=== PATIENT | male | born 1950 | race Caucasian/White ===

== ENCOUNTER → 2018-06-14 09:58 | Outpatient (CLI) | payer MEDICARE, SELFPAY ==
--- NOTE | 2018-06-14 12:24 | NEURO ---
NCS and/or EMG Patient Report Ordering Doctor: Devorah Terry DATE OF SERVICE: 06/14/18 Naren Baker is a 68-year-old male presents for electrodiagnostic testing of the right upper limb. He has chief complaint of numbness pain and weakness in the right hand. Electrodiagnostic findings: The right median motor nerve demonstrates prolonged distal latency with reduced amplitude and reduced conduction velocity. Right ulnar motor response is within normal limits. Prolonged right median sensory distal latency. Prolonged right median F wave. Needle EMG testing reveals no evidence of denervation with normal motor unit action potentials. Electrodiagnostic impression: This is an abnormal study in the right upper limb. 1. Electrodiagnostic findings demonstrate right-sided median mononeuropathy. This is consistent with an advanced right carpal tunnel syndrome.
== END ==
PROVIDERS: Family Provider Family Medicine; PCP Family Medicine; Referring Provider Internal Medicine Rheumatology; Visit Provider Internal Medicine Rheumatology
DX: R20.2 Paresthesia of skin (principal); R20.0 Anesthesia of skin; M06.09 Rheumatoid arthritis without rheumatoid factor, multiple sites; G56.01 Carpal tunnel syndrome, right upper limb; M17.0 Bilateral primary osteoarthritis of knee; I26.99 Other pulmonary embolism without acute cor pulmonale; G40.909 Epilepsy, unspecified, not intractable, without status epilepticus; I10 Essential (primary) hypertension; G47.33 Obstructive sleep apnea (adult) (pediatric); F32.89 Other specified depressive episodes; I87.2 Venous insufficiency (chronic) (peripheral); Z79.899 Other long term (current) drug therapy
CPT/HCPCS: 95886; 95909

== ENCOUNTER → 2022-08-17 | Outpatient (CLI) | payer MEDICARE, SELFPAY | END | disposition home or self-care (01) | PROVIDERS: PCP Family Medicine; Visit Provider Internal Medicine Critical Care Medicine | DX: G47.33 Obstructive sleep apnea (adult) (pediatric) (principal) | CPT/HCPCS: 95810 ==

== ENCOUNTER 2022-10-06 06:37 | Day surgery (SDC) | payer MEDICARE, SELFPAY ==
[2022-10-06] MEDS: Lactated Ringers 1,000 ML 15 ML IV (07:22)
[2022-10-06 07:29] VITALS: BP 140/80; PULSE 62; RESP 18; TEMP 37.4; O2SAT 96; BMI 33.8
--- NOTE | 2022-10-06 08:50 | FOR_PTH ---
PATIENT: STEF MOSES LOC: [facility] [place][id number] AGE/SX: 72/M ROOM: RE10/06/[address]: Dr. Rober Samuels MD : 1950 BED: DIS: 10/06/2022 SPEC #: [id number] RECD: 10/06/22 11:19 STATUS: JOS GRANGER #: [id number] ANGELINA: 10/06/22 08:[address]: Rober Samuels DEPT: SURGICAL PATHOLOGY RECD BY: Saira Santamaria ENTERED: 10/06/22 12:26 SP TYPE: FORESKIN OTHR DR: Dr. Lakhwinder Zafar MD Tissues: Skin of foreskin, NOS Procedures: Surgery Specimen Level III HEADER OPERATION: Circumcision PRE-OP DIAGNOSIS: Phimosis TISSUE SUBMITTED: Foreskin MICROSCOPIC DIAGNOSIS Foreskin, circumcision: Focal mild chronic inflammation. DANYA:kavin 10/07/2022 MICROSCOPIC DESCRIPTION Slides are reviewed. GROSS DESCRIPTION Received in fixative is one container labeled with the patient's name and designated foreskin. The specimen consists of three irregular fragments of glistening guzman mucosa with hemorrhagic reddish-guzman submucosa that in aggregate measure 4.5 x 4.0 x 2.0 cm. Serial sections do not reveal mass lesions. Parking Line Painter sections are submitted in one cassette. / AM:kavin 10/06/2022 TC:3 CPT: 58418
[2022-10-06] MEDS: Cefazolin 2 GM in 0.9% Normal Saline 100 ML IV (09:04)
[2022-10-06] MEDS: Bupivacaine Mpf 0.5% 30 ML VIAL (10:01)
--- NOTE | 2022-10-06 10:09 | DCINST_ITS ---
Discharge Instructions Diet Discharge Diet: No restrictions, Light diet - advance as tolerated and Soft diet Activity Discharge Activity: Return to Normal Activity Dressing / Incision Call your doctor if your incision/area has: Continuous Slow Oozing, Increased Pain/ Swelling, Increased Redness and Foul Smelling Discharge Call your doctor if you observe: Fever of 101 or Higher, Numbness or Tingling, S hortness of breath, Dizziness, Calf discomfort and Uncontrolled pain Follow Up Care Please Follow Up With: Rober Samuels MD When: 2 weeks Test Results: Test results from this visit will be discussed in further detail at your follow- up appointment, if applicable. Discharge Plan Admission Primary Reason for Your Visit: Circumcision Attending Provider: Rober Samuels Primary Care Provider: Lakhwinder Zafar Discharge Orders/Prescriptions Prescriptions: New Neosporin ([id number]) 3.5mg-400 unit- 5,000 unit/gram ointment 1 applic topical TID Qty: 28.3 0RF Rx Instructions: apply to penis three times per day Continued lisinopril 20 mg tablet 20 mg PO DAILY amlodipine 10 mg tablet 10 mg PO DAILY warfarin 1 mg tablet 7 mg PO DAILY ferrous sulfate 325 mg (65 mg iron) tablet 325 mg PO DAILY sertraline [Zoloft] 100 mg tablet 100 mg PO DAILY lamotrigine 150 mg tablet 150 mg PO BID oxcarbazepine 150 mg tablet 150 mg PO DAILY pregabalin [Lyrica] 75 mg capsule 75 mg PO TID furosemide [Lasix] 20 mg tablet 40 mg PO BID tamsulosin 0.4 mg capsule 0.4 mg PO QHS prednisone 10 mg tablet 10 mg PO DAILY PRN (Reason: RA FLARE) hydrocodone-acetaminophen 5-300 mg tablet 1 tab PO PRN PRN (Reason: Pain) vitamin B complex [B Complex-Vitamin B12] Tablet 1 tab PO DAILY Tart Willis Extract 1,000 mg capsule 1,000 mg PO DAILY finasteride 5 mg tablet 5 mg PO DAILY metoprolol tartrate 50 mg tablet 50 mg PO BID oxcarbazepine 150 mg Tablet 300 mg PO QHS enoxaparin [Lovenox] 100 mg/mL Syringe 100 mg SUBCUT DAILY Referrals / Follow Up: Lakhwinder Zafar MD [Primary Care Provider] - Disposition Disposition (needs filled in before D/C Order can be placed): Home, Self Care
--- NOTE | 2022-10-06 10:09 | HP.PCM_ITS ---
HPI - General General Date of Service: 10/06/22 Chief Complaint: Phimosis and meatal stenosis [facility] Narrative STEF MOSES, is a 72 M who presents to do a circumcision and also a meatotomy [facility] Medical History (Updated 09/29/22 @ 11:42 by Magi Garcia) Ambulates with cane Anxiety BPH (benign prostatic hyperplasia) Cardiology follow-up encounter CHF (congestive heart failure) Depression Dietary restriction Diverticulosis Factor V Leiden mutation History of echocardiogram History of edema History of GI bleed History of stress test Hypertension Low iron Non-smoker Paroxysmal A-fib Prostate disease Pulmonary embolism Rash Rheumatoid arthritis Seizure disorder Shortness of breath on exertion Walker as ambulation aid Wears glasses Home Medications amlodipine 10 mg tablet 10 mg PO DAILY 07/19/22 [History Last Taken 10/06/22] ferrous sulfate 325 mg (65 mg iron) tablet 325 mg PO DAILY 07/19/22 [History Last Taken Unknown] finasteride 5 mg tablet 5 mg PO DAILY 07/19/22 [History Last Taken Unknown] furosemide 20 mg tablet (Lasix) 40 mg PO BID 07/19/22 [History Last Taken Unknown] hydrocodone 5 mg-acetaminophen 300 mg tablet 1 tab PO PRN PRN Pain 07/19/22 [History Last Taken Unknown] lamotrigine 150 mg tablet 150 mg PO BID 07/19/22 [History Last Taken 10/06/22] lisinopril 20 mg tablet 20 mg PO DAILY 07/19/22 [History Last Taken 10/06/22] metoprolol tartrate 50 mg tablet 50 mg PO BID 07/19/22 [History Last Taken 10/06/22] oxcarbazepine 150 mg tablet 150 mg PO DAILY 07/19/22 [History Last Taken 10/06/22] prednisone 10 mg tablet 10 mg PO DAILY PRN RA FLARE 07/19/22 [History Last Taken Unknown] pregabalin 75 mg capsule (Lyrica) 75 mg PO TID 07/19/22 [History Last Taken 10/06/22] sertraline 100 mg tablet (Zoloft) 100 mg PO DAILY 07/19/22 [History Last Taken Unknown] sour willis extract 1,000 mg capsule (Tart Willis Extract) 1,000 mg PO DAILY 07/19/22 [History Last Taken Unknown] tamsulosin 0.4 mg capsule 0.4 mg PO QHS 07/19/22 [History Last Taken Unknown] vitamin B complex (B Complex-Vitamin B12 tablet) 1 tab PO DAILY 07/19/22 [History Last Taken Unknown] warfarin 1 mg tablet 7 mg PO DAILY 07/19/22 [History Last Taken 10/01/22] enoxaparin 100 mg/mL subcutaneous syringe (Lovenox) 100 mg subcut DAILY BRIDGING 09/29/22 [History Last Taken 10/05/22] oxcarbazepine 150 mg tablet 300 mg PO QHS 09/29/22 [History Last Taken Unknown] neomycin-bacitracn Zn-polymyx 3.5 mg-400 unit-5,000 unit/gram top oint (Neosporin ([id number])) 1 applic topical TID #28.3 grams 10/06/22 [Rx Last Taken Unknown] Allergy/AdvReac Type Severity Reaction Status Date / Time No Known Allergies Allergy Unverified 09/29/22 11:14 Surgical History (Updated 09/29/22 @ 11:42 by Magi Garcia) History of carpal tunnel surgery of left wrist History of carpal tunnel surgery of right wrist History of esophagogastroduodenoscopy (EGD) Hx of oral surgery Hx of total knee arthroplasty Social History (Updated 07/20/22 @ 05:[address] Matthew Bellamy MD) household members: spouse housing: house current occupational status: retired history of recent travel: No Smoking Status: Never smoker alcohol intake: never substance use type: does not use Vital Signs Vital Signs Vital Signs: 10/06/22 07:29 10/06/22 07:29 Temperature 99.4 F H Temperature Source Temporal Pulse Rate 62 Respiratory Rate 18 Respiratory Pattern Normal Blood Pressure 140/80 H Blood Pressure Mean 100 Blood Pressure Source Monitor Blood Pressure Position Semi-Fowlers Blood Pressure Location Left Arm Pulse Ox 96 Oxygen Delivery Method Room Air Weight Weight: 101 kg Body Mass Index (BMI) 33.8
--- NOTE | 2022-10-06 10:11 | PCM.OPRPT ---
Report of Operation Date of Procedure: 10/06/22 Pre-Operative Diagnosis: Phimosis and stricture at the meatus Post-Operative Diagnosis: The same Surgery/Procedure Performed:: Circumcision and meatotomy Description of Surgical Findings:: Patient was taken back to the operating room after smooth induction of general anesthesia the penis was shaved prepped and draped in usual sterile fashion on examination he had a very tight scar down foreskin that was basically adherent to the glans of the penis with a pinpoint opening I made a circumcision ventral incision at the edge of the glans all the way around dissected down to I got the edge of the glans and then bivalve the foreskin off the glans I did essentially dissect the foreskin that was adhered to the glans all the way around freeing it up so it is a lot of inflammation between the glans and the foreskin at the dissect between the glans and the foreskin to get the foreskin off the glans was all scarred down once I removed all the foreskin that was stuck to the glans then the meatus was also scarred down I cut this open and then I placed several stitches in the meatus to do a meatotomy and open up the meatus to keep from scarring down we then reapproximated the shaft skin to the subcoronal skin all the way around to complete the circumcision bandages dressings and Coban was placed on the penis patient will be given instruction to remove the Coban to tomorrow and he will place neuro Neosporin cream on the tip of the penis to allow to heal 3 times a day follow-up in 2 weeks for checkup Surgeon: Rober Samuels Type of Anesthesia: General Admit VTE Documentation VTE Present on Admission: No VTE Mechan Device Prophylaxis: SCD's VTE Pharm Prophylaxis ordered?: No
[2022-10-06 10:19] VITALS: BP 120/68; BP 140/80; PULSE 71; RESP 18; TEMP 36.2; O2SAT 93
[2022-10-06 10:30] VITALS: BP 115/67; BP 140/80; PULSE 68; RESP 18; O2SAT 95
[2022-10-06 10:43] VITALS: BP 119/72; BP 140/80; PULSE 67; RESP 18; TEMP 36.2; O2SAT 93
[2022-10-06 10:47] VITALS: BP 122/70; BP 140/80; PULSE 72; RESP 18; TEMP 36.2; O2SAT 94
[2022-10-06 11:42] VITALS: BP 109/61; BP 140/80; PULSE 71; RESP 16; TEMP 37.1; O2SAT 92
== END 2022-10-06 12:01 | disposition home or self-care (01) ==
LOC: SDC 06:42 → AC 06:44
PROVIDERS: PCP Family Medicine; Referring Provider Urology; Visit Provider Urology
PROC: (CPT 54161; principal; 2022-10-06 08:40)
DX: N47.1 Phimosis (principal); I50.9 Heart failure, unspecified; I11.0 Hypertensive heart disease with heart failure; N35.811 Other urethral stricture, male, meatal; F41.9 Anxiety disorder, unspecified; F32.A Depression, unspecified; G47.33 Obstructive sleep apnea (adult) (pediatric); E61.1 Iron deficiency; N40.0 Benign prostatic hyperplasia without lower urinary tract symptoms; Z79.899 Other long term (current) drug therapy; Z79.01 Long term (current) use of anticoagulants
CPT/HCPCS: 54161; 53020; 88304; J7120; J2405

== ENCOUNTER → 2022-10-11 | Outpatient (CLI) | payer MEDICARE, SELFPAY ==
--- NOTE | 2022-10-12 10:19 | PFT ---
INTRODUCTION: The patient is a 72-year-old male that presents for pulmonary function studies secondary to a diagnosis of pulmonary embolism. Respiratory therapy reported good patient effort. Bronchodilators were used during testing. INTERPRETATION: Forced expiration spirometry demonstrates no evidence of a large airways obstructive ventilatory defect. There was no significant response to aerosolized bronchodilators. Spirograms are of good quality and plateau normally. Body plethysmography was performed and revealed a decreased TLC to 4.1 L, 68% of predicted, indicative of a moderate restrictive ventilatory impairment. Diffusing capacity by single breath CO was within normal limits. IMPRESSION: Moderate restrictive ventilatory impairment with preserved diffusing capacity.
== END | disposition home or self-care (01) ==
LOC: PSN 10:25
PROVIDERS: PCP Family Medicine; Referring Provider Internal Medicine Critical Care Medicine; Visit Provider Internal Medicine Critical Care Medicine
DX: J90 Pleural effusion, not elsewhere classified (principal)
CPT/HCPCS: 94060; 94726; 94729

== ENCOUNTER → 2022-10-15 | Outpatient (CLI) | payer MEDICARE, SELFPAY ==
[2022-10-15 12:30] VITALS: PULSE 64; PULSE 70; PULSE 74; PULSE 80; PULSE 81; PULSE 84; PULSE 87; PULSE 88; O2SAT 89; O2SAT 90; O2SAT 91; O2SAT 92; O2SAT 93
--- NOTE | 2022-10-15 12:49 | CT_ITS ---
INDICATION Right lower lobe infiltrate and left pleural effusion: Concern for ILD. EXAMINATION: CT CHEST WITHOUT CONTRAST - CT Chest W/O Contrast Injection TECHNIQUE: Helically acquired images were obtained of the chest. A radiation dose optimization technique was used for this scan. IV Contrast dosage and agent: None. COMPARISON: None. FINDINGS: LUNGS, PLEURA AND LARGE AIRWAYS: Small bilateral pleural effusions, right greater than left. Minimal patchy density containing a calcified granuloma at the left lung base thought to be dependent change. Since segmental atelectasis is also noted in the right lung base. No pneumothorax. THYROID: No thyroid lesions. HEART AND PERICARDIUM: Heart size is normal. No pericardial effusion. CORONARY ARTERIES: Minimal coronary artery calcifications are noted. VESSELS: Thoracic aorta is not dilated. Normal pulmonary arteries. MEDIASTINUM AND JELLY: No mediastinal or hilar adenopathy. Esophagus is unremarkable. No hiatal hernia. UPPER ABDOMEN: There is a gallstone without acute cholecystitis. The upper abdomen is otherwise grossly normal. BONES: Degenerative changes of the thoracic spine. CT/Chest without Contrast IMPRESSION: 1. Small bilateral pleural effusions with subsegmental atelectasis. 2. Calcified granulomata at the left lung base. 3. Degenerative changes of the thoracic spine. Electronically Signed: Paulino Biggs DO at 20:15 EDT Reading Location ID and State: [address] [place] [address] Tel [phone], Service support ,
--- NOTE | 2022-10-17 06:42 | PCM.PSN.6M ---
PSN 6 Minute Walk Test 6 Minute Walk Test 6 Minute Walk Test: 6 Minute Walk Test PSN:6-Minute Walk Test Start: 10/15/22 12:50 Freq: Status: Active Protocol: [id number] Document 10/15/22 12:30 [facility] (Rec: 10/15/22 12:53 [facility] [id number]) 6 Minute Walk Test Date Performed 10/15/22 Time Performed 12:30 Height 5 ft 8 in Weight: 221 lb Weight in Pounds 221.[address]: Dr Bellamy Assistive device used: Cane Pre-test Oxygen Delivery Method Room Air Pulse Ox (%) 93 Pulse Rate (60-100 beats/min) 64 Dyspnea Hermes Scale (0-10) 0 Exertion Hermes Scale (6-20) 6 1st minute Oxygen Delivery Method Room Air Pulse Ox (%) 92 Pulse Rate (60-100 beats/min) 74 2nd minute Oxygen Delivery Method Room Air Pulse Ox (%) 91 Pulse Rate (60-100 beats/min) 80 3rd minute Oxygen Delivery Method Room Air Pulse Ox (%) 90 Pulse Rate (60-100 beats/min) 81 4th minute Oxygen Delivery Method Room Air Pulse Ox (%) 89 Pulse Rate (60-100 beats/min) 84 5th minute Oxygen Delivery Method Room Air Pulse Ox (%) 89 Pulse Rate (60-100 beats/min) 87 6th minute Oxygen Delivery Method Room Air Pulse Ox (%) 90 Pulse Rate (60-100 beats/min) 88 Dyspnea Hermes Scale (0-10) 0.5 Exertion Hermes Scale (6-20) 13 Post-test Oxygen Delivery Method Room Air Pulse Ox (%) 92 Pulse Rate (60-100 beats/min) 70 Full Laps Walked 12 Partial Lap, Number of Tiles Walked 30 Total Distance Walked (ft) 738 Interpretation Interpretation: The patient ambulated 738 feet over the course of 6 minutes beginning on room air with the use of a cane. Pretesting oxygen saturation was noted to be 93% on room air. With ambulation, the ilda oxygen saturation was 89%. This represents a significant exertional oxygen desaturation, consistent with a pulmonary limitation to exercise tolerance. Recommendations Recommendations: There is no indication for the use of supplemental oxygen at this time. However, close interval follow-up was recommended, given the degree of oxygen desaturation noted during this study.
== END | disposition home or self-care (01) ==
LOC: CT 12:27
PROVIDERS: PCP Family Medicine; Referring Provider Internal Medicine Critical Care Medicine; Visit Provider Internal Medicine Critical Care Medicine
DX: J90 Pleural effusion, not elsewhere classified (principal); M06.9 Rheumatoid arthritis, unspecified
CPT/HCPCS: 71250; 94618

== ENCOUNTER 2023-02-09 08:09 | Observation (INO) | payer MEDICARE, SELFPAY ==
[2023-01-28 15:01] LABS: Absolute Lymphocyte Count 1.44 X10^3/uL (0.83-4.51); Absolute Neutrophil Count 3.6 X10^3/uL (2.0-7.7); Basophil# 0.02 X10^3/uL; Basophil% 0.3 % (0-1); Eosinophil# 0.16 X10^3/uL; Eosinophils% 2.8 % (0-5); Hematocrit 42.4 % (40-54); Hemoglobin 13.4 g/dL (13.0-16.5); Lymphocyte # 1.44 X10^3/ul (0.83-4.51); Mean Corp Hgb Conc 31.6 g/dL (32-36); Mean Corpuscular Hgb 28.6 pg (27.0-32.0); Mean Corpuscular Volume 90.6 fL (80-94); Monocyte# 0.51 X10^3/uL; Monocyte% 8.9 % (0-10); NRBC Flagged by Analyzer 0 % (0-5); Neutrophil % 62.7 % (47-70); Platelet Count 188 K/mm3 (150-450); RBC Distribution Width CV 15.8 % (11.6-14.6); RBC Distribution Width SD 52.5 fl (35.1-43.9); Red Blood Count 4.68 M/mm3 (4.6-6.2); White Blood Count 5.8 K/mm3 (4.4-11.0)
[2023-01-28 15:07] LABS: Partial Thromboplast Time 45.1 Seconds (24.1-36.2)
[2023-01-28 15:18] LABS: Anion Gap 3 (5-15); BUN 30 mg/dL (7-18); BUN/Creat Ratio 19.1 RATIO (10-20); Calcium,Total 8.5 mg/dL (8.5-10.1); Chloride 108 mmol/L (98-107); Creatinine, Serum 1.57 mg/dL (0.70-1.30); EST Glomerular Filtration Rate 46 mL/min (>60); Est Glom Filt Rate - Afr Amer 56 mL/min (>60); Glucose 121 mg/dL (74-106); Potassium 4.3 mmol/L (3.5-5.1); Sodium Level 141 mmol/L (136-145)
[2023-02-01 15:08] LABS: Lamotrigine (Lamictal) Level 3.5 ug/mL (2.0-20.0)
[2023-02-09] VITALS (11 sets, daily range): BP systolic 114–144; BP diastolic 65–86; PULSE 52–63; RESP 16–18; TEMP 36.1–36.9; O2SAT 93–97; BMI 35.4
[2023-02-09 06:47] LABS: INR Fingerstick 1.3
[2023-02-09] MEDS: Lactated Ringers 1,000 ML 15 ML IV ×2 (07:19→09:31)
--- NOTE | 2023-02-09 08:10 | HP.PCM_ITS ---
[facility] - General General Date of Service: 02/09/23 Chief Complaint: BPH with obstruction [facility] Narrative STEF MOSES, is a 72 M who presents for transurethral resection of the prostate he has obstruction of the prostate with hypertrophy of the prostate and outlet symptoms. We Viv resected prostate and also has some urge and urge symptoms possible that this may not get better with surgery this was explained to the patient. [facility], [facility] Medical History (Updated 01/26/23 @ 14:25 by Kirill Peoples) Ambulates with cane Anxiety BPH (benign prostatic hyperplasia) Cardiology follow-up encounter CHF (congestive heart failure) Depression Dietary restriction Diverticulosis Factor V Leiden mutation History of echocardiogram History of edema History of GI bleed History of stress test Hypertension Low iron Non-smoker Paroxysmal A-fib Prostate disease Pulmonary embolism Rash Rheumatoid arthritis Seizure disorder Shortness of breath on exertion Walker as ambulation aid Wears glasses Home Medications amlodipine 10 mg tablet 10 mg PO DAILY 07/19/22 [History Last Taken 02/09/23] ferrous sulfate 325 mg (65 mg iron) tablet 325 mg PO DAILY 07/19/22 [History Last Taken 02/08/23] furosemide 20 mg tablet (Lasix) 40 mg PO BID 07/19/22 [History Last Taken Unknown] hydrocodone 5 mg-acetaminophen 300 mg tablet 1 tab PO PRN PRN Pain 07/19/22 [History Last Taken 02/08/23] lamotrigine 150 mg tablet 150 mg PO BID 07/19/22 [History Last Taken 02/09/23] lisinopril 20 mg tablet 20 mg PO DAILY 07/19/22 [History Last Taken 10/06/22] metoprolol tartrate 50 mg tablet 50 mg PO BID 07/19/22 [History Last Taken 02/09/23] oxcarbazepine 150 mg tablet 150 mg PO DAILY 07/19/22 [History Last Taken 10/06/22] prednisone 10 mg tablet 10 mg PO DAILY PRN RA FLARE 07/19/22 [History Last Taken 02/09/23] pregabalin 75 mg capsule (Lyrica) 75 mg PO TID 07/19/22 [History Last Taken 02/09/23] sertraline 100 mg tablet (Zoloft) 100 mg PO DAILY 07/19/22 [History Last Taken Unknown] sour willis extract 1,000 mg capsule (Tart Willis Extract) 1,000 mg PO DAILY 07/19/22 [History Last Taken 02/09/23] vitamin B complex (B Complex-Vitamin B12 tablet) 1 tab PO DAILY 07/19/22 [History Last Taken 02/08/23] warfarin 1 mg tablet 7 mg PO DAILY 07/19/22 [History Last Taken 02/03/23] oxcarbazepine 150 mg tablet 300 mg PO QHS 09/29/22 [History Last Taken Unknown] ciprofloxacin HCl 500 mg tablet (Cipro) 500 mg PO BID #10 tabs 02/09/23 [Rx Last Taken Unknown] Allergy/AdvReac Type Severity Reaction Status Date / Time No Known Allergies Allergy Verified 02/09/23 07:07 Surgical History (Updated 09/29/22 @ 11:42 by Magi Garcia) History of carpal tunnel surgery of left wrist History of carpal tunnel surgery of right wrist History of esophagogastroduodenoscopy (EGD) Hx of oral surgery Hx of total knee arthroplasty Social History (Updated 07/20/22 @ 05:[address] Matthew Bellamy MD) household members: spouse housing: house current occupational status: retired history of recent travel: No Smoking Status: Never smoker alcohol intake: never substance use type: does not use Vital Signs Vital Signs Vital Signs: 02/09/23 07:10 02/09/23 07:10 Temperature 97.2 F L Temperature Source Temporal Pulse Rate 52 L Respiratory Rate 18 Respiratory Pattern Normal Blood Pressure 116/70 Blood Pressure Mean 85 Blood Pressure Source Monitor Blood Pressure Position Semi-Fowlers Blood Pressure Location Left Arm Pulse Ox 95 Oxygen Delivery Method Room Air Weight Weight: 105.6 kg Body Mass Index (BMI) 35.4 Results Lab / Micro Data 01/28/23 13:42 01/28/23 13:42 Labs: Laboratory Results - last 24 hr 02/09/23 06:46: POC PT 15.0 H, INR 1.3
--- NOTE | 2023-02-09 08:11 | DCINST_ITS ---
Discharge Instructions Diet Discharge Diet: No restrictions Activity Discharge Activity: Return to Normal Activity and May Not Drive (while taking narcotic pain medications.) Follow Up Care Please Follow Up With: Rober Samuels MD When: Call [phone] for an appointment Test Results: Test results from this visit will be discussed in further detail at your follow- up appointment, if applicable. Discharge Plan Admission Primary Reason for Your Visit: turp Attending Provider: Rober Samuels Primary Care Provider: Lakhwinder Zafar Consulting Providers: Cezar Thakkar Discharge Orders/Prescriptions Prescriptions: New ciprofloxacin HCl [Cipro] 500 mg tablet 500 mg PO BID Qty: 10 0RF Continued lisinopril 20 mg tablet 20 mg PO DAILY amlodipine 10 mg tablet 10 mg PO DAILY ferrous sulfate 325 mg (65 mg iron) tablet 325 mg PO DAILY sertraline [Zoloft] 100 mg tablet 100 mg PO DAILY lamotrigine 150 mg tablet 150 mg PO BID oxcarbazepine 150 mg tablet 150 mg PO DAILY pregabalin [Lyrica] 75 mg capsule 75 mg PO TID furosemide [Lasix] 20 mg tablet 40 mg PO BID prednisone 10 mg tablet 10 mg PO DAILY PRN (Reason: RA FLARE) hydrocodone-acetaminophen 5-300 mg tablet 1 tab PO PRN PRN (Reason: Pain) vitamin B complex [B Complex-Vitamin B12] Tablet 1 tab PO DAILY Tart Willis Extract 1,000 mg capsule 1,000 mg PO DAILY metoprolol tartrate 50 mg tablet 50 mg PO BID oxcarbazepine 150 mg Tablet 300 mg PO QHS Held warfarin 1 mg tablet 7 mg PO DAILY Hold Instructions: Resume on 02/23/23. Discontinued tamsulosin 0.4 mg capsule 0.4 mg PO QHS finasteride 5 mg tablet 5 mg PO DAILY Referrals / Follow Up: Rober Samuels MD [Med Staff - Active Staff] - Lakhwinder Zafar MD [Primary Care Provider] - Disposition Disposition (needs filled in before D/C Order can be placed): Home, Self Care
--- NOTE | 2023-02-09 08:25 | PROS_PTH ---
PATIENT: STEF MOSES LOC: [facility] U#:[id number] AGE/SX: 72/M [place] [facility] [place]: Dr. Rober Samuels MD : 1950 BED: 1 DIS: 02/10/2023 SPEC #: [id number] RECD: 02/09/23 11:45 STATUS: JOS GRANGER #: [id number] ANGELINA: 02/09/23 08:[address]: Rober Samuels DEPT: SURGICAL PATHOLOGY RECD BY: Saira Santamaria ENTERED: 02/09/23 12:55 SP TYPE: TURP OTHR DR: MD Dr. Lakhwinder Barnett MD Tissues: Prostate, NOS Procedures: Surgery Specimen Level IV HEADER OPERATION: Cysto, TUR prostate, Olympus PRE-OP DIAGNOSIS: Obstruction of prostate with hypertrophy of prostate and outlet symptoms TISSUE SUBMITTED: Prostate tissue MICROSCOPIC DIAGNOSIS Prostate tissue, transurethral resection: Benign prostatic hyperplasia, glandular and stromal type. Chronic inflammation. DANYA:kavin 02/10/2023 MICROSCOPIC DESCRIPTION Slides are reviewed. GROSS DESCRIPTION Received is one container labeled with the patient's name and designated prostate tissue. The specimen consists of multiple irregular fragments of pink-guzman, rubbery, soft tissue that in aggregate weigh 20.6 gm and measure in aggregate 6.5 x 6.0 x 2.5 cm. The entire specimen is submitted in ten cassettes. / DANYA:kavin 02/09/2023 TC:5 CPT: 13070
[2023-02-09] MEDS: Cefazolin 2 GM in 0.9% Normal Saline 100 ML IV (08:37)
--- NOTE | 2023-02-09 10:18 | OP.PCM_ITS ---
Report of Operation Date of Procedure: 02/09/23 Pre-Operative Diagnosis: BPH with obstruction Post-Operative Diagnosis: The same Surgery/Procedure Performed:: Transurethral section of prostate Description of Surgical Findings:: Patient was taken back to the operating room at the smooth induction of general anesthesia he was placed in dorsolithotomy position. The penis and testicles were prepped and draped in usual sterile fashion. Went into the bladder with a 21 Bangl[place]hi rigid cystourethroscope identified the verumontanum had a like a long verumontanum and he had significant bilateral hypertrophy and then inside the bladder he had a stretched out bladder with heavy trabeculations and saccules and diverticuli throughout the bladder from chronic obstruction. I then switched over to the [employer] bipolar resectoscope and resected started resecting prostate efforts to resected the floor the prostate all the way back to what appeared to be the verumontanum and then I resected the right lobe of the prostate all the way to the apex and anterior tissue then to resect the left lobe the prostate I then switched over the button to come to smooth out the resection but then there was still a lot of tissue switch to switch back over to the resection and Resecting We Eventually Identified the Root and Resected Right Back to the Verumontanum the Sphincter Appeared to Be Intact at the End Did Have a Nice Open Channel All the Way from the Bladder Neck into the Verumontanum I Did a Flow Test He Had Adequate Flow Not a Huge Flow but I Do Want to Resect More since It Was Very Close to the Sphincter so I Just Use the Button to Try to Very Carefully Smooth out the Apical Tissue to the Because Avoid Any Flapping Tissue and Have a Nice Open Channel. He Had an Adequate Flow after This and Then We Ellik out All the Chips Out Of the Bladder Cauterized the Bladder and Prostate Extensively to Obtain Hemostasis and Then Placed a 22 Bangladeshi Catheter in the Bladder for Continuous Irrigation. Patient Anesthetic Was Reversed Taken Back to the PACU in Good Condition We Will Keep Overnight for Irrigation and Then Tomorrow Morning We Will Take out the Catheter for Voiding Trial. Surgeon: Rober Samuels Type of Anesthesia: General Drains: 22fr 3way Estimated Blood Loss (mL): 0 Admit VTE Documentation VTE Present on Admission: No VTE Mechan Device Prophylaxis: SCD's VTE Pharm Prophylaxis ordered?: No
[2023-02-09] MEDS: 0.9% Normal Saline 1,000 ML 75 ML IV (12:36)
[2023-02-09] MEDS: Pregabalin 75 MG Capsule PO ×2 (14:32→21:48)
[2023-02-09] MEDS: Ciprofloxacin 400 MG/200 ML BAG 200 MG IV (15:42)
[2023-02-09] MEDS: Furosemide 40 MG Tablet PO (18:35)
[2023-02-09] MEDS: Metoprolol Tartrate 50 MG Tablet PO (21:47)
[2023-02-09] MEDS: OXcarbazepine 150 MG Tablet 300 MG PO (21:47)
[2023-02-09] MEDS: lamoTRIgine 150 MG Tablet PO (21:48)
[2023-02-09] MEDS: Docusate Sodium 100 MG Capsule 200 MG PO (21:48)
[2023-02-10 00:58] VITALS: BP 135/67; PULSE 74; RESP 16; TEMP 36.8; O2SAT 93
[2023-02-10] MEDS: 0.9% Normal Saline 1,000 ML 75 ML IV (01:15)
[2023-02-10 04:29] VITALS: BP 106/58; PULSE 67; RESP 18; TEMP 36.6; O2SAT 93
[2023-02-10] MEDS: Ciprofloxacin 400 MG/200 ML BAG 200 MG IV (04:51)
[2023-02-10] MEDS: Pregabalin 75 MG Capsule PO (04:56)
--- NOTE | 2023-02-10 07:22 | PCM.PN.GU ---
Subjective Subjective 72-year-old male status post TURP very large prostate very difficult anatomy due to very large resection but hopefully he will have good control of his bladder still we will remove his catheter this morning for voiding trial we discussed what to expect afterwards I did tell the patient has possibly Some bladder control problems initially but this should cure with time since I thought the sphincter was intact at the end of surgery but it was a very large prostate can have a difficult resection. I did see him in the office in 2 weeks for follow-up we will remove the catheter this morning and he can go home after urinate Objective Data Objective Data Vital Signs: Vital Signs Temp Pulse Resp BP Pulse Ox O2 Del Method O2 Flow Rate 97.8 F 67 18 106/58 L 93 Room Air 1 02/10/23 04:02/10/23 04:02/10/23 04:29 02/10/23 04:29 02/10/23 04:29 02/10/23 04:29 02/09/23 14:20 Oxygen Flow Rate (L/min) 1 Oxygen Delivery Method Room Air Weight: 105.6 kg Body Mass Index (BMI) 35.4 Intake & Output: Intake and Output for Last 24 Hours 02/08/23 02/09/23 02/10/23 23:59 23:59 23:59 Intake Total 1310 / 1310 1370.75 / 1370.75 Output Total 4050 / 4050 Balance -2740 / -2740 1370.75 / 1370.75 Lab / Micro Data 01/28/23 13:42 01/28/23 13:42
[2023-02-10 08:09] VITALS: BP 124/73; PULSE 64; RESP 17; TEMP 36.7; O2SAT 94
--- NOTE | 2023-02-10 10:02 | PHA.DC.MC.R ---
Pharmacy [facility] Pharm[facility] Service has performed discharge medication reconciliation and counseling for this patient. The patient was counseled on the following discharge medications and changes in medications for homegoing were reviewed. 1. Ciprofloxacin 2. Warfarin --> hold until 02/23/23 The Reason for Use, instructions for use, and potential side effects were reviewed for all new medications. The patient's questions regarding all of their medications were answered. The patient demonstrated some understanding but would benefit from further education and reinforcement. The patient's discharge medication list was reviewed for discrepancies and discrepancies were resolved. The patient was counselled by Elodia Johnson PharmD Candidate Medications at Discharge Home Medications amlodipine 10 mg tablet 10 mg PO DAILY 07/19/22 ferrous sulfate 325 mg (65 mg iron) tablet 325 mg PO DAILY 07/19/22 furosemide 20 mg tablet (Lasix) 40 mg PO BID 07/19/22 hydrocodone 5 mg-acetaminophen 300 mg tablet 1 tab PO PRN PRN Pain 07/19/22 lamotrigine 150 mg tablet 150 mg PO BID 07/19/22 lisinopril 20 mg tablet 20 mg PO DAILY 07/19/22 metoprolol tartrate 50 mg tablet 50 mg PO BID 07/19/22 oxcarbazepine 150 mg tablet 150 mg PO DAILY 07/19/22 prednisone 10 mg tablet 10 mg PO DAILY PRN RA FLARE 07/19/22 pregabalin 75 mg capsule (Lyrica) 75 mg PO TID 07/19/22 sertraline 100 mg tablet (Zoloft) 100 mg PO DAILY 07/19/22 sour willis extract 1,000 mg capsule (Tart Willis Extract) 1,000 mg PO DAILY 07/19/22 vitamin B complex (B Complex-Vitamin B12 tablet) 1 tab PO DAILY 07/19/22 warfarin 1 mg tablet 7 mg PO DAILY 07/19/22 oxcarbazepine 150 mg tablet 300 mg PO QHS 09/29/22 ciprofloxacin HCl 500 mg tablet (Cipro) 500 mg PO BID #10 tabs 02/09/23
[2023-02-10] MEDS: Docusate Sodium 100 MG Capsule 200 MG PO (10:06)
[2023-02-10] MEDS: lamoTRIgine 150 MG Tablet PO (10:15)
[2023-02-10] MEDS: Furosemide 40 MG Tablet PO (10:15)
[2023-02-10] MEDS: Lisinopril 20 MG Tablet PO (10:15)
[2023-02-10] MEDS: Sertraline 100 MG Tablet PO (10:15)
[2023-02-10 10:16] VITALS: PULSE 64
[2023-02-10] MEDS: Metoprolol Tartrate 50 MG Tablet PO (10:16)
[2023-02-10] MEDS: amLODIPine 10 MG Tablet PO (10:16)
[2023-02-10] MEDS: OXcarbazepine 150 MG Tablet PO (10:16)
--- NOTE | 2023-02-10 12:18 | NURSING ---
Pt voided twice since Denis taken out this morning. Pt voided 50cc of drk red urine, no clots. Pt voided again about an hour after the first void and voided 100cc total, still red but lightening up and no clots noted. Pt will be discharged. Has meds from Pharmacy, had them delivered from our [facility].
== END 2023-02-10 13:03 | disposition home or self-care (01) ==
LOC: ACINP 10:00 → SDC 10:01 → MS3 10:01
PROVIDERS: Anesthesiology; Admitting Provider Urology; PCP Family Medicine; Referring Provider Urology; Visit Provider Urology
PROC: (CPT 52601; principal; 2023-02-09 08:15)
DX: N40.1 Benign prostatic hyperplasia with lower urinary tract symptoms (principal); M06.9 Rheumatoid arthritis, unspecified; I11.0 Hypertensive heart disease with heart failure; I50.9 Heart failure, unspecified; I48.0 Paroxysmal atrial fibrillation; G40.909 Epilepsy, unspecified, not intractable, without status epilepticus; D68.51 Activated protein C resistance; N13.8 Other obstructive and reflux uropathy; Z86.711 Personal history of pulmonary embolism; G47.33 Obstructive sleep apnea (adult) (pediatric); Z79.899 Other long term (current) drug therapy; Z79.01 Long term (current) use of anticoagulants
CPT/HCPCS: 52601; 00914; 36415; 36416; 80048; 82542; 85025; 85610; 85730; 88305; 94668; 96361; 96365; 96366; 99221; J7030; J7120; G0378; J0744

== ENCOUNTER → 2023-08-24 | Outpatient (CLI) | payer MEDICARE, SELFPAY ==
[2023-08-24 16:41] LABS: Amphetamine Urine VISTA NEGATIVE (<1000 ng/mL); Barbiturate Urine VISTA NEGATIVE (< 200 ng/mL); Benzodiazepine Urine VISTA NEGATIVE (< 200 ng/mL); Cocaine Urine VISTA NEGATIVE (< 300 ng/mL); Ecstacy Urine VISTA NEGATIVE (< 500 ng/mL); Methadone Urine VISTA NEGATIVE (< 300 ng/mL); PCP Urine VISTA NEGATIVE (< 25 ng/mL); THC Urine VISTA NEGATIVE (< 50 ng/mL); Vista UDS pH Range 5
== END | disposition home or self-care (01) ==
PROVIDERS: PCP Family Medicine; Referring Provider Anesthesiology; Visit Provider Anesthesiology
DX: F11.20 Opioid dependence, uncomplicated (principal)
CPT/HCPCS: 80307

== ENCOUNTER 2024-01-11 08:43 | Outpatient (RCR) | payer MEDICARE, SELFPAY ==
[2024-01-11 09:04] VITALS: BP 135/72; PULSE 76; RESP 18; TEMP 36.6
--- NOTE | 2024-01-11 11:24 | HP.PCM_ITS ---
History of Present Illness Date of Service: 01/11/24 Chief Complaint: Follow-up on right buttocks abscess that opened and is now tunneling. 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 Eventually got worse and was sent to [facility] for surgical debridement and cultures was treated there with PICC line and a wound VAC. He is currently on a wound VAC draining a lot of fluid slight odor but not anything real bad. Does have 2 tunneling areas. He does have history of A-fib and congestive heart failure and had a DVT in the past and is currently on Coumadin. [facility] Medical History Wears glasses Depression Anxiety Rash Walker as ambulation aid Ambulates with cane Prostate disease Low iron Pulmonary embolism Dietary restriction Diverticulosis History of GI bleed Non-smoker Shortness of breath on exertion History of edema History of echocardiogram History of stress test Cardiology follow-up encounter BPH (benign prostatic hyperplasia) CHF (congestive heart failure) Paroxysmal A-fib Hypertension Seizure disorder Factor V Leiden mutation Rheumatoid arthritis Home Medications ?Medication ?Instructions ?Recorded ?Last Taken ?Type amlodipine 10 mg tablet 10 mg PO DAILY 07/19/22 02/09/23 History ferrous sulfate 325 mg (65 mg 325 mg PO DAILY 07/19/22 02/08/23 History iron) tablet furosemide 20 mg tablet (Lasix) 40 mg PO BID 07/19/22 Unknown History hydrocodone 5 mg-acetaminophen 300 1 tab PO PRN PRN Pain 07/19/22 02/08/23 History mg tablet lamotrigine 150 mg tablet 150 mg PO BID 07/19/22 02/09/23 History lisinopril 20 mg tablet 20 mg PO DAILY 07/19/22 10/06/22 History metoprolol tartrate 50 mg tablet 50 mg PO BID 07/19/22 02/09/23 History oxcarbazepine 150 mg tablet 150 mg PO DAILY 07/19/22 10/06/22 History prednisone 10 mg tablet 10 mg PO DAILY PRN RA FLARE 07/19/22 02/09/23 History pregabalin 75 mg capsule (Lyrica) 75 mg PO TID 07/19/22 02/09/23 History sertraline 100 mg tablet (Zoloft) 100 mg PO DAILY 07/19/22 Unknown History sour willis extract 1,000 mg 1,000 mg PO DAILY 07/19/22 02/09/23 History capsule (Tart Willis Extract) vitamin B complex (B 1 tab PO DAILY 07/19/22 02/08/23 History Complex-Vitamin B12 tablet) warfarin 1 mg tablet 7 mg PO DAILY 07/19/22 02/03/23 History oxcarbazepine 150 mg tablet 300 mg PO QHS 09/29/22 Unknown History oxybutynin chloride 10 mg mg PO 04/27/23 Unknown History tablet,extended release 24 hr potassium chloride 10 mEq meq PO 04/27/23 Unknown History tablet,extended release amoxicillin 875 mg-potassium 1 tab PO BID 01/11/24 Unknown History clavulanate 125 mg tablet amoxicillin 875 mg-potassium 1 tab PO BID 01/11/24 Unknown History clavulanate 125 mg tablet Allergy/AdvReac Type Severity Reaction Status Date / Time No Known Allergies Allergy Verified 04/27/23 08:44 Surgical History S/P TURP (~01/2023) History of esophagogastroduodenoscopy (EGD) Hx of oral surgery Hx of total knee arthroplasty History of carpal tunnel surgery of right wrist History of carpal tunnel surgery of left wrist Social History household members: spouse housing: house current occupational status: retired history of recent travel: No Smoking Status: Never smoker alcohol intake: never substance use type: does not use ROS Constitutional Constitutional: Reports systems reviewed and no addt'l complaints, except as documented Eyes Eyes: Reports systems reviewed and no addt'l complaints, except as documented ENT HEENT: Reports systems reviewed and no addt'l complaints, except as documented Cardiovascular Cardiovascular: Reports systems reviewed and no addt'l complaints, except as documented Respiratory/Chest Respiratory/Chest: Reports systems reviewed and no addt'l complaints, except as documented Gastrointestinal Gastrointestinal: Reports systems reviewed and no addt'l complaints, except as documented Genitourinary Genitourinary: Reports systems reviewed and no addt'l complaints, except as do cumented Musculoskeletal Musculoskeletal: Reports systems reviewed and no addt'l complaints, except as documented Integumentary Integumentary: Reports wounds and other Details: Rather large encompassing his right gluteal tyrell wound with positive depth and tunneling. Does have some odor Neurologic Neurologic: Reports systems reviewed and no addt'l complaints, except as documented Psychiatric Psychiatric: Reports systems reviewed and no addt'l complaints, except as documented Endocrine Endocrinology: Reports systems reviewed and no addt'l complaints, except as documented Hematologic/Lymphatic Hematologic/Lymphatic: Reports systems reviewed and no addt'l complaints, except as documented Allergic/Immunologic Allergic/Immunologic: Reports systems reviewed and no addt'l complaints, except as documented Vital Signs Vital Signs Vital Signs: 01/11/24 09:04 Temperature 98 F Temperature Source Temporal Pulse Rate 76 Respiratory Rate 18 Blood Pressure 135/72 H Blood Pressure Mean 93 Blood Pressure Source Monitor Blood Pressure Position Sitting Blood Pressure Location Right Arm Oxygen Delivery Method Room Air Physical Exam Const oriented x3 General Appearance: cooperative Exam Limitations: no limitations HEENT normocephalic Eyes General Eye: normal appearance of both eyes Neck General: normal visual inspection Resp normal respiratory effort Effort and Inspection: able to speak in complete sentences Cardio regular rate and regular rhythm GI Palpation: soft and no hepatosplenomegaly external exam normal Extremity normal to inspection Skin Wounds: wounds noted Wound Narrative: Open wound right buttocks with tunneling x 2 and undermining some odor cultures were obtained Neuro oriented x3 Psych Appearance: grossly normal Speech: normal speech Thought Content: normal thought content Judgement: judgement good Debridement Note Debridement Note Wound debrided: Right buttocks abscess wound Laterality: Right Type of Debridement: Excisional debridement Anesthesia Used: 5% Lidocaine Gel Depth: to muscle Percentage of wound debrided: 100 Instrument Used: 7mm curette Tissue Removed: Fibrin Severity: Fat Layer Exposed Amount of bleeding with debridement: Mild Bleeding Controlled with: Compression and gauze Patient tolerated procedure: Patient tolerated procedure well Post-Debridement Measurements and Additional Note: Post-Debridement Measurements/Treatment WC - Nurse 1 - General Ulcer Assessment Start: 01/11/24 08:55 Freq: Status: Active Protocol: BRIELLE Activity Type Activity Date Activity User E-sign Co-sign Detail Recorded Client Recorded Date Recorded By Document 01/11/24 09[facility]04 [id number] 01/11/24 09:33 [place] 01/11/24 09:04 - Today's Visit Information Type of service Initial Visit Arrival Mode Ambulatory Accompanied by and daughter Patient Identification Verified (Name & Yes ) Safety Precautions Fall Prevention Vital Signs Temperature (97.8 F-99.1 F) 98 F Temperature Source Temporal Pulse Rate (60-100) 76 Pulse Location Monitor Respiratory Rate (12-18) 18 Respiratory rate source Observation Oxygen Delivery Method Room Air Blood Pressure (90/60-120/80) 135/72 H Blood Pressure Mean 93 Source Monitor Position Sitting Blood Pressure Location Right Arm History Since Last Visit- (Skip if this is Patient's initial visit) Has dressing in place as prescribed Yes Has compression in place as prescribed Yes Has offloadiing in place as prescribed Yes Experienced any changes in pain level or Yes management Left Footwear Regular Shoe Right Footwear Regular Shoe Pain Scale: 0-10 Numeric Is Patient Pain Free? Yes - Nurse 1 - General Ulcer Measurement Start: 01/11/24 08:55 Freq: Status: Active Protocol: Activity Type Activity Date Activity User E-sign Co-sign Detail Recorded Client Recorded Date Recorded By Document 01/11/24 09:04 [id number] 01/11/24 09:33 [place] 01/11/24 09:04 Wound Center Nurse 1 #1 R BUTTOCK -Current Size (cm) - Length 7.3 -Current Size (cm) - Width 3.3 -Current Size (cm) - Depth 5.0 -Total Square Cm 24.09 -Date of Last Picture (Recall this 01/11/24 field) -Photo Taken Yes -Tunneling Yes -Tunneling Position (O'clock) 12 -Tunneling Distance (cm) 8 -Tunneling Position #2 (O'clock) 2 -Tunneling Distance #2 (cm) 7.7 -Undermining/Tunneling Yes -Undermining/Tunneling Starts (O'clock 12 ) -Undermining/Tunneling Ends (O'clock) 12 -Circular Undermining Yes -Exudate Amt Medium -Exudate Type Serosanguineous -Wound Margin Thickened & Rolled Under -Granulation Amt Large (67-100%) -Granulation Quality Pale,Beatty -Necrosis Amt Medium (34-66%) -Necrotic Tissue Type Adherent Slough -Texture (Anne-wound Skin Appearance) Assessed -Moisture (Anne-wound Skin Appearance) Assessed -Color (Anne-wound Skin Appearance) Assessed -Temperature (Anne-wound Skin No Abnormality Appearance) (Pt Warm) -Tenderness on Palpation (Anne-wound No Skin Appearance) -Ulcer Cleansing Soap and Water -Foul Odor after Cleansing No -Anesthetic Used 4% Lidocaine Solution Lower Limb Edema Present NA WC - Nurse 2 - General Ulcer CM Notes Start: 01/11/24 08:55 Freq: Status: Active Protocol: Activity Type Activity Date Activity User E-sign Co-sign Detail Recorded Client Recorded Date Recorded By Document 01/11/24 09:43 [facility] [id number] 01/11/24 09:55 [facility] 01/11/24 09:43 Wound Center Nurse 2 #1 R BUTTOCK -Time 09:44 -Correct Patient Yes -Correct Side, Site, Position Yes -Correct Procedure Yes -Procedure Performed Yes -Type of Procedure Debridement -Clinical Debridement Muscle / Fascia -Tissue Removed Muscle -Post Debridement (cm) - Length 7.5 -Post Debridement (cm) - Width 2.7 -Post Debridement (cm) - Depth 3.8 -Total Square (Post) (cm) 20.25 -Area of Debridement (cm) - Length 7.5 -Area of Debridement (cm) - Width 2.7 -Total Square (Area) (cm) 20.25 -Tunneling Yes -Tunneling Position (O'clock) 2 -Tunneling Distance (cm) 7.5 -Tunneling Position #2 (O'clock) 1 -Tunneling Distance #2 (cm) 8.2 -Undermining/Tunneling No -Circular Undermining No -Wound/Ulcer Outcome Not Healed -Ulcer Cleansing Rinsed/ Irrigated with Saline -Foul Odor after Cleansing No -Bioengineered Tissue No -Bleeding Controlled with Pressure -Treatment Response Procedure Tolerated Well -Offloading Yes -Type of Offloading Other -Other Type of Offloading AIR MATTRESS, WHEELCHAIR CUSHION -Pressure Reduction Wheelchair cushion, Specialty bed -Debridement - Muscle / Fascia, 1st Yes 20sq cm -Debridement, Muscle/Fascia, ea addt'l 1 20sq cm or part thereof Pain Scale: 0-10 Numeric Is Patient Pain Free? Yes FILIBERTO - Nurse 3 - General Ulcer D/C NN Start: 01/11/24 08:55 Freq: Status: Active Protocol: Activity Type Activity Date Activity User E-sign Co-sign Detail Recorded Client Recorded Date Recorded By Document 01/11/24 10:16 [id number] 01/11/24 10:17 [place] 01/11/24 10:16 Wound Care Center Nurse 3 #1 R BUTTOCK -Other Dressing wet to dry with ABD -Primary Dressing Covered/Secured with Dry Gauze, Secured with Tape Pain Scale: 0-10 Numeric Is Patient Pain Free? Yes Assessment/Plan Assessment/Plan (1) Surgical wound, non healing: CODE(S): T81.89XA - Other complications of procedures, not elsewhere classified, initial encounter QUALIFIERS: Encounter type: initial encounter Qualified Code(s): T81.89XA - Other complications of procedures, not elsewhere classified, initial encounter PLAN: Wound VAC to right buttocks increase pressure to 150 mmHg Apply white foam to the tunneling areas q. weekly changes Cultures were obtained will call with results Follow-up in 1 week Patient is to continue eating well high-protein diet and Giuliano drinks. 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
--- NOTE | 2024-01-11 12:04 | WC ---
PHOTO 01/11/24
== END 2024-01-11 23:59 | disposition home or self-care (01) ==
LOC: WC 08:43
PROVIDERS: PCP Family Medicine; Referring Provider Family Medicine; Visit Provider Nurse Practitioner
DX: L02.31 Cutaneous abscess of buttock (principal); M06.9 Rheumatoid arthritis, unspecified; I50.9 Heart failure, unspecified; I11.0 Hypertensive heart disease with heart failure; I48.0 Paroxysmal atrial fibrillation; Z86.718 Personal history of other venous thrombosis and embolism; Z79.01 Long term (current) use of anticoagulants; Z79.899 Other long term (current) drug therapy; D68.51 Activated protein C resistance; N40.0 Benign prostatic hyperplasia without lower urinary tract symptoms
CPT/HCPCS: 11043; 11046; 87070; 87075; 87077; 87186; 87205; 99204; G0463

== ENCOUNTER 2024-02-08 10:30 | Outpatient (RCR) | payer MEDICARE, SELFPAY ==
[2024-01-12 00:28] VITALS: BP 135/72; PULSE 76; RESP 18; TEMP 36.6
[2024-01-18 10:28] VITALS: BP 149/79; PULSE 82; RESP 18; TEMP 36.4
--- NOTE | 2024-01-18 12:27 | PCM.WC.PN ---
History of Present Illness Date of Service: 01/18/24 Chief Complaint: Follow-up on right buttocks abscess that opened and is now tunneling. 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 Eventually got worse and was sent to [facility] for surgical debridement and cultures was treated there with PICC line and a wound VAC. He is currently on a wound VAC draining a lot of fluid slight odor but not anything real bad. Does have 2 tunneling areas. He does have history of A-fib and congestive heart failure and had a DVT in the past and is currently on Coumadin. Progress of Wound: Patient is on a wound VAC for his sacral wound which started as an abscess and had surgery and its positive deep with tunneling at 03-23. He is developing skin but in the base has been taking the wound VAC very well we applied for epi fix this and they have been approved but since with infection this week we will hold off for 1 more week. 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 states he will be discharged from the skilled nursing this Tuesday and we will reorder a wound VAC for him and hopefully they can leave him on the wound VAC till Tuesday and then we can change off and they can send it back to the skilled nursing. Otherwise we have set up packing to be done with [employer] wet to dry. Subjective Subjective They are pleased with the antibiotic therapy they are not pleased that he cannot start the EpiFix this week. And they are excited that he is going to be coming home on Tuesday. Objective Data Objective Data Measurements of the wound are slightly smaller than he is doing well you can see skin buds being developed in the base. Bleeds easily with debridement no odor noted positive cultures though so started him on doxycycline and metronidazole. Will start EpiFix next week. Vital Signs: Vital Signs Temp Pulse Resp BP 97.5 F L 82 18 149/79 H 01/18/24 10:28 01/18/24 10:28 01/18/24 10:28 01/18/24 10:28 Lab / Micro Data Attestation: I reviewed the patient's lab results. Physical Exam Const oriented x3 General Appearance: cooperative Exam Limitations: no limitations HEENT normocephalic Eyes General Eye: normal appearance of both eyes Neck General: normal visual inspection Resp normal respiratory effort Effort and Inspection: able to speak in complete sentences Cardio regular rate and regular rhythm GI Palpation: soft and no hepatosplenomegaly external exam normal Extremity normal to inspection Skin Wounds: wounds noted Wound Narrative: Open wound right buttocks with tunneling x 2 and undermining some odor cultures were obtained Neuro oriented x3 Psych Appearance: grossly normal Speech: normal speech Thought Content: normal thought content Judgement: judgement good Debridement Note Debridement Note Wound debrided: Right buttocks abscess wound Laterality: Right Type of Debridement: Excisional debridement Anesthesia Used: 5% Lidocaine Gel Depth: to muscle Percentage of wound debrided: 100 Instrument Used: 7mm curette Tissue Removed: Fibrin Severity: Fat Layer Exposed Amount of bleeding with debridement: Mild Bleeding Controlled with: Compression and gauze Patient tolerated procedure: Patient tolerated procedure well Post-Debridement Measurements and Additional Note: Post-Debridement Measurements/Treatment FILIBERTO - Nurse 1 - General Ulcer Assessment Start: 01/18/24 10:28 Freq: Status: Active Protocol: BRIELLE Activity Type Activity Date Activity User E-sign Co-sign Detail Recorded Client Recorded Date Recorded By Document 01/18/24 10:28 SYED woun 01/18/24 10:31 RB 01/18/24 10:28 - Today's Visit Information Type of service 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 ) Arrival Mode Ambulatory, Walker Transfer Assistance None Patient Identification Verified (Name & Yes ) Patient Requires Transmission-Based No Precautions Vital Signs Temperature (97.8 F-99.1 F) 97.5 F L Temperature Source Temporal Pulse Rate (60-100) 82 Pulse Location Monitor Respiratory Rate (12-18) 18 Respiratory rate source Observation Blood Pressure (90/60-120/80) 149/79 H Blood Pressure Mean (mm Hg) 102 Source Monitor Position Sitting Blood Pressure Location Left Arm History Since Last Visit- (Skip if this is Patient's initial visit) Have you changed medications since your No last visit? Any new allergies or adverse reactions No Had a fall/change in ADL's that may No increase risk of falls Signs or symptoms of abuse and/or No neglect since last visit Have you been in the hospital since your No last visit? Has dressing in place as prescribed Yes Has compression in place as prescribed No Has offloadiing in place as prescribed No Experienced any changes in pain level or No management Pain Scale: 0-10 Numeric Is Patient Pain Free? Yes WC - Nurse 1 - General Ulcer Measurement Start: 01/18/24 10:28 Freq: Status: Active Protocol: Activity Type Activity Date Activity User E-sign Co-sign Detail Recorded Client Recorded Date Recorded By Document 01/18/24 10:28 RB woun 01/18/24 10:31 RB 01/18/24 10:28 Wound Center Nurse 1 #1 R BUTTOCK -Combined with other wound No -Current Size (cm) - Length 6 -Current Size (cm) - Width 3.5 -Current Size (cm) - Depth 5.2 -Total Square Cm 21.0 -Tunneling No -Undermining/Tunneling Yes -Undermining/Tunneling Starts (O'clock 11 ) -Undermining/Tunneling Ends (O'clock) 2 -Maximum Distance (cm) 5.5 -Circular Undermining No -Exudate Amt Large -Exudate Type Serosanguineous -Wound Margin Thickened & Rolled Under -Granulation Amt Large (67-100%) -Granulation Quality [place] -Slough/Fibrin Yes -Necrosis Amt Medium (34-66%) -Necrotic Tissue Type Adherent Slough -Structure Exposed N/A -Texture (Anne-wound Skin Appearance) Assessed, Scarring -Moisture (Anne-wound Skin Appearance) Assessed -Color (Anne-wound Skin Appearance) Assessed -Temperature (Anne-wound Skin No Abnormality Appearance) (Pt Warm) -Tenderness on Palpation (Anne-wound No Skin Appearance) -Ulcer Cleansing Wound Cleanser -Foul Odor after Cleansing No -Anesthetic Used 4% Lidocaine Solution,5% Lidocaine Gel WC - Nurse 2 - General Ulcer CM Notes Start: 01/18/24 10:28 Freq: Status: Active Protocol: Activity Type Activity Date Activity User E-sign Co-sign Detail Recorded Client Recorded Date Recorded By Document 01/18/24 10:48 DS 1 01/18/24 10:50 DS 01/18/24 10:48 Wound Center Nurse 2 -Time 10:48 -Correct Patient Yes -Correct Side, Site, Position Yes -Correct Procedure Yes -Procedure Performed Yes -Type of Procedure Debridement -Clinical Debridement Muscle / Fascia -Tissue Removed Muscle,Fascia -Post Debridement (cm) - Length 6.3 -Post Debridement (cm) - Width 3.5 -Post Debridement (cm) - Depth 3.7 -Total Square (Post) (cm) 22.05 -Area of Debridement (cm) - Length 6.3 -Area of Debridement (cm) - Width 3.5 -Total Square (Area) (cm) 22.05 -Tunneling Yes -Tunneling Position (O'clock) 9 -Tunneling Distance (cm) 3.3 -Tunneling Position #2 (O'clock) 12 -Tunneling Distance #2 (cm) 6.0 -Circular Undermining No -Wound/Ulcer Outcome Not Healed -Ulcer Cleansing Rinsed/ Irrigated with Saline -Bleeding Controlled with Pressure -Treatment Response Procedure Tolerated Well -Debridement - Muscle / Fascia, 1st Yes 20sq cm -Debridement, Muscle/Fascia, ea addt'l 1 20sq cm or part thereof Pain Scale: 0-10 Numeric Is Patient Pain Free? Yes - Nurse 3 - General Ulcer D/C NN Start: 01/18/24 10:28 Freq: Status: Active Protocol: Activity Type Activity Date Activity User E-sign Co-sign Detail Recorded Client Recorded Date Recorded By Document 01/18/24 11:39 DL [id number] 01/18/24 11:39 DL 01/18/24 11:39 Wound Care Center Nurse 3 #1 R BUTTOCK -Ulcer Cleansing Soap and Water -Foul Odor after Cleansing No -Negative Pressure Wound Therapy Continue -Setting (mmHg) 150 -Negative Pressure is Continuous -NPWT Application Charge NPWT & Debridement (nc ) Treatment Response Procedure Tolerated Well Pain Scale: 0-10 Numeric Is Patient Pain Free? Yes - Visit Discharge Discharge Condition Stable Ambulatory Status Ambulatory, Walker Transportation Private Auto Facility Type [facility] Orders Sent Yes Assessment/Plan Assessment/Plan (1) Infected wound: CODE(S): T14.8XXA - Other injury of unspecified body region, initial encounter; L08.9 - Local infection of the skin and subcutaneous tissue, unspecified PLAN: Continue doxycycline and metronidazole (2) Surgical wound, non healing: CODE(S): T81.89XA - Other complications of procedures, not elsewhere classified, initial encounter QUALIFIERS: Encounter type: initial encounter Qualified Code(s): T81.89XA - Other complications of procedures, not elsewhere classified, initial encounter PLAN: Wound VAC to right buttocks increase pressure to 150 mmHg Apply white foam to the tunneling areas q. weekly changes Follow-up in 1 week Patient is to continue eating well high-protein diet and Giuliano drinks. 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
[2024-01-25 10:22] VITALS: BP 101/47; PULSE 63; RESP 16; TEMP 36.3
[2024-01-30 11:06] VITALS: BP 119/65; PULSE 67; RESP 18; TEMP 36.2
[2024-02-01 10:49] VITALS: BP 116/71; PULSE 63; RESP 18; TEMP 36.4
--- NOTE | 2024-02-01 13:02 | PCM.WC.PN ---
History of Present Illness Date of Service: 02/01/24 Chief Complaint: Follow-up on right buttocks abscess that opened and is now tunneling. 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 Eventually got worse and was sent to [facility] for surgical debridement and cultures was treated there with PICC line and a wound VAC. He is currently on a wound VAC draining a lot of fluid slight odor but not anything real bad. Does have 2 tunneling areas. He does have history of A-fib and congestive heart failure and had a DVT in the past and is currently on Coumadin. Progress of Wound: Patient is on a wound VAC for his sacral wound which started as an abscess and had surgery and its positive deep with tunneling at 03-23. He is developing skin but in the base has been taking the wound VAC very well we applied for epi fix this has been approved now that he is on antibiotics he can start the EpiFix so the infection is under control. Patient is tolerating his antibiotic therapy he has been discharged from the assisted and we will take over the wound VAC. Today we applied EpiFix #1 up towards the tunneling area. Subjective Subjective Family is very pleased with the outcomes so far and the measurements are smaller Objective Data Objective Data As stated above the measurements are shallower and smaller EpiFix #1 is applied to the wound base with the wound VAC on top we will follow-up in 1 week Vital Signs: Vital Signs Temp Pulse Resp BP O2 Del Method 97.6 F L 63 18 116/71 Room Air 02/01/24 10:49 02/01/24 10:49 02/01/24 10:49 02/01/24 10:49 01/30/24 11:06 Oxygen Delivery Method Room Air Lab / Micro Data Attestation: I reviewed the patient's lab results. Physical Exam Const oriented x3 General Appearance: cooperative Exam Limitations: no limitations HEENT normocephalic Eyes General Eye: normal appearance of both eyes Neck General: normal visual inspection Resp normal respiratory effort Effort and Inspection: able to speak in complete sentences Cardio regular rate and regular rhythm GI Palpation: soft and no hepatosplenomegaly external exam normal Extremity normal to inspection Skin Wounds: wounds noted Wound Narrative: Open wound right buttocks with tunneling x 2 and undermining some odor cultures were obtained Neuro oriented x3 Psych Appearance: grossly normal Speech: normal speech Thought Content: normal thought content Judgement: judgement good Debridement Note Debridement Note Wound debrided: Right buttocks abscess wound Laterality: Right Type of Debridement: Excisional debridement Anesthesia Used: 5% Lidocaine Gel Depth: to muscle Percentage of wound debrided: 100 Instrument Used: 7mm curette Tissue Removed: Fibrin Severity: Fat Layer Exposed Amount of bleeding with debridement: Mild Bleeding Controlled with: Compression and gauze Patient tolerated procedure: Patient tolerated procedure well Post-Debridement Measurements and Additional Note: Post-Debridement Measurements/Treatment - Nurse 1 - General Ulcer Assessment Start: 01/18/24 10:28 Freq: Status: Active Protocol: BRIELLE Activity Type Activity Date Activity User E-sign Co-sign Detail Recorded Client Recorded Date Recorded By Document 01/18/24 10:28 RB woun 01/18/24 10:31 RB Document 01/25/24 10:22 CP 01/25/24 10:31 CP Document 01/30/24 11:06 KW [id number] 01/30/24 11:49 KW Document 02/01/24 10:49 DL [id number] 02/01/24 10:57 DL 01/18/24 01/25/24 01/30/24 10:28 10:22 11:06 - Today's Visit Information Type of service Follow-up Visit Nurse-only Nurse-only (Physician/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 HELPER Visit Visit ) Arrival Mode Ambulatory, Ambulatory Ambulatory, Walker Walker Transfer Assistance None Accompanied by Patient Identification Verified (Name & Yes Yes Yes ) Patient Requires Transmission-Based No Precautions Vital Signs Temperature (97.8 F-99.1 F) 97.5 F L 97.4 F L 97.1 F L Temperature Source Temporal Temporal Temporal Pulse Rate (60-100) 82 63 67 Pulse Location Monitor Monitor Monitor Respiratory Rate (12-18) 18 16 18 Respiratory rate source Observation Observation Monitor Oxygen Delivery Method Room Air Blood Pressure (90/60-120/80) 149/79 H 101/47 L 119/65 Blood Pressure Mean (mm Hg) 102 65 83 Source Monitor Monitor Monitor Position Sitting Left Lateral Sitting Blood Pressure Location Left Arm Right Arm Left Arm History Since Last Visit- (Skip if this is Patient's initial visit) Have you changed medications since your No No No last visit? Any new allergies or adverse reactions No No No Had a fall/change in ADL's that may No No No increase risk of falls Signs or symptoms of abuse and/or No No No neglect since last visit Have you been in the hospital since your No No No last visit? Has dressing in place as prescribed Yes Yes Yes Has compression in place as prescribed No N/A N/A Has offloadiing in place as prescribed No N/A N/A Experienced any changes in pain level or No No No management Left Footwear Regular Shoe Right Footwear Regular Shoe Pain Scale: 0-10 Numeric Is Patient Pain Free? 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 ) Arrival Mode Ambulatory, Walker Transfer Assistance None Accompanied by Patient Identification Verified (Name & Yes ) Patient Requires Transmission-Based No Precautions Vital Signs Temperature (97.8 F-99.1 F) 97.6 F L Temperature Source Temporal Pulse Rate (60-100) 63 Pulse Location Monitor Respiratory Rate (12-18) 18 Respiratory rate source Observation Oxygen Delivery Method Blood Pressure (90/60-120/80) 116/71 Blood Pressure Mean (mm Hg) 86 Source Monitor Position Blood Pressure Location History Since Last Visit- (Skip if this is Patient's initial visit) Have you changed medications since your No last visit? Any new allergies or adverse reactions No Had a fall/change in ADL's that may No increase risk of falls Signs or symptoms of abuse and/or No neglect since last visit Have you been in the hospital since your No last visit? Has dressing in place as prescribed Yes Has compression in place as prescribed N/A Has offloadiing in place as prescribed Yes Experienced any changes in pain level or No management Left Footwear Right Footwear Pain Scale: 0-10 Numeric Is Patient Pain Free? Yes - Nurse 1 - General Ulcer Measurement Start: 01/18/24 10:28 Freq: Status: Active Protocol: Activity Type Activity Date Activity User E-sign Co-sign Detail Recorded Client Recorded Date Recorded By Document 01/18/24 10:28 RB woun 01/18/24 10:31 RB Document 01/25/24 10:22 CP 01/25/24 10:31 CP Document 02/01/24 10:49 DL [id number] 02/01/24 10:57 DL 01/18/24 01/25/24 02/01/24 10:28 10:22 10:49 Wound Center Nurse 1 #1 R BUTTOCK -Combined with other wound No -Current Size (cm) - Length 6 5 -Current Size (cm) - Width 3.5 2.8 -Current Size (cm) - Depth 5.2 3.8 -Total Square Cm 21.0 14.0 -Photo Taken Yes -Tunneling No -Undermining/Tunneling Yes -Undermining/Tunneling Starts (O'clock 11 10 ) -Undermining/Tunneling Ends (O'clock) 2 2 -Maximum Distance (cm) 5.5 5.5 -Circular Undermining No -Exudate Amt Large Medium Medium -Exudate Type Serosanguineous Serosanguineous Serosanguineous -Wound Margin Thickened & Flat & Intact Distinct, Rolled Under Outline Attached -Granulation Amt Large (67-100%) Large (67-100%) Medium (34-66%) -Granulation Quality [place] -Slough/Fibrin Yes Yes -Necrosis Amt Medium (34-66%) Small (1-33%) Medium (34-66%) -Necrotic Tissue Type Adherent Slough Adherent Slough Adherent Slough -Structure Exposed N/A N/A -Texture (Anne-wound Skin Appearance) Assessed, No Abnormality Scarring Scarring -Moisture (Anne-wound Skin Appearance) Assessed No Abnormality No Abnormality -Color (Anne-wound Skin Appearance) Assessed No Abnormality No Abnormality -Temperature (Anne-wound Skin No Abnormality No Abnormality No Abnormality Appearance) (Pt Warm) (Pt Warm) (Pt Warm) -Tenderness on Palpation (Anne-wound No No Skin Appearance) -Ulcer Cleansing Wound Cleanser Soap and Water Soap and Water -Foul Odor after Cleansing No No No -Anesthetic Used 4% Lidocaine 4% Lidocaine Solution,5% Solution Lidocaine Gel WC - Nurse 2 - General Ulcer CM Notes Start: 01/18/24 10:28 Freq: Status: Active Protocol: Activity Type Activity Date Activity User E-sign Co-sign Detail Recorded Client Recorded Date Recorded By Document 01/18/24 10:48 DS 1 01/18/24 10:50 DS Document 02/01/24 11:12 [facility] [id number] 02/01/24 11:24 [facility] 01/18/24 02/01/24 10:48 11:12 Wound Center Nurse 2 #1 R BUTTOCK -Time 10:48 11:12 -Correct Patient Yes Yes -Correct Side, Site, Position Yes Yes -Correct Procedure Yes Yes -Procedure Performed Yes Yes -Type of Procedure Debridement Debridement -Clinical Debridement Muscle / Fascia Muscle / Fascia -Tissue Removed Muscle,Fascia Muscle -Post Debridement (cm) - Length 6.3 5 -Post Debridement (cm) - Width 3.5 3 -Post Debridement (cm) - Depth 3.7 3 -Total Square (Post) (cm) 22.05 15 -Area of Debridement (cm) - Length 6.3 5 -Area of Debridement (cm) - Width 3.5 3 -Total Square (Area) (cm) 22.05 15 -Tunneling Yes Yes -Tunneling Position (O'clock) 9 11 -Tunneling Distance (cm) 3.3 5.1 -Tunneling Position #2 (O'clock) 12 -Tunneling Distance #2 (cm) 6.0 -Undermining/Tunneling Yes -Undermining/Tunneling Starts (O'clock 9 ) -Undermining/Tunneling Ends (O'clock) 10 -Maximum Distance (cm) 3.2 -Circular Undermining No No -Wound/Ulcer Outcome Not Healed Not Healed -Ulcer Cleansing Rinsed/ Rinsed/ Irrigated with Irrigated with Saline Saline -Foul Odor after Cleansing No -Bioengineered Tissue No -Type of Bioengineered Tissue Epifix Mesh -Expiration Date 07/14/28 -Product Lot Number [id number] -Percent Used 100 -Lot number of Saline Used [id number] -Bleeding Controlled with Pressure Pressure -Treatment Response Procedure Procedure Tolerated Well Tolerated Well -Debridement - Muscle / Fascia, 1st Yes No 20sq cm -Debridement, Muscle/Fascia, ea addt'l 1 20sq cm or part thereof -Epifix Mesh (per sq cm) 11 Pain Scale: 0-10 Numeric Is Patient Pain Free? Yes Yes WC - Nurse 3 - General Ulcer D/C NN Start: 01/18/24 10:28 Freq: Status: Active Protocol: Activity Type Activity Date Activity User E-sign Co-sign Detail Recorded Client Recorded Date Recorded By Document 01/18/24 11:39 DL 10..25.7 01/18/24 11:39 DL Document 01/25/24 10:22 CP 01/25/24 10:31 CP Document 01/30/24 11:06 KW [id number] 01/30/24 11:49 KW Document 02/01/24 11:41 DL [id number] 02/01/24 11:43 DL 01/18/24 01/25/24 01/30/24 11:39 10:22 11:06 Wound Care Center Nurse 3 #1 R BUTTOCK -Ulcer Cleansing Soap and Water Soap and Water -Foul Odor after Cleansing No -Negative Pressure Wound Therapy Continue Continue Continue -Setting (mmHg) 150 150 150 -Negative Pressure is Continuous Continuous Continuous -NPWT Application Charge NPWT & NPWT </= 50 sq NPWT > 50 sq cm Debridement (nc cm ($) ($) ) -Wound Comment(s) Treatment Response Procedure Procedure Tolerated Well Tolerated Well Vital Signs Temperature (97.8 F-99.1 F) 97.4 F L 97.1 F L Temperature Source Temporal Temporal Pulse Rate (60-100) 63 67 Pulse Location Monitor Monitor Respiratory Rate (12-18) 16 18 Respiratory rate source Observation Monitor Oxygen Delivery Method Room Air Blood Pressure (90/60-120/80) 101/47 L 119/65 Blood Pressure Mean (mm Hg) 65 83 Source Monitor Monitor Position Left Lateral Sitting Blood Pressure Location Right Arm Left Arm Pain Scale: 0-10 Numeric Is Patient Pain Free? Yes Yes Yes WC - Visit Discharge Discharge Condition Stable Stable Stable Ambulatory Status Ambulatory, Ambulatory, Ambulatory, Walker Walker Walker Transportation Private Auto Private Auto Private Auto Medication Reconcilliation completed & No provided to patient/care provider Clinical Summary of Care Provided Yes Facility Type Longterm Care Facility Orders Sent Yes 02/01/24 11:41 Wound Care Center Nurse 3 #1 R BUTTOCK -Ulcer Cleansing Rinsed/ Irrigated with Saline -Foul Odor after Cleansing No -Negative Pressure Wound Therapy Continue -Setting (mmHg) 125 -Negative Pressure is Continuous -NPWT Application Charge NPWT & Debridement (nc ) -Wound Comment(s) Dressing appiled per Minh Gimenez RN today. Treatment Response Procedure Tolerated Well Vital Signs Temperature (97.8 F-99.1 F) Temperature Source Pulse Rate (60-100) Pulse Location Respiratory Rate (12-18) Respiratory rate source Oxygen Delivery Method Blood Pressure (90/60-120/80) Blood Pressure Mean (mm Hg) Source Position Blood Pressure Location Pain Scale: 0-10 Numeric Is Patient Pain Free? Yes WC - Visit Discharge Discharge Condition Stable Ambulatory Status Ambulatory, Walker Transportation Private Auto Medication Reconcilliation completed & provided to patient/care provider Clinical Summary of Care Provided Facility Type Home Health Orders Sent Yes Assessment/Plan Assessment/Plan (1) Infected wound: CODE(S): T14.8XXA - Other injury of unspecified body region, initial encounter; L08.9 - Local infection of the skin and subcutaneous tissue, unspecified PLAN: Continue doxycycline and metronidazole (2) Surgical wound, non healing: CODE(S): T81.89XA - Other complications of procedures, not elsewhere classified, initial encounter QUALIFIERS: Encounter type: initial encounter Qualified Code(s): T81.89XA - Other complications of procedures, not elsewhere classified, initial encounter PLAN: EpiFix #1 applied to wound base and covered with a veil Wound VAC to right buttocks decrease pressure to 125 mmHg Use only the black foam Follow-up in 1 week Patient is to continue eating well high-protein diet and Giuliano drinks. 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
--- NOTE | 2024-02-02 13:44 | WC ---
PHOTO 02/01/24 DEMETRIUS
[2024-02-08 10:40] VITALS: BP 112/65; PULSE 63; RESP 20; TEMP 36.1
--- NOTE | 2024-02-08 12:36 | PN.PCM_ITS ---
History of Present Illness Date of Service: 02/08/24 Chief Complaint: Follow-up on right buttocks abscess that opened and is now tunneling. 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 Eventually got worse and was sent to [facility] for surgical debridement and cultures was treated there with PICC line and a wound VAC. He is currently on a wound VAC draining a lot of fluid slight odor but not anything real bad. Does have 2 tunneling areas. He does have history of A-fib and congestive heart failure and had a DVT in the past and is currently on Coumadin. Progress of Wound: Patient is on a wound VAC for his sacral wound which started as an abscess and had surgery and its positive deep with tunneling at -11. He is developing skin but in the base and just had epi #1 last week and we will apply epi #2 this week. Patient is done with his antibiotic therapy and is doing well with food intake and nutritional intake. Measurements are smaller still has a tunneling going on we will try to get more white foam up in that area with black foam and the rest Subjective Subjective Family is very pleased with the outcome so far and the wound VAC Objective Data Objective Data As stated above measurements are better no sign of infection he is done with his antibiotic therapy at this time wound VAC is at 125 mmHg and we are using epi fi x in the base to promote healing Vital Signs: Vital Signs Temp Pulse Resp BP O2 Del Method 97 F L 63 20 H 112/65 Room Air 02/08/24 10:40 02/08/24 10:40 02/08/24 10:40 02/08/24 10:40 01/30/24 11:06 Oxygen Delivery Method Room Air Physical Exam Const oriented x3 General Appearance: cooperative Exam Limitations: no limitations HEENT normocephalic Eyes General Eye: normal appearance of both eyes Neck General: normal visual inspection Resp normal respiratory effort Effort and Inspection: able to speak in complete sentences Cardio regular rate and regular rhythm GI Palpation: soft and no hepatosplenomegaly external exam normal Extremity normal to inspection Skin Wounds: wounds noted Wound Narrative: Open wound right buttocks with tunneling x 2 and undermining some odor cultures were obtained Neuro oriented x3 Psych Appearance: grossly normal Speech: normal speech Thought Content: normal thought content Judgement: judgement good Debridement Note Debridement Note Wound debrided: Right buttocks abscess wound Laterality: Right Type of Debridement: Excisional debridement Anesthesia Used: 5% Lidocaine Gel Depth: to muscle Percentage of wound debrided: 100 Instrument Used: 7mm curette Tissue Removed: Fibrin Severity: Fat Layer Exposed Amount of bleeding with debridement: Mild Bleeding Controlled with: Compression and gauze Patient tolerated procedure: Patient tolerated procedure well Post-Debridement Measurements and Additional Note: Post-Debridement Measurements/Treatment - Nurse 1 - General Ulcer Assessment Start: 01/18/24 10:28 Freq: Status: Active Protocol: Click SecuritySHARON Activity Type Activity Date Activity User E-sign Co-sign Detail Recorded Client Recorded Date Recorded By Document 01/18/24 10:28 RB woun 01/18/24 10:31 RB Document 01/25/24 10:22 CP 01/25/24 10:31 CP Document 01/30/24 11:06 KW [id number] 01/30/24 11:49 KW Document 02/01/24 10:49 DL [id number] 02/01/24 10:57 DL Document 02/08/24 10:40 DL [id number] 02/08/24 10:47 DL 01/18/24 01/25/24 01/30/24 10:28 10:22 11:06 [facility] Today's Visit Information Type of service Follow-up Visit Nurse-only Nurse-only (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 Visit Visit ) Arrival Mode Ambulatory, Ambulatory Ambulatory, Walker Walker Transfer Assistance None Accompanied by Patient Identification Verified (Name & Yes Yes Yes ) Patient Requires Transmission-Based No Precautions Vital Signs Temperature (97.8 F-99.1 F) 97.5 F L 97.4 F L 97.1 F L Temperature Source Temporal Temporal Temporal Pulse Rate (60-100) 82 63 67 Pulse Location Monitor Monitor Monitor Respiratory Rate (12-18) 18 16 18 Respiratory rate source Observation Observation Monitor Oxygen Delivery Method Room Air Blood Pressure (90/60-120/80) 149/79 H 101/47 L 119/65 Blood Pressure Mean (mm Hg) 102 65 83 Source Monitor Monitor Monitor Position Sitting Left Lateral Sitting Blood Pressure Location Left Arm Right Arm Left Arm History Since Last Visit- (Skip if this is Patient's initial visit) Have you changed medications since your No No No last visit? Any new allergies or adverse reactions No No No Had a fall/change in ADL's that may No No No increase risk of falls Signs or symptoms of abuse and/or No No No neglect since last visit Have you been in the hospital since your No No No last visit? Has dressing in place as prescribed Yes Yes Yes Has compression in place as prescribed No N/A N/A Has offloadiing in place as prescribed No N/A N/A Experienced any changes in pain level or No No No management Left Footwear Regular Shoe Right Footwear Regular Shoe Pain Scale: 0-10 Numeric Is Patient Pain Free? Yes Yes Yes 02/01/24 02/08/24 10:49 10:40 WC - Today's Visit Information Type of service Follow-up Visit Follow-up Visit (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 (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 ) ) Arrival Mode Ambulatory, Ambulatory Walker Transfer Assistance None None Accompanied by Patient Identification Verified (Name & Yes Yes ) Patient Requires Transmission-Based No No Precautions Vital Signs Temperature (97.8 F-99.1 F) 97.6 F L 97 F L Temperature Source Temporal Temporal Pulse Rate (60-100) 63 63 Pulse Location Monitor Monitor Respiratory Rate (12-18) 18 20 H Respiratory rate source Observation Observation Oxygen Delivery Method Blood Pressure (90/60-120/80) 116/71 112/65 Blood Pressure Mean (mm Hg) 86 80 Source Monitor Monitor Position Blood Pressure Location History Since Last Visit- (Skip if this is Patient's initial visit) Have you changed medications since your No No last visit? Any new allergies or adverse reactions No No Had a fall/change in ADL's that may No No increase risk of falls Signs or symptoms of abuse and/or No No neglect since last visit Have you been in the hospital since your No No last visit? Has dressing in place as prescribed Yes Yes Has compression in place as prescribed N/A N/A Has offloadiing in place as prescribed Yes Yes Experienced any changes in pain level or No No management Left Footwear Right Footwear Pain Scale: 0-10 Numeric Is Patient Pain Free? Yes Yes FILIBERTO - Nurse 1 - General Ulcer Measurement Start: 01/18/24 10:28 Freq: Status: Active Protocol: Activity Type Activity Date Activity User E-sign Co-sign Detail Recorded Client Recorded Date Recorded By Document 01/18/24 10:28 RB woun 01/18/24 10:31 RB Document 01/25/24 10:22 CP 01/25/24 10:31 CP Document 02/01/24 10:49 DL [id number] 02/01/24 10:57 DL Document 02/08/24 10:40 DL [id number] 02/08/24 10:47 DL 01/18/24 01/25/24 02/01/24 10:28 10:22 10:49 Wound Center Nurse 1 #1 R BUTTOCK -Combined with other wound No -Current Size (cm) - Length 6 5 -Current Size (cm) - Width 3.5 2.8 -Current Size (cm) - Depth 5.2 3.8 -Total Square Cm 21.0 14.0 -Photo Taken Yes -Tunneling No -Undermining/Tunneling Yes -Undermining/Tunneling Starts (O'clock 11 10 ) -Undermining/Tunneling Ends (O'clock) 2 2 -Maximum Distance (cm) 5.5 5.5 -Circular Undermining No -Exudate Amt Large Medium Medium -Exudate Type Serosanguineous Serosanguineous Serosanguineous -Wound Margin Thickened & Flat & Intact Distinct, Rolled Under Outline Attached -Granulation Amt Large (67-100%) Large (67-100%) Medium (34-66%) -Granulation Quality [place] Red -Slough/Fibrin Yes Yes -Necrosis Amt Medium (34-66%) Small (1-33%) Medium (34-66%) -Necrotic Tissue Type Adherent Slough Adherent Slough Adherent Slough -Structure Exposed N/A N/A -Texture (Anne-wound Skin Appearance) Assessed, No Abnormality Scarring Scarring -Moisture (Anne-wound Skin Appearance) Assessed No Abnormality No Abnormality -Color (Anne-wound Skin Appearance) Assessed No Abnormality No Abnormality -Temperature (Anne-wound Skin No Abnormality No Abnormality No Abnormality Appearance) (Pt Warm) (Pt Warm) (Pt Warm) -Tenderness on Palpation (Anne-wound No No Skin Appearance) -Ulcer Cleansing Wound Cleanser Soap and Water Soap and Water -Foul Odor after Cleansing No No No -Anesthetic Used 4% Lidocaine 4% Lidocaine Solution,5% Solution Lidocaine Gel 02/08/24 10:40 Wound Center Nurse 1 #1 R BUTTOCK -Combined with other wound -Current Size (cm) - Length 4.2 -Current Size (cm) - Width 2 -Current Size (cm) - Depth 4 -Total Square Cm 8.4 -Photo Taken Yes -Tunneling -Undermining/Tunneling -Undermining/Tunneling Starts (O'clock ) -Undermining/Tunneling Ends (O'clock) -Maximum Distance (cm) -Circular Undermining -Exudate Amt Medium -Exudate Type Serosanguineous -Wound Margin Thickened & Rolled Under -Granulation Amt Large (67-100%) -Granulation Quality Red -Slough/Fibrin -Necrosis Amt Small (1-33%) -Necrotic Tissue Type Adherent Slough -Structure Exposed N/A -Texture (Anne-wound Skin Appearance) Scarring -Moisture (Anne-wound Skin Appearance) Maceration -Color (Anne-wound Skin Appearance) No Abnormality -Temperature (Anne-wound Skin No Abnormality Appearance) (Pt Warm) -Tenderness on Palpation (Anne-wound Skin Appearance) -Ulcer Cleansing Soap and Water -Foul Odor after Cleansing No -Anesthetic Used 4% Lidocaine Solution WC - Nurse 2 - General Ulcer CM Notes Start: 01/18/24 10:28 Freq: Status: Active Protocol: Activity Type Activity Date Activity User E-sign Co-sign Detail Recorded Client Recorded Date Recorded By Document 01/18/24 10:48 DS 1 01/18/24 10:50 DS Document 02/01/24 11:12 [facility] [id number] 02/01/24 11:24 [facility] Document 02/08/24 11:07 [facility] [id number] 02/08/24 11:15 [facility] 01/18/24 02/01/24 02/08/24 10:48 11:12 11:07 Wound Center Nurse 2 #1 R BUTTOCK -Time 10:48 11:12 11:08 -Correct Patient Yes Yes Yes -Correct Side, Site, Position Yes Yes Yes -Correct Procedure Yes Yes Yes -Procedure Performed Yes Yes Yes -Type of Procedure Debridement Debridement Debridement -Clinical Debridement Muscle / Fascia Muscle / Fascia Muscle / Fascia -Tissue Removed Muscle,Fascia Muscle Muscle -Post Debridement (cm) - Length 6.3 5 4.7 -Post Debridement (cm) - Width 3.5 3 2.5 -Post Debridement (cm) - Depth 3.7 3 2.7 -Total Square (Post) (cm) 22.05 15 11.75 -Area of Debridement (cm) - Length 6.3 5 -Area of Debridement (cm) - Width 3.5 3 -Total Square (Area) (cm) 22.05 15 -Tunneling Yes Yes Yes -Tunneling Position (O'clock) 9 11 1 -Tunneling Distance (cm) 3.3 5.1 6.0 -Tunneling Position #2 (O'clock) 12 -Tunneling Distance #2 (cm) 6.0 -Undermining/Tunneling Yes -Undermining/Tunneling Starts (O'clock 9 ) -Undermining/Tunneling Ends (O'clock) 10 -Maximum Distance (cm) 3.2 -Circular Undermining No No No -Wound/Ulcer Outcome Not Healed Not Healed Not Healed -Ulcer Cleansing Rinsed/ Rinsed/ Rinsed/ Irrigated with Irrigated with Irrigated with Saline Saline Saline -Foul Odor after Cleansing No No -Bioengineered Tissue No No -Type of Bioengineered Tissue Epifix Mesh Epifix Mesh -Expiration Date 07/14/28 07/14/28 -Product Lot Number [id number] -Percent Used 100 100 -Lot number of Saline Used [id number] -Bleeding Controlled with Pressure Pressure Pressure -Treatment Response Procedure Procedure Procedure Tolerated Well Tolerated Well Tolerated Well -Debridement - Muscle / Fascia, 1st Yes No No 20sq cm -Debridement, Muscle/Fascia, ea addt'l 1 20sq cm or part thereof -Apply Skin Sub - 1st 25 sq cm - Legs 1 -Epifix Mesh (per sq cm) 11 11 Pain Scale: 0-10 Numeric Is Patient Pain Free? Yes Yes Yes WC - Nurse 3 - General Ulcer D/C NN Start: 01/18/24 10:28 Freq: Status: Active Protocol: Activity Type Activity Date Activity User E-sign Co-sign Detail Recorded Client Recorded Date Recorded By Document 01/18/24 11:39 DL [id number] 01/18/24 11:39 DL Document 01/25/24 10:22 CP 01/25/24 10:31 CP Edit Result 01/25/24 10:22 CP (1) [id number] 02/01/24 15:43 CP Document 01/30/24 11:06 KW [id number] 01/30/24 11:49 KW Document 02/01/24 11:41 DL [id number] 02/01/24 11:43 DL (1) #1 R BUTTOCK - NPWT Application Charge NPWT </= 50 sq cm => NPWT > 50 sq cm ($ ($) => ) 01/18/24 01/25/24 01/30/24 11:39 10:22 11:06 Wound Care Center Nurse 3 #1 R BUTTOCK -Ulcer Cleansing Soap and Water Soap and Water -Foul Odor after Cleansing No -Negative Pressure Wound Therapy Continue Continue Continue -Setting (mmHg) 150 150 150 -Negative Pressure is Continuous Continuous Continuous -NPWT Application Charge NPWT & NPWT > 50 sq cm NPWT > 50 sq cm Debridement (nc ($) ($) ) -Wound Comment(s) Treatment Response Procedure Procedure Tolerated Well Tolerated Well Vital Signs Temperature (97.8 F-99.1 F) 97.4 F L 97.1 F L Temperature Source Temporal Temporal Pulse Rate (60-100) 63 67 Pulse Location Monitor Monitor Respiratory Rate (12-18) 16 18 Respiratory rate source Observation Monitor Oxygen Delivery Method Room Air Blood Pressure (90/60-120/80) 101/47 L 119/65 Blood Pressure Mean (mm Hg) 65 83 Source Monitor Monitor Position Left Lateral Sitting Blood Pressure Location Right Arm Left Arm Pain Scale: 0-10 Numeric Is Patient Pain Free? Yes Yes Yes WC - Visit Discharge Discharge Condition Stable Stable Stable Ambulatory Status Ambulatory, Ambulatory, Ambulatory, Walker Walker Walker Transportation Private Auto Private Auto Private Auto Medication Reconcilliation completed & No provided to patient/care provider Clinical Summary of Care Provided Yes Facility Type [facility] Orders Sent Yes 02/01/24 11:41 Wound Care Center Nurse 3 #1 R BUTTOCK -Ulcer Cleansing Rinsed/ Irrigated with Saline -Foul Odor after Cleansing No -Negative Pressure Wound Therapy Continue -Setting (mmHg) 125 -Negative Pressure is Continuous -NPWT Application Charge NPWT & Debridement (nc ) -Wound Comment(s) Dressing appiled per Minh Gimenez RN today. Treatment Response Procedure Tolerated Well Vital Signs Temperature (97.8 F-99.1 F) Temperature Source Pulse Rate (60-100) Pulse Location Respiratory Rate (12-18) Respiratory rate source Oxygen Delivery Method Blood Pressure (90/60-120/80) Blood Pressure Mean (mm Hg) Source Position Blood Pressure Location Pain Scale: 0-10 Numeric Is Patient Pain Free? Yes WC - Visit Discharge Discharge Condition Stable Ambulatory Status Ambulatory, Walker Transportation Private Auto Medication Reconcilliation completed & provided to patient/care provider Clinical Summary of Care Provided Facility Type Home Health Orders Sent Yes Assessment/Plan Assessment/Plan (1) Infected wound: CODE(S): T14.8XXA - Other injury of unspecified body region, initial encounter; L08.9 - Local infection of the skin and subcutaneous tissue, unspecified (2) Surgical wound, non healing: CODE(S): T81.89XA - Other complications of procedures, not elsewhere classified, initial encounter QUALIFIERS: Encounter type: initial encounter Qualified Code(s): T81.89XA - Other complications of procedures, not elsewhere classified, initial encounter PLAN: EpiFix #2 applied to wound base and covered with a veil Wound VAC to right buttocks decrease pressure to 125 mmHg Use only the black foam base and white foam in the tunneling Follow-up in 1 week Patient is to continue eating well high-protein diet and Giuliano drinks. 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
--- NOTE | 2024-02-09 09:13 | WC ---
PHOTO 02/08/24 DEMETRIUS
== END 2024-02-11 23:59 | disposition home or self-care (01) ==
LOC: WC 10:30
PROVIDERS: PCP Family Medicine; Referring Provider Family Medicine; Visit Provider Nurse Practitioner
DX: T81.89XA Other complications of procedures, not elsewhere classified, initial encounter (principal); I48.91 Unspecified atrial fibrillation; L02.31 Cutaneous abscess of buttock; B95.62 Methicillin resistant Staphylococcus aureus infection as the cause of diseases classified elsewhere; Z86.718 Personal history of other venous thrombosis and embolism; T14.8XXA Other injury of unspecified body region, initial encounter; Z79.01 Long term (current) use of anticoagulants
CPT/HCPCS: 11043; 11046; 15271; 97605; 97606; 99212; Q4186; G0463

== ENCOUNTER 2024-03-07 10:30 | Outpatient (RCR) | payer MEDICARE, SELFPAY ==
[2024-02-12 00:20] VITALS: BP 135/72; PULSE 76; RESP 18; TEMP 36.6
[2024-02-15 10:51] VITALS: BP 107/64; PULSE 71; RESP 18; TEMP 36.3
--- NOTE | 2024-02-15 12:50 | PN.PCM_ITS ---
History of Present Illness Date of Service: 02/15/24 Chief Complaint: Follow-up on right buttocks abscess that opened and is now tunneling. 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 Eventually got worse and was sent to [facility] for surgical debridement and cultures was treated there with PICC line and a wound VAC. He is currently on a wound VAC draining a lot of fluid slight odor but not anything real bad. Does have 2 tunneling areas. He does have history of A-fib and congestive heart failure and had a DVT in the past and is currently on Coumadin. Progress of Wound: The tunneling is improving by half a centimeter. Patient is tolerant to the wound VAC doing very well. We are getting the weight up into the tunneling and the black foam in the base cultures were obtained today just to make sure that everything is good we had applied for EpiFix and he was to receive another epi fix in the wound base which is helping produce more cells. All measurements are smaller. The base of the wound looks beefy and you can see new cells developing Subjective Subjective Family is very pleased with outcomes Objective Data Objective Data As stated above we will culture the wound just to keep up on it because it has been a while since his last culture. Patient is tolerating the wound VAC very well at 125 mmHg he has had no issues with it. We will continue using EpiFix in the wound base with the foam over top, Until healed. Vital Signs: Vital Signs Temp Pulse Resp BP 97.4 F L 71 18 107/64 02/15/24 10:51 02/15/24 10:51 02/15/24 10:51 02/15/24 10:51 Lab / Micro Data Attestation: I reviewed the patient's lab results. Physical Exam Const oriented x3 General Appearance: cooperative Exam Limitations: no limitations HEENT normocephalic Eyes General Eye: normal appearance of both eyes Neck General: normal visual inspection Resp normal respiratory effort Effort and Inspection: able to speak in complete sentences Cardio regular rate and regular rhythm GI Palpation: soft and no hepatosplenomegaly external exam normal Extremity normal to inspection Skin Wounds: wounds noted Wound Narrative: Open wound right buttocks with tunneling x 2 and undermining some odor cultures were obtained Neuro oriented x3 Psych Appearance: grossly normal Speech: normal speech Thought Content: normal thought content Judgement: judgement good Debridement Note Debridement Note Wound debrided: Right buttocks abscess wound Laterality: Right Type of Debridement: Excisional debridement Anesthesia Used: 5% Lidocaine Gel Depth: to muscle Percentage of wound debrided: 100 Instrument Used: 7mm curette Tissue Removed: Fibrin Severity: Fat Layer Exposed Amount of bleeding with debridement: Mild Bleeding Controlled with: Compression and gauze Patient tolerated procedure: Patient tolerated procedure well Post-Debridement Measurements and Additional Note: Post-Debridement Measurements/Treatment WC - Nurse 1 - General Ulcer Assessment Start: 02/15/24 10:51 Freq: Status: Active Protocol: BRIELLE Activity Type Activity Date Activity User E-sign Co-sign Detail Recorded Client Recorded Date Recorded By Document 02/15/24 10:51 SACHA [id number] 02/15/24 11:01 DL 02/15/24 10:51 WC - Today's Visit Information Type of service Follow-up Visit (Physician/CARD CUTTER ) Arrival Mode Ambulatory, Walker Transfer Assistance Stretcher Patient Identification Verified (Name & Yes ) Patient Requires Transmission-Based No Precautions Vital Signs Temperature (97.8 F-99.1 F) 97.4 F L Temperature Source Temporal Pulse Rate (60-100) 71 Pulse Location Monitor Respiratory Rate (12-18) 18 Respiratory rate source Observation Blood Pressure (90/60-120/80) 107/64 Blood Pressure Mean (mm Hg) 78 Source Monitor History Since Last Visit- (Skip if this is Patient's initial visit) Have you changed medications since your No last visit? Any new allergies or adverse reactions No Had a fall/change in ADL's that may No increase risk of falls Signs or symptoms of abuse and/or No neglect since last visit Have you been in the hospital since your No last visit? Has dressing in place as prescribed Yes Has compression in place as prescribed N/A Has offloadiing in place as prescribed Yes Experienced any changes in pain level or No management Pain Scale: 0-10 Numeric Is Patient Pain Free? Yes FILIBERTO Romero Nurse 1 - General Ulcer Measurement Start: 02/15/24 10:51 Freq: Status: Active Protocol: Activity Type Activity Date Activity User E-sign Co-sign Detail Recorded Client Recorded Date Recorded By Document 02/15/24 10:51 SACHA [id number] 02/15/24 11:01 DL 02/15/24 10:51 Wound Center Nurse 1 #1 R BUTTOCK -Current Size (cm) - Length 4.5 -Current Size (cm) - Width 1.6 -Current Size (cm) - Depth 3.4 -Total Square Cm 7.20 -Tunneling Position (O'clock) 13 -Tunneling Distance (cm) 5.6 -Exudate Amt Medium -Exudate Type Serosanguineous -Wound Margin Distinct, Outline Attached -Granulation Amt Medium (34-66%) -Granulation Quality Red -Necrosis Amt Medium (34-66%) -Necrotic Tissue Type Adherent Slough -Texture (Anne-wound Skin Appearance) Scarring -Moisture (Anne-wound Skin Appearance) Maceration -Color (Anne-wound Skin Appearance) No Abnormality -Temperature (Anne-wound Skin No Abnormality Appearance) (Pt Warm) -Ulcer Cleansing Not Cleansed -Foul Odor after Cleansing No -Anesthetic Used 5% Lidocaine Gel WC - Nurse 2 - General Ulcer CM Notes Start: 02/15/24 10:51 Freq: Status: Active Protocol: Activity Type Activity Date Activity User E-sign Co-sign Detail Recorded Client Recorded Date Recorded By Document 02/15/24 11:09 [facility] [id number] 02/15/24 11:16 [facility] 02/15/24 11:09 Wound Center Nurse 2 -Time 11:09 -Correct Patient Yes -Correct Side, Site, Position Yes -Correct Procedure Yes -Procedure Performed Yes -Type of Procedure Debridement -Clinical Debridement Muscle / Fascia -Tissue Removed Muscle,Fascia -Post Debridement (cm) - Length 4.5 -Post Debridement (cm) - Width 2 -Post Debridement (cm) - Depth 3 -Total Square (Post) (cm) 9.0 -Area of Debridement (cm) - Length 4.5 -Area of Debridement (cm) - Width 2 -Total Square (Area) (cm) 9.0 -Tunneling Yes -Tunneling Position (O'clock) 1 -Tunneling Distance (cm) 6 -Undermining/Tunneling No -Circular Undermining No -Wound/Ulcer Outcome Not Healed -Ulcer Cleansing Rinsed/ Irrigated with Saline -Foul Odor after Cleansing No -Bioengineered Tissue Yes -Type of Bioengineered Tissue Epifix Mesh -Expiration Date 07/14/28 -Product Lot Number [id number] -Percent Used 100 -Lot number of Saline Used [id number] -Bleeding Controlled with Pressure -Treatment Response Procedure Tolerated Well -Pressure Reduction Wheelchair cushion, Specialty bed -Debridement - Muscle / Fascia, 1st No 20sq cm -Apply Skin Sub - 1st 25 sq cm - Legs 1 -Epifix Mesh (per sq cm) 11 Pain Scale: 0-10 Numeric Is Patient Pain Free? Yes - Nurse 3 - General Ulcer D/C NN Start: 02/15/24 10:51 Freq: Status: Active Protocol: Activity Type Activity Date Activity User E-sign Co-sign Detail Recorded Client Recorded Date Recorded By Document 02/15/24 11:46 [id number] 02/15/24 11:47 02/15/24 11:46 Wound Care Center Nurse 3 #1 R BUTTOCK -Ulcer Cleansing Not Cleansed -Foul Odor after Cleansing Yes -Negative Pressure Wound Therapy Continue -Negative Pressure is Continuous -NPWT Application Charge NPWT </= 50 sq cm ($) Pain Scale: 0-10 Numeric Is Patient Pain Free? Yes - Visit Discharge Discharge Condition Stable Ambulatory Status Ambulatory, Walker Transportation Private Auto Clinical Summary of Care Provided Yes Assessment/Plan Assessment/Plan (1) Infected wound: CODE(S): T14.8XXA - Other injury of unspecified body region, initial encounter; L08.9 - Local infection of the skin and subcutaneous tissue, unspecified (2) Surgical wound, non healing: CODE(S): T81.89XA - Other complications of procedures, not elsewhere classified, initial encounter QUALIFIERS: Encounter type: initial encounter Qualified Code(s): T81.89XA - Other complications of procedures, not elsewhere classified, initial encounter PLAN: EpiFix #3 applied to wound base and covered with a veil Wound VAC to right buttocks decrease pressure to 125 mmHg Use only the black foam base and white foam in the tunneling Follow-up in 1 week Patient is to continue eating well high-protein diet and Giuliano drinks. 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
[2024-02-22 10:52] VITALS: BP 115/70; PULSE 73; RESP 14; TEMP 36.6
--- NOTE | 2024-02-22 11:23 | PCM.WC.PN ---
History of Present Illness Date of Service: 02/22/24 Chief Complaint: Follow-up on right buttocks abscess that opened and is now tunneling. 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 Eventually got worse and was sent to [facility] for surgical debridement and cultures was treated there with PICC line and a wound VAC. He is currently on a wound VAC draining a lot of fluid slight odor but not anything real bad. Does have 2 tunneling areas. He does have history of A-fib and congestive heart failure and had a DVT in the past and is currently on Coumadin. Progress of Wound: The tunneling is improving by half a centimeter. Patient is tolerant to the wound VAC doing very well. We are getting the white up into the tunneling and the black foam in the base cultures were obtained today just to make sure that were negative . All measurements are smaller. The base of the wound looks beefy and you can see new cells developing. Tolerating the EpiFix well and it is helping with healing. Subjective Subjective Patient's sister and they are questioning about going to [place] a 2-[address] and then to our and then a 2-hour drive back so we told him you can figure it out but he needs to lie down he can only be sitting up for 45 minutes at a time he has to be on a gel cushion. Otherwise they are pleased with the outcomes and that the cultures were negative Objective Data Objective Data Measurements are all smaller less depth less tunneling everything looks good he is tolerating the wound VAC at 150 mmHg. Will continue using the wound VAC and EpiFix up into the wound base Vital Signs: Vital Signs Temp Pulse Resp BP 97.8 F 73 14 115/70 02/22/24 10:52 02/22/24 10:52 02/22/24 10:52 02/22/24 10:52 Lab / Micro Data Attestation: I reviewed the patient's lab results. Micro: Microbiology 02/15/24 11:10 Wound - Buttock Gram Stain - Final 02/15/24 11:10 Wound - Buttock Wound Culture - Final Pseudomonas aeruginosa Corynebacterium striatum 02/15/24 11:10 Wound - Buttock Anaerobic Culture - Final Anaerobic cocci Physical Exam Const oriented x3 General Appearance: cooperative Exam Limitations: no limitations HEENT normocephalic Eyes General Eye: normal appearance of both eyes Neck General: normal visual inspection Resp normal respiratory effort Effort and Inspection: able to speak in complete sentences Cardio regular rate and regular rhythm GI Palpation: soft and no hepatosplenomegaly external exam normal Extremity normal to inspection Skin Wounds: wounds noted Wound Narrative: Open wound right buttocks with tunneling x 2 and undermining some odor cultures were obtained Neuro oriented x3 Psych Appearance: grossly normal Speech: normal speech Thought Content: normal thought content Judgement: judgement good Debridement Note Debridement Note Wound debrided: Right buttocks abscess wound Laterality: Right Type of Debridement: Excisional debridement Anesthesia Used: 5% Lidocaine Gel Depth: to muscle Percentage of wound debrided: 100 Instrument Used: 7mm curette Tissue Removed: Fibrin Severity: Fat Layer Exposed Amount of bleeding with debridement: Mild Bleeding Controlled with: Compression and gauze Patient tolerated procedure: Patient tolerated procedure well Post-Debridement Measurements and Additional Note: Post-Debridement Measurements/Treatment - Nurse 1 - General Ulcer Assessment Start: 02/15/24 10:51 Freq: Status: Active Protocol: FILIBERTO.ALICIA Activity Type Activity Date Activity User E-sign Co-sign Detail Recorded Client Recorded Date Recorded By Document 02/15/24 10:51 DL [id number] 02/15/24 11:01 DL Document 02/22/24 10:52 DL [id number] 02/22/24 10:59 DL 02/15/24 02/22/24 10:51 10:52 - Today's Visit Information Type of service Follow-up Visit Follow-up Visit (Physician/SCHOOL PHYSICAL THERAPIST (Physician/SCHOOL PHYSICAL THERAPIST ) ) Arrival Mode Ambulatory, Ambulatory, Walker Walker Transfer Assistance Stretcher Patient Identification Verified (Name & Yes ) Patient Requires Transmission-Based No Precautions Vital Signs Temperature (97.8 F-99.1 F) 97.4 F L 97.8 F Temperature Source Temporal Temporal Pulse Rate (60-100) 71 73 Pulse Location Monitor Monitor Respiratory Rate (12-18) 18 14 Respiratory rate source Observation Observation Blood Pressure (90/60-120/80) 107/64 115/70 Blood Pressure Mean (mm Hg) 78 85 Source Monitor Monitor History Since Last Visit- (Skip if this is Patient's initial visit) Have you changed medications since your No No last visit? Any new allergies or adverse reactions No No Had a fall/change in ADL's that may No No increase risk of falls Signs or symptoms of abuse and/or No No neglect since last visit Have you been in the hospital since your No No last visit? Has dressing in place as prescribed Yes Yes Has compression in place as prescribed N/A Yes Has offloadiing in place as prescribed Yes N/A Experienced any changes in pain level or No No management Left Footwear Regular Shoe Right Footwear Regular Shoe Pain Scale: 0-10 Numeric Is Patient Pain Free? Yes No WC - Nurse 1 - General Ulcer Measurement Start: 02/15/24 10:51 Freq: Status: Active Protocol: Activity Type Activity Date Activity User E-sign Co-sign Detail Recorded Client Recorded Date Recorded By Document 02/15/24 10:51 DL [id number] 02/15/24 11:01 DL Document 02/22/24 10:52 DL [id number] 02/22/24 10:59 DL 02/15/24 02/22/24 10:51 10:52 Wound Center Nurse 1 #1 R BUTTOCK -Current Size (cm) - Length 4.5 3.5 -Current Size (cm) - Width 1.6 1.5 -Current Size (cm) - Depth 3.4 2.7 -Total Square Cm 7.20 5.25 -Tunneling Yes -Tunneling Position (O'clock) 13 1 -Tunneling Distance (cm) 5.6 4.8 -Exudate Amt Medium Medium -Exudate Type Serosanguineous Serosanguineous -Wound Margin Distinct, Distinct, Outline Outline Attached Attached -Granulation Amt Medium (34-66%) Small (1-33%) -Granulation Quality Red Red -Necrosis Amt Medium (34-66%) Medium (34-66%) -Necrotic Tissue Type Adherent Slough -Texture (Anne-wound Skin Appearance) Scarring Assessed -Moisture (Anne-wound Skin Appearance) Maceration Assessed -Color (Anne-wound Skin Appearance) No Abnormality Assessed -Temperature (Anne-wound Skin No Abnormality No Abnormality Appearance) (Pt Warm) (Pt Warm) -Ulcer Cleansing Not Cleansed Soap and Water -Foul Odor after Cleansing No No -Anesthetic Used 5% Lidocaine 5% Lidocaine Gel Gel WC - Nurse 2 - General Ulcer CM Notes Start: 02/15/24 10:51 Freq: Status: Active Protocol: Activity Type Activity Date Activity User E-sign Co-sign Detail Recorded Client Recorded Date Recorded By Document 02/15/24 11:[address] [facility] [id number] 02/15/24 11:[address] [facility] Document 02/22/24 11:[address] [facility] [id number] 02/22/24 11:[address] [facility] 02/15/24 02/22/24 11:09 11:11 Wound Center Nurse 2 #1 R BUTTOCK -Time 11:09 11:11 -Correct Patient Yes Yes -Correct Side, Site, Position Yes Yes -Correct Procedure Yes Yes -Procedure Performed Yes Yes -Type of Procedure Debridement Debridement -Clinical Debridement Muscle / Fascia Muscle / Fascia -Tissue Removed Muscle,Fascia Muscle,Fascia -Post Debridement (cm) - Length 4.5 3.8 -Post Debridement (cm) - Width 2 1.5 -Post Debridement (cm) - Depth 3 1.0 -Total Square (Post) (cm) 9.0 5.70 -Area of Debridement (cm) - Length 4.5 3.8 -Area of Debridement (cm) - Width 2 1.5 -Total Square (Area) (cm) 9.0 5.70 -Tunneling Yes Yes -Tunneling Position (O'clock) 1 1 -Tunneling Distance (cm) 6 4.5 -Undermining/Tunneling No No -Circular Undermining No No -Wound/Ulcer Outcome Not Healed Not Healed -Ulcer Cleansing Rinsed/ Rinsed/ Irrigated with Irrigated with Saline Saline -Foul Odor after Cleansing No No -Bioengineered Tissue Yes Yes -Type of Bioengineered Tissue Epifix Mesh Epifix Mesh -Expiration Date 07/14/28 08/11/28 -Product Lot Number [id number] -Percent Used 100 100 -Lot number of Saline Used [id number] -Bleeding Controlled with Pressure Pressure -Treatment Response Procedure Procedure Tolerated Well Tolerated Well -Pressure Reduction Wheelchair cushion, Specialty bed -Debridement - Muscle / Fascia, 1st No No 20sq cm -Apply Skin Sub - 1st 25 sq cm - Legs 1 1 -Epifix Mesh (per sq cm) 11 11 Pain Scale: 0-10 Numeric Is Patient Pain Free? Yes Yes WC - Nurse 3 - General Ulcer D/C NN Start: 02/15/24 10:51 Freq: Status: Active Protocol: Activity Type Activity Date Activity User E-sign Co-sign Detail Recorded Client Recorded Date Recorded By Document 02/15/24 11:46 [id number] 02/15/24 11:47 02/15/24 11:46 Wound Care Center Nurse 3 #1 R BUTTOCK -Ulcer Cleansing Not Cleansed -Foul Odor after Cleansing Yes -Negative Pressure Wound Therapy Continue -Negative Pressure is Continuous -NPWT Application Charge NPWT </= 50 sq cm ($) Pain Scale: 0-10 Numeric Is Patient Pain Free? Yes WC - Visit Discharge Discharge Condition Stable Ambulatory Status Ambulatory, Walker Transportation Private Auto Clinical Summary of Care Provided Yes Assessment/Plan Assessment/Plan (1) Infected wound: CODE(S): T14.8XXA - Other injury of unspecified body region, initial encounter; L08.9 - Local infection of the skin and subcutaneous tissue, unspecified (2) Surgical wound, non healing: CODE(S): T81.89XA - Other complications of procedures, not elsewhere classified, initial encounter QUALIFIERS: Encounter type: initial encounter Qualified Code(s): T81.89XA - Other complications of procedures, not elsewhere classified, initial encounter PLAN: EpiFix #4 applied to wound base and covered with a veil Wound VAC to right buttocks decrease pressure to 125 mmHg Use only the black foam base and white foam in the tunneling Follow-up in 1 week Patient is to continue eating well high-protein diet and Giuliano drinks. Patient is to continue offloading of the right buttocks Is patient's decision about the but he has to be able to lay down and only can stand and sit for 45 minutes at a time. 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
--- NOTE | 2024-02-23 14:10 | WC ---
n.o.'s received per ha [place] r/t anaerobic final cx. start metronidazole. pt and updated. allergies verified and reviewed. called into [facility] per request.
[2024-02-29 10:43] VITALS: BP 103/64; PULSE 68; RESP 20; TEMP 36.2
--- NOTE | 2024-02-29 12:21 | PCM.WC.PN ---
History of Present Illness Date of Service: 02/29/24 Chief Complaint: Follow-up on right buttocks abscess that opened and is now tunneling. 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 Eventually got worse and was sent to [facility] for surgical debridement and cultures was treated there with PICC line and a wound VAC. He is currently on a wound VAC draining a lot of fluid slight odor but not anything real bad. Does have 2 tunneling areas. He does have history of A-fib and congestive heart failure and had a DVT in the past and is currently on Coumadin. Progress of Wound: The tunneling is improving by half a centimeter again. Patient is tolerant to the wound VAC doing very well. We are getting the white up into the tunneling and the black foam in the base cultures were obtained today just to make sure that were negative . All measurements are smaller. The base of the wound looks beefy and you can see new cells developing. Tolerating the EpiFix well and it is helping with healing. Subjective Subjective and patient are happy with outcomes Objective Data Objective Data Measurements are smaller less depth and tunneling we will continue to use the wound VAC and EpiFix in the wound to heal Positive culture we will start antibiotic therapy Vital Signs: Vital Signs Temp Pulse Resp BP 97.2 F L 68 20 H 103/64 02/29/24 10:43 02/29/24 10:43 02/29/24 10:43 02/29/24 10:43 Lab / Micro Data Attestation: I reviewed the patient's lab results. Micro: Microbiology 02/15/24 11:10 Wound - Buttock Gram Stain - Final 02/15/24 11:10 Wound - Buttock Wound Culture - Final Pseudomonas aeruginosa Corynebacterium striatum 02/15/24 11:10 Wound - Buttock Anaerobic Culture - Final Anaerobic cocci Physical Exam Const oriented x3 General Appearance: cooperative Exam Limitations: no limitations HEENT normocephalic Eyes General Eye: normal appearance of both eyes Neck General: normal visual inspection Resp normal respiratory effort Effort and Inspection: able to speak in complete sentences Cardio regular rate and regular rhythm GI Palpation: soft and no hepatosplenomegaly external exam normal Extremity normal to inspection Skin Wounds: wounds noted Wound Narrative: Open wound right buttocks with tunneling x 2 and undermining some odor cultures were obtained Neuro oriented x3 Psych Appearance: grossly normal Speech: normal speech Thought Content: normal thought content Judgement: judgement good Debridement Note Debridement Note Wound debrided: Right buttocks abscess wound Laterality: Right Type of Debridement: Excisional debridement Anesthesia Used: 5% Lidocaine Gel Depth: to muscle Percentage of wound debrided: 100 Instrument Used: 5mm curette Tissue Removed: Fibrin Severity: Fat Layer Exposed Amount of bleeding with debridement: Moderate Bleeding Controlled with: Compression and gauze Patient tolerated procedure: Patient tolerated procedure well Post-Debridement Measurements and Additional Note: Post-Debridement Measurements/Treatment - Nurse 1 - General Ulcer Assessment Start: 02/15/24 10:51 Freq: Status: Active Protocol: BRIELLE Activity Type Activity Date Activity User E-sign Co-sign Detail Recorded Client Recorded Date Recorded By Document 02/15/24 10:51 DL [id number] 02/15/24 11:01 DL Document 02/22/24 10:52 DL [id number] 02/22/24 10:59 DL Document 02/29/24 10:43 DL [id number] 02/29/24 10:54 DL 02/15/24 02/22/24 02/29/24 10:51 10:52 10:43 - Today's Visit Information Type of service Follow-up Visit Follow-up Visit Follow-up Visit (Physician/DUPLIGRAPH OPERATOR (Physician/DUPLIGRAPH OPERATOR (Physician/DUPLIGRAPH OPERATOR ) ) ) Arrival Mode Ambulatory, Ambulatory, Ambulatory, Walker Walker Walker Transfer Assistance Stretcher None Patient Identification Verified (Name & Yes Yes ) Patient Requires Transmission-Based No No Precautions Vital Signs Temperature (97.8 F-99.1 F) 97.4 F L 97.8 F 97.2 F L Temperature Source Temporal Temporal Temporal Pulse Rate (60-100) 71 73 68 Pulse Location Monitor Monitor Monitor Respiratory Rate (12-18) 18 14 20 H Respiratory rate source Observation Observation Observation Blood Pressure (90/60-120/80) 107/64 115/70 103/64 Blood Pressure Mean (mm Hg) 78 85 77 Source Monitor Monitor Monitor History Since Last Visit- (Skip if this is Patient's initial visit) Have you changed medications since your No No No last visit? Any new allergies or adverse reactions No No No Had a fall/change in ADL's that may No No No increase risk of falls Signs or symptoms of abuse and/or No No No neglect since last visit Have you been in the hospital since your No No No last visit? Has dressing in place as prescribed Yes Yes Yes Has compression in place as prescribed N/A Yes N/A Has offloadiing in place as prescribed Yes N/A Yes Experienced any changes in pain level or No No No management Left Footwear Regular Shoe Right Footwear Regular Shoe Pain Scale: 0-10 Numeric Is Patient Pain Free? Yes No Yes WC - Nurse 1 - General Ulcer Measurement Start: 02/15/24 10:51 Freq: Status: Active Protocol: Activity Type Activity Date Activity User E-sign Co-sign Detail Recorded Client Recorded Date Recorded By Document 02/15/24 10:51 DL [id number] 02/15/24 11:01 DL Document 02/22/24 10:52 DL [id number] 02/22/24 10:59 DL Document 02/29/24 10:43 DL [id number] 02/29/24 10:54 DL 02/15/24 02/22/24 02/29/24 10:51 10:52 10:43 Wound Center Nurse 1 #1 R BUTTOCK -Current Size (cm) - Length 4.5 3.5 3 -Current Size (cm) - Width 1.6 1.5 1.3 -Current Size (cm) - Depth 3.4 2.7 2.9 -Total Square Cm 7.20 5.25 3.9 -Tunneling Yes -Tunneling Position (O'clock) 13 1 1 -Tunneling Distance (cm) 5.6 4.8 5.3 -Exudate Amt Medium Medium Medium -Exudate Type Serosanguineous Serosanguineous Serosanguineous -Wound Margin Distinct, Distinct, Thickened & Outline Outline Rolled Under Attached Attached -Granulation Amt Medium (34-66%) Small (1-33%) Medium (34-66%) -Granulation Quality Red Red Red -Necrosis Amt Medium (34-66%) Medium (34-66%) Medium (34-66%) -Necrotic Tissue Type Adherent Slough Adherent Slough -Structure Exposed N/A -Texture (Anne-wound Skin Appearance) Scarring Assessed Scarring -Moisture (Anne-wound Skin Appearance) Maceration Assessed -Color (Anne-wound Skin Appearance) No Abnormality Assessed No Abnormality -Temperature (Anne-wound Skin No Abnormality No Abnormality No Abnormality Appearance) (Pt Warm) (Pt Warm) (Pt Warm) -Tenderness on Palpation (Anne-wound No Skin Appearance) -Ulcer Cleansing Not Cleansed Soap and Water Soap and Water -Foul Odor after Cleansing No No No -Anesthetic Used 5% Lidocaine 5% Lidocaine 5% Lidocaine Gel Gel Gel WC - Nurse 2 - General Ulcer CM Notes Start: 02/15/24 10:51 Freq: Status: Active Protocol: Activity Type Activity Date Activity User E-sign Co-sign Detail Recorded Client Recorded Date Recorded By Document 02/15/24 11:[address] [facility] [id number] 02/15/24 11:[address] [facility] Document 02/22/24 11:[address] [facility] [id number] 02/22/24 11:[address] [facility] Document 02/29/24 11:[address] [facility] [id number] 02/29/24 11:[address] [facility] 02/15/24 02/22/24 02/29/24 11:09 11:11 11:02 Wound Center Nurse 2 #1 R BUTTOCK -Time 11:09 11:11 11:02 -Correct Patient Yes Yes Yes -Correct Side, Site, Position Yes Yes Yes -Correct Procedure Yes Yes Yes -Procedure Performed Yes Yes Yes -Type of Procedure Debridement Debridement Debridement -Clinical Debridement Muscle / Fascia Muscle / Fascia Muscle / Fascia -Tissue Removed Muscle,Fascia Muscle,Fascia Muscle,Fascia -Post Debridement (cm) - Length 4.5 3.8 3.8 -Post Debridement (cm) - Width 2 1.5 0.8 -Post Debridement (cm) - Depth 3 1.0 2.8 -Total Square (Post) (cm) 9.0 5.70 3.04 -Area of Debridement (cm) - Length 4.5 3.8 3.8 -Area of Debridement (cm) - Width 2 1.5 0.8 -Total Square (Area) (cm) 9.0 5.70 3.04 -Tunneling Yes Yes Yes -Tunneling Position (O'clock) 1 1 2 -Tunneling Distance (cm) 6 4.5 6.3 -Undermining/Tunneling No No No -Circular Undermining No No No -Wound/Ulcer Outcome Not Healed Not Healed Not Healed -Ulcer Cleansing Rinsed/ Rinsed/ Rinsed/ Irrigated with Irrigated with Irrigated with Saline Saline Saline -Foul Odor after Cleansing No No No -Bioengineered Tissue Yes Yes No -Type of Bioengineered Tissue Epifix Mesh Epifix Mesh Epifix Mesh -Expiration Date 07/14/28 08/11/28 11/12/27 -Product Lot Number [id number] -Percent Used 100 100 100 -Lot number of Saline Used [id number] -Bleeding Controlled with Pressure Pressure Pressure -Treatment Response Procedure Procedure Procedure Tolerated Well Tolerated Well Tolerated Well -Pressure Reduction Wheelchair cushion, Specialty bed -Debridement - Muscle / Fascia, 1st No No No 20sq cm -Apply Skin Sub - 1st 25 sq cm - Legs 1 1 1 -Epifix (per sq cm) 4 -Epifix Mesh (per sq cm) 11 11 Pain Scale: 0-10 Numeric Is Patient Pain Free? Yes Yes Yes - Nurse 3 - General Ulcer D/C NN Start: 02/15/24 10:51 Freq: Status: Active Protocol: Activity Type Activity Date Activity User E-sign Co-sign Detail Recorded Client Recorded Date Recorded By Document 02/15/24 11:46 GM [id number] 02/15/24 11:47 GM Document 02/22/24 11:45 DL [id number] 02/22/24 11:46 DL Document 02/29/24 12:08 RB [id number] 02/29/24 12:09 RB 02/15/24 02/22/24 02/29/24 11:46 11:45 12:08 Wound Care Center Nurse 3 #1 R BUTTOCK -Ulcer Cleansing Not Cleansed Soap and Water Wound Cleanser -Foul Odor after Cleansing Yes No -Negative Pressure Wound Therapy Continue Continue Continue -Setting (mmHg) 125 125 -Negative Pressure is Continuous Continuous Continuous -NPWT Application Charge NPWT </= 50 sq NPWT & NPWT & cm ($) Debridement (nc Debridement (nc ) ) -Wound Comment(s) white foam to white foam to tunnel tunnel Anne-Wound Care Barrier Treatment Response Procedure Procedure Tolerated Well Tolerated Well Pain Scale: 0-10 Numeric Is Patient Pain Free? Yes Yes Yes - Visit Discharge Discharge Condition Stable Stable Stable Ambulatory Status Ambulatory, Ambulatory, Walker Walker Walker Transportation Private Auto Private Auto Private Auto Medication Reconcilliation completed & No provided to patient/care provider Clinical Summary of Care Provided Yes Yes Facility Type Home Health Orders Sent Yes Assessment/Plan Assessment/Plan (1) Infected wound: CODE(S): T14.8XXA - Other injury of unspecified body region, initial encounter; L08.9 - Local infection of the skin and subcutaneous tissue, unspecified (2) Surgical wound, non healing: CODE(S): T81.89XA - Other complications of procedures, not elsewhere classified, initial encounter QUALIFIERS: Encounter type: initial encounter Qualified Code(s): T81.89XA - Other complications of procedures, not elsewhere classified, initial encounter PLAN: EpiFix #5 applied to wound base and covered with a veil Wound VAC to right buttocks decrease pressure to 125 mmHg Use only the black foam base and white foam in the tunneling Follow-up in 1 week Patient is to continue eating well high-protein diet and Giuliano drinks. 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
[2024-03-07 10:49] VITALS: BP 107/65; PULSE 64; RESP 18; TEMP 36.3
--- NOTE | 2024-03-07 12:16 | PCM.WC.PN ---
History of Present Illness Date of Service: 03/07/24 Chief Complaint: Follow-up on right buttocks abscess that opened and is now tunneling. 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 Eventually got worse and was sent to [facility] for surgical debridement and cultures was treated there with PICC line and a wound VAC. He is currently on a wound VAC draining a lot of fluid slight odor but not anything real bad. Does have 2 tunneling areas. He does have history of A-fib and congestive heart failure and had a DVT in the past and is currently on Coumadin. Progress of Wound: The tunneling is improving by half a centimeter again. Patient is tolerant to the wound VAC doing very well. We are getting the white up into the tunneling and the black foam in the base cultures were obtained today just to make sure that were negative . All measurements are smaller. The base of the wound looks beefy and you can see new cells developing. Tolerating the EpiFix well and it is helping with healing. Subjective Subjective Very pleased with outcomes Objective Data Objective Data Measurements are measuring smaller the tunneling is measuring smaller he is doing very well on the wound VAC with EpiFix is in the wound VAC Vital Signs: Vital Signs Temp Pulse Resp BP O2 Del Method 97.4 F L 64 18 107/65 Room Air 03/07/24 10:49 03/07/24 10:49 03/07/24 10:49 03/07/24 10:49 03/07/24 10:49 Oxygen Delivery Method Room Air Lab / Micro Data Attestation: I reviewed the patient's lab results. Micro: Microbiology 02/15/24 11:10 Wound - Buttock Gram Stain - Final 02/15/24 11:10 Wound - Buttock Wound Culture - Final Pseudomonas aeruginosa Corynebacterium striatum 02/15/24 11:10 Wound - Buttock Anaerobic Culture - Final Anaerobic cocci Debridement Note Debridement Note Wound debrided: Right buttocks abscess wound Laterality: Right Type of Debridement: Excisional debridement Anesthesia Used: 5% Lidocaine Gel Depth: to muscle Percentage of wound debrided: 100 Instrument Used: 5mm curette Tissue Removed: Fibrin Severity: Fat Layer Exposed Amount of bleeding with debridement: Moderate Bleeding Controlled with: Compression and gauze Patient tolerated procedure: Patient tolerated procedure well Post-Debridement Measurements and Additional Note: Post-Debridement Measurements/Treatment - Nurse 1 - General Ulcer Assessment Start: 02/15/24 10:51 Freq: Status: Active Protocol: BRIELLE Activity Type Activity Date Activity User E-sign Co-sign Detail Recorded Client Recorded Date Recorded By Document 02/15/24 10:51 DL [id number] 02/15/24 11:01 DL Document 02/22/24 10:52 DL [id number] 02/22/24 10:59 DL Document 02/29/24 10:43 DL [id number] 02/29/24 10:54 DL Document 03/07/24 10:49 GM [id number] 03/07/24 11:23 GM 02/15/24 02/22/24 02/29/24 10:51 10:52 10:43 - Today's Visit Information Type of service Follow-up Visit Follow-up Visit Follow-up Visit (Physician/ELECTROSTATIC PAINTER (Physician/ELECTROSTATIC PAINTER (Physician/ELECTROSTATIC PAINTER ) ) ) Arrival Mode Ambulatory, Ambulatory, Ambulatory, Walker Walker Walker Transfer Assistance Stretcher None Patient Identification Verified (Name & Yes Yes ) Patient Requires Transmission-Based No No Precautions Vital Signs Temperature (97.8 F-99.1 F) 97.4 F L 97.8 F 97.2 F L Temperature Source Temporal Temporal Temporal Pulse Rate (60-100) 71 73 68 Pulse Location Monitor Monitor Monitor Respiratory Rate (12-18) 18 14 20 H Respiratory rate source Observation Observation Observation Oxygen Delivery Method Blood Pressure (90/60-120/80) 107/64 115/70 103/64 Blood Pressure Mean (mm Hg) 78 85 77 Source Monitor Monitor Monitor Position Blood Pressure Location History Since Last Visit- (Skip if this is Patient's initial visit) Have you changed medications since your No No No last visit? Any new allergies or adverse reactions No No No Had a fall/change in ADL's that may No No No increase risk of falls Signs or symptoms of abuse and/or No No No neglect since last visit Have you been in the hospital since your No No No last visit? Has dressing in place as prescribed Yes Yes Yes Has compression in place as prescribed N/A Yes N/A Has offloadiing in place as prescribed Yes N/A Yes Experienced any changes in pain level or No No No management Left Footwear Regular Shoe Right Footwear Regular Shoe Pain Scale: 0-10 Numeric Is Patient Pain Free? Yes No Yes 03/07/24 10:49 - Today's Visit Information Type of service Follow-up Visit (Physician/ELECTROSTATIC PAINTER ) Arrival Mode Ambulatory, Walker Transfer Assistance Patient Identification Verified (Name & Yes ) Patient Requires Transmission-Based Precautions Vital Signs Temperature (97.8 F-99.1 F) 97.4 F L Temperature Source Temporal Pulse Rate (60-100) 64 Pulse Location Monitor Respiratory Rate (12-18) 18 Respiratory rate source Observation Oxygen Delivery Method Room Air Blood Pressure (90/60-120/80) 107/65 Blood Pressure Mean (mm Hg) 79 Source Monitor Position Sitting Blood Pressure Location Right Arm History Since Last Visit- (Skip if this is Patient's initial visit) Have you changed medications since your No last visit? Any new allergies or adverse reactions No Had a fall/change in ADL's that may No increase risk of falls Signs or symptoms of abuse and/or No neglect since last visit Have you been in the hospital since your No last visit? Has dressing in place as prescribed Yes Has compression in place as prescribed N/A Has offloadiing in place as prescribed N/A Experienced any changes in pain level or Yes management Left Footwear Right Footwear Pain Scale: 0-10 Numeric Is Patient Pain Free? Yes - Nurse 1 - General Ulcer Measurement Start: 02/15/24 10:51 Freq: Status: Active Protocol: Activity Type Activity Date Activity User E-sign Co-sign Detail Recorded Client Recorded Date Recorded By Document 02/15/24 10:51 DL [id number] 02/15/24 11:01 DL Document 02/22/24 10:52 DL [id number] 02/22/24 10:59 DL Document 02/29/24 10:43 DL [id number] 02/29/24 10:54 DL Document 03/07/24 10:49 GM [id number] 03/07/24 11:23 02/15/24 02/22/24 02/29/24 10:51 10:52 10:43 Wound Center Nurse 1 #1 R BUTTOCK -Combined with other wound -Current Size (cm) - Length 4.5 3.5 3 -Current Size (cm) - Width 1.6 1.5 1.3 -Current Size (cm) - Depth 3.4 2.7 2.9 -Total Square Cm 7.20 5.25 3.9 -Date of Last Picture (Recall this field) -Photo Taken -Tunneling Yes -Tunneling Position (O'clock) 13 1 1 -Tunneling Distance (cm) 5.6 4.8 5.3 -Undermining/Tunneling -Undermining/Tunneling Starts (O'clock ) -Undermining/Tunneling Ends (O'clock) -Maximum Distance (cm) -Exudate Amt Medium Medium Medium -Exudate Type Serosanguineous Serosanguineous Serosanguineous -Wound Margin Distinct, Distinct, Thickened & Outline Outline Rolled Under Attached Attached -Granulation Amt Medium (34-66%) Small (1-33%) Medium (34-66%) -Granulation Quality Red Red Red -Slough/Fibrin -Necrosis Amt Medium (34-66%) Medium (34-66%) Medium (34-66%) -Necrotic Tissue Type Adherent Slough Adherent Slough -Structure Exposed N/A -Texture (Anne-wound Skin Appearance) Scarring Assessed Scarring -Moisture (Anne-wound Skin Appearance) Maceration Assessed -Color (Anne-wound Skin Appearance) No Abnormality Assessed No Abnormality -Temperature (Anne-wound Skin No Abnormality No Abnormality No Abnormality Appearance) (Pt Warm) (Pt Warm) (Pt Warm) -Tenderness on Palpation (Anne-wound No Skin Appearance) -Ulcer Cleansing Not Cleansed Soap and Water Soap and Water -Foul Odor after Cleansing No No No -Anesthetic Used 5% Lidocaine 5% Lidocaine 5% Lidocaine Gel Gel Gel 03/07/24 10:49 Wound Center Nurse 1 #1 R BUTTOCK -Combined with other wound No -Current Size (cm) - Length 3.0 -Current Size (cm) - Width 1.2 -Current Size (cm) - Depth 4.7 -Total Square Cm 3.60 -Date of Last Picture (Recall this 03/07/24 field) -Photo Taken Yes -Tunneling -Tunneling Position (O'clock) -Tunneling Distance (cm) -Undermining/Tunneling Yes -Undermining/Tunneling Starts (O'clock 10 ) -Undermining/Tunneling Ends (O'clock) 12 -Maximum Distance (cm) 5.5 -Exudate Amt Large -Exudate Type Serosanguineous -Wound Margin Distinct, Outline Attached -Granulation Amt Medium (34-66%) -Granulation Quality [place] -Slough/Fibrin No -Necrosis Amt -Necrotic Tissue Type -Structure Exposed -Texture (Anne-wound Skin Appearance) Assessed -Moisture (Anne-wound Skin Appearance) Assessed -Color (Anne-wound Skin Appearance) Assessed -Temperature (Anne-wound Skin No Abnormality Appearance) (Pt Warm) -Tenderness on Palpation (Anne-wound Skin Appearance) -Ulcer Cleansing Soap and Water -Foul Odor after Cleansing -Anesthetic Used 4% Lidocaine Solution WC - Nurse 2 - General Ulcer CM Notes Start: 02/15/24 10:51 Freq: Status: Active Protocol: Activity Type Activity Date Activity User E-sign Co-sign Detail Recorded Client Recorded Date Recorded By Document 02/15/24 11:09 [employer] [id number] 02/15/24 11:16 [employer] Document 02/22/24 11:11 [employer] [id number] 02/22/24 11:19 [employer] Document 02/29/24 11:02 [employer] [id number] 02/29/24 11:14 [employer] Document 03/07/24 11:16 [employer] [id number] 03/07/24 11:23 [employer] 02/15/24 02/22/24 02/29/24 11:09 11:11 11:02 Wound Center Nurse 2 #1 R BUTTOCK -Time 11:09 11:11 11:02 -Correct Patient Yes Yes Yes -Correct Side, Site, Position Yes Yes Yes -Correct Procedure Yes Yes Yes -Procedure Performed Yes Yes Yes -Type of Procedure Debridement Debridement Debridement -Clinical Debridement Muscle / Fascia Muscle / Fascia Muscle / Fascia -Tissue Removed Muscle,Fascia Muscle,Fascia Muscle,Fascia -Post Debridement (cm) - Length 4.5 3.8 3.8 -Post Debridement (cm) - Width 2 1.5 0.8 -Post Debridement (cm) - Depth 3 1.0 2.8 -Total Square (Post) (cm) 9.0 5.70 3.04 -Area of Debridement (cm) - Length 4.5 3.8 3.8 -Area of Debridement (cm) - Width 2 1.5 0.8 -Total Square (Area) (cm) 9.0 5.70 3.04 -Tunneling Yes Yes Yes -Tunneling Position (O'clock) 1 1 2 -Tunneling Distance (cm) 6 4.5 6.3 -Undermining/Tunneling No No No -Circular Undermining No No No -Wound/Ulcer Outcome Not Healed Not Healed Not Healed -Ulcer Cleansing Rinsed/ Rinsed/ Rinsed/ Irrigated with Irrigated with Irrigated with Saline Saline Saline -Foul Odor after Cleansing No No No -Bioengineered Tissue Yes Yes No -Type of Bioengineered Tissue Epifix Mesh Epifix Mesh Epifix Mesh -Expiration Date 07/14/28 08/11/28 11/12/27 -Product Lot Number [id number] -Percent Used 100 100 100 -Lot number of Saline Used [id number] -Bleeding Controlled with Pressure Pressure Pressure -Treatment Response Procedure Procedure Procedure Tolerated Well Tolerated Well Tolerated Well -Pressure Reduction Wheelchair cushion, Specialty bed -Debridement - Muscle / Fascia, 1st No No No 20sq cm -Apply Skin Sub - 1st 25 sq cm - Legs 1 1 1 -Epifix (per sq cm) 4 -Epifix Mesh (per sq cm) 11 11 Pain Scale: 0-10 Numeric Is Patient Pain Free? Yes Yes Yes 03/07/24 11:16 Wound Center Nurse 2 #1 R BUTTOCK -Time 11:16 -Correct Patient Yes -Correct Side, Site, Position Yes -Correct Procedure Yes -Procedure Performed -Type of Procedure -Clinical Debridement Muscle / Fascia -Tissue Removed Muscle,Fascia -Post Debridement (cm) - Length 3 -Post Debridement (cm) - Width 1 -Post Debridement (cm) - Depth 2.9 -Total Square (Post) (cm) 3 -Area of Debridement (cm) - Length 3 -Area of Debridement (cm) - Width 1 -Total Square (Area) (cm) 3 -Tunneling Yes -Tunneling Position (O'clock) 2 -Tunneling Distance (cm) 4.5 -Undermining/Tunneling No -Circular Undermining No -Wound/Ulcer Outcome Not Healed -Ulcer Cleansing Rinsed/ Irrigated with Saline -Foul Odor after Cleansing No -Bioengineered Tissue Yes -Type of Bioengineered Tissue Epifix -Expiration Date 09/11/28 -Product Lot Number [id number] -Percent Used 100 -Lot number of Saline Used [id number] -Bleeding Controlled with Pressure -Treatment Response Procedure Tolerated Well -Pressure Reduction -Debridement - Muscle / Fascia, 1st No 20sq cm -Apply Skin Sub - 1st 25 sq cm - Legs 1 -Epifix (per sq cm) 4 -Epifix Mesh (per sq cm) Pain Scale: 0-10 Numeric Is Patient Pain Free? Yes - Nurse 3 - General Ulcer D/C NN Start: 02/15/24 10:51 Freq: Status: Active Protocol: Activity Type Activity Date Activity User E-sign Co-sign Detail Recorded Client Recorded Date Recorded By Document 02/15/24 11:46 GM [id number] 02/15/24 11:47 GM Document 02/22/24 11:45 DL [id number] 02/22/24 11:46 DL Document 02/29/24 12:08 RB [id number] 02/29/24 12:09 RB Document 03/07/24 11:39 RB [id number] 03/07/24 11:41 RB 02/15/24 02/22/24 02/29/24 11:46 11:45 12:08 Wound Care Center Nurse 3 #1 R BUTTOCK -Ulcer Cleansing Not Cleansed Soap and Water Wound Cleanser -Foul Odor after Cleansing Yes No -Negative Pressure Wound Therapy Continue Continue Continue -Setting (mmHg) 125 125 -Negative Pressure is Continuous Continuous Continuous -NPWT Application Charge NPWT </= 50 sq NPWT & NPWT & cm ($) Debridement (nc Debridement (nc ) ) -Wound Comment(s) white foam to white foam to tunnel tunnel Anne-Wound Care Barrier Treatment Response Procedure Procedure Tolerated Well Tolerated Well Pain Scale: 0-10 Numeric Is Patient Pain Free? Yes Yes Yes - Visit Discharge Discharge Condition Stable Stable Stable Ambulatory Status Ambulatory, Ambulatory, Walker Walker Walker Transportation Private Auto Private Auto Private Auto Medication Reconcilliation completed & No provided to patient/care provider Clinical Summary of Care Provided Yes Yes Facility Type Home Health Orders Sent Yes 03/07/24 11:39 Wound Care Center Nurse 3 #1 R BUTTOCK -Ulcer Cleansing Wound Cleanser -Foul Odor after Cleansing -Negative Pressure Wound Therapy Continue -Setting (mmHg) 125 -Negative Pressure is Continuous -NPWT Application Charge NPWT & Debridement (nc ) -Wound Comment(s) Anne-Wound Care Treatment Response Procedure Tolerated Well Pain Scale: 0-10 Numeric Is Patient Pain Free? Yes WC - Visit Discharge Discharge Condition Stable Ambulatory Status Ambulatory, Walker Transportation Private Auto Medication Reconcilliation completed & No provided to patient/care provider Clinical Summary of Care Provided Yes Facility Type Orders Sent Assessment/Plan Assessment/Plan (1) Infected wound: CODE(S): T14.8XXA - Other injury of unspecified body region, initial encounter; L08.9 - Local infection of the skin and subcutaneous tissue, unspecified (2) Surgical wound, non healing: CODE(S): T81.89XA - Other complications of procedures, not elsewhere classified, initial encounter QUALIFIERS: Encounter type: initial encounter Qualified Code(s): T81.89XA - Other complications of procedures, not elsewhere classified, initial encounter PLAN: EpiFix #6 applied to wound base and covered with a veil Wound VAC to right buttocks decrease pressure to 125 mmHg Use only the black foam base and white foam in the tunneling Follow-up in 1 week Patient is to continue eating well high-protein diet and Giuliano drinks. Patient is to continue offloading of the right buttocks Patient is to continue antibiotic therapy for positive culture (3) snf current use of anticoagulant therapy: CODE(S): Z79.01 - snf (current) use of anticoagulants PLAN: Patient has been getting his INRs checked weekly and they are 1.9
--- NOTE | 2024-03-09 08:54 | WC ---
PHOTO 03/07/24 RIGHT BUTTOCKS
== END 2024-03-12 23:59 | disposition home or self-care (01) ==
LOC: WC 10:30
PROVIDERS: PCP Family Medicine; Referring Provider Family Medicine; Visit Provider Nurse Practitioner
DX: T81.89XA Other complications of procedures, not elsewhere classified, initial encounter (principal); I50.9 Heart failure, unspecified; I48.91 Unspecified atrial fibrillation; Z86.718 Personal history of other venous thrombosis and embolism; T14.8XXA Other injury of unspecified body region, initial encounter; Z79.01 Long term (current) use of anticoagulants; L08.9 Local infection of the skin and subcutaneous tissue, unspecified
CPT/HCPCS: 15271; 87070; 87075; 87077; 87186; 87205; 97605; Q4186

== ENCOUNTER 2024-04-11 10:30 | Outpatient (RCR) | payer MEDICARE, SELFPAY ==
[2024-03-13 00:36] VITALS: BP 135/72; PULSE 76; RESP 18; TEMP 36.6
[2024-03-14 10:47] VITALS: BP 101/58; PULSE 66; RESP 20; TEMP 36.3
--- NOTE | 2024-03-14 12:48 | PN.PCM_ITS ---
History of Present Illness Date of Service: 03/14/24 Chief Complaint: Follow-up on right buttocks abscess that opened and is now tunneling. 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 Eventually got worse and was sent to [facility] for surgical debridement and cultures was treated there with PICC line and a wound VAC. He is currently on a wound VAC draining a lot of fluid slight odor but not anything real bad. Does have 2 tunneling areas. He does have history of A-fib and congestive heart failure and had a DVT in the past and is currently on Coumadin. Progress of Wound: So all measurements on the buttocks is smaller shorter tunneling is much better. Patient is still using the wound VAC or still applying EpiFix he will get EpiFix #7 to the wound base area we still have the pressure decreased to 125 patient is tolerant to all Subjective Subjective Family is pleased with outcomes Objective Data Objective Data Will continue wound VAC and EpiFix is healing nicely filling and good still does have some tunneling areas that we will work on with the white foam. Vital Signs: Vital Signs Temp Pulse Resp BP 97.4 F L 66 20 H 101/58 L 03/14/24 10:47 03/14/24 10:47 03/14/24 10:47 03/14/24 10:47 Physical Exam Const oriented x3 General Appearance: cooperative Exam Limitations: no limitations HEENT normocephalic Eyes General Eye: normal appearance of both eyes Neck General: normal visual inspection Resp normal respiratory effort Effort and Inspection: able to speak in complete sentences Cardio regular rate and regular rhythm GI Palpation: soft and no hepatosplenomegaly external exam normal Extremity normal to inspection Skin Wounds: wounds noted Wound Narrative: Open wound right buttocks with tunneling x 2 and undermining some odor cultures were obtained Neuro oriented x3 Psych Appearance: grossly normal Speech: normal speech Thought Content: normal thought content Judgement: judgement good Debridement Note Debridement Note Wound debrided: Right buttocks abscess wound Laterality: Right Type of Debridement: Excisional debridement Anesthesia Used: 5% Lidocaine Gel Depth: to muscle Percentage of wound debrided: 100 Instrument Used: 5mm curette Tissue Removed: Fibrin Severity: Fat Layer Exposed Amount of bleeding with debridement: Moderate Bleeding Controlled with: Compression and gauze Patient tolerated procedure: Patient tolerated procedure well Post-Debridement Measurements and Additional Note: Post-Debridement Measurements/Treatment [email or web address] - Nurse 1 - General Ulcer Assessment Start: 03/14/24 10:45 Freq: Status: Active Protocol: BRIELLE Activity Type Activity Date Activity User E-sign Co-sign Detail Recorded Client Recorded Date Recorded By Document 03/14/24 10:47 DL [id number] 03/14/24 10:57 DL 03/14/24 10:47 WC - Today's Visit Information Type of service Follow-up Visit (Physician/CHIEF INNOVATION OFFICER ) Arrival Mode Ambulatory, Walker Transfer Assistance None Patient Identification Verified (Name & Yes ) Patient Requires Transmission-Based No Precautions Vital Signs Temperature (97.8 F-99.1 F) 97.4 F L Temperature Source Temporal Pulse Rate (60-100) 66 Pulse Location Monitor Respiratory Rate (12-18) 20 H Respiratory rate source Observation Blood Pressure (90/60-120/80) 101/58 L Blood Pressure Mean (mm Hg) 72 Source Monitor History Since Last Visit- (Skip if this is Patient's initial visit) Have you changed medications since your No last visit? Any new allergies or adverse reactions No Had a fall/change in ADL's that may No increase risk of falls Signs or symptoms of abuse and/or No neglect since last visit Have you been in the hospital since your No last visit? Has dressing in place as prescribed No Has compression in place as prescribed N/A Has offloadiing in place as prescribed Yes Experienced any changes in pain level or No management Pain Scale: 0-10 Numeric Is Patient Pain Free? Yes FILIBERTO - Nurse 1 - General Ulcer Measurement Start: 03/14/24 10:45 Freq: Status: Active Protocol: Activity Type Activity Date Activity User E-sign Co-sign Detail Recorded Client Recorded Date Recorded By Document 03/14/24 10:47 DL [id number] 03/14/24 10:57 DL 03/14/24 10:47 Wound Center Nurse 1 #1 R BUTTOCK -Current Size (cm) - Length 1.5 -Current Size (cm) - Width 1 -Current Size (cm) - Depth 2.5 -Total Square Cm 1.5 -Tunneling Position (O'clock) 2 -Tunneling Distance (cm) 4.4 -Exudate Amt Medium -Exudate Type Serosanguineous -Wound Margin Thickened -Granulation Amt Medium (34-66%) -Granulation Quality Red -Necrosis Amt Medium (34-66%) -Necrotic Tissue Type Adherent Slough -Structure Exposed N/A -Texture (Anne-wound Skin Appearance) Scarring -Moisture (Anne-wound Skin Appearance) No Abnormality -Color (Anne-wound Skin Appearance) No Abnormality -Temperature (Anne-wound Skin No Abnormality Appearance) (Pt Warm) -Ulcer Cleansing Soap and Water -Foul Odor after Cleansing No -Anesthetic Used 5% Lidocaine Gel - Nurse 2 - General Ulcer CM Notes Start: 03/14/24 10:45 Freq: Status: Active Protocol: Activity Type Activity Date Activity User E-sign Co-sign Detail Recorded Client Recorded Date Recorded By Document 03/14/24 11:16 [facility] [id number] 03/14/24 11:27 [facility] 03/14/24 11:16 Wound Center Nurse 2 -Time 11:17 -Correct Patient Yes -Correct Side, Site, Position Yes -Correct Procedure Yes -Procedure Performed Yes -Type of Procedure Debridement -Clinical Debridement Muscle / Fascia -Tissue Removed Muscle,Fascia -Post Debridement (cm) - Length 2.5 -Post Debridement (cm) - Width 1.8 -Post Debridement (cm) - Depth 1.4 -Total Square (Post) (cm) 4.50 -Area of Debridement (cm) - Length 2.5 -Area of Debridement (cm) - Width 1.8 -Total Square (Area) (cm) 4.50 -Tunneling Yes -Tunneling Position (O'clock) 2 -Tunneling Distance (cm) 3.5 -Undermining/Tunneling No -Circular Undermining No -Wound/Ulcer Outcome Not Healed -Ulcer Cleansing Rinsed/ Irrigated with Saline -Foul Odor after Cleansing No -Bioengineered Tissue No -Type of Bioengineered Tissue Epifix Mesh -Expiration Date 09/11/28 -Product Lot Number [id number] -Percent Used 100 -Lot number of Saline Used [id number] -Bleeding Controlled with Pressure -Treatment Response Procedure Tolerated Well -Debridement - Muscle / Fascia, 1st No 20sq cm -Apply Skin Sub - 1st 25 sq cm - Legs 1 -Epifix Mesh (per sq cm) 11 Pain Scale: 0-10 Numeric Is Patient Pain Free? Yes - Nurse 3 - General Ulcer D/C NN Start: 03/14/24 10:45 Freq: Status: Active Protocol: Activity Type Activity Date Activity User E-sign Co-sign Detail Recorded Client Recorded Date Recorded By Document 03/14/24 11:55 DL [id number] 03/14/24 11:56 DL 03/14/24 11:55 Wound Care Center Nurse 3 #1 R BUTTOCK -Ulcer Cleansing Soap and Water -Foul Odor after Cleansing No -Negative Pressure Wound Therapy Continue -Setting (mmHg) 125 -Negative Pressure is Continuous -Other Dressing epimesh -Other Covering white foam -NPWT Application Charge NPWT & Debridement (nc ) Anne-Wound Care Barrier Treatment Response Procedure Tolerated Well Pain Scale: 0-10 Numeric Is Patient Pain Free? Yes WC - Visit Discharge Discharge Condition Stable Ambulatory Status Ambulatory, Walker Transportation Private [facility] Facility Type Home Health Orders Sent Yes Assessment/Plan Assessment/Plan (1) Infected wound: CODE(S): T14.8XXA - Other injury of unspecified body region, initial encounter; L08.9 - Local infection of the skin and subcutaneous tissue, unspecified (2) Surgical wound, non healing: CODE(S): T81.89XA - Other complications of procedures, not elsewhere classified, initial encounter QUALIFIERS: Encounter type: initial encounter Qualified Code(s): T81.89XA - Other complications of procedures, not elsewhere classified, initial encounter PLAN: EpiFix #7 applied to wound base Wound VAC to right buttocks decrease pressure to 125 mmHg Use only the black foam base and white foam in the tunneling Follow-up in 1 week Patient is to continue eating well high-protein diet and Giuliano drinks. Patient is to continue offloading of the right buttocks Patient is to continue antibiotic therapy for positive culture (3) half-way current use of anticoagulant therapy: CODE(S): Z79.01 - half-way (current) use of anticoagulants PLAN: Patient has been getting his INRs checked weekly and they are 1.9
[2024-03-21 10:46] VITALS: BP 107/62; PULSE 64; RESP 18; TEMP 36.1
--- NOTE | 2024-03-21 12:12 | RAD_ITS ---
STUDY: X-RAY - LUMBAR SPINE REASON FOR EXAM: Male, 73 years old. NONE HEALING WOUND TECHNIQUE: 3 view(s) of the lumbar spine were obtained. COMPARISON: None FINDINGS: Normal lumbar lordosis. There is no substantial scoliosis. There is a 1 cm anterolisthesis of L4 on L5, otherwise normal alignment of the vertebrae. There is multilevel endplate spondylosis of the lumbar vertebrae. There is multi-level degenerative disc disease with multi-level disc space narrowing. There is no demonstrated fracture. The soft tissue structures are unremarkable. RAD/Lumbar Spine 2 or 3 Views IMPRESSION: No acute abnormality. Degenerative changes. Electronically Signed: Codey Alcantar MD at 17:20 EDT ,
--- NOTE | 2024-03-21 12:16 | PCM.WC.PN ---
History of Present Illness Date of Service: 03/21/24 Chief Complaint: Follow-up on right buttocks abscess that opened and is now tunneling. 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 Eventually got worse and was sent to [facility] for surgical debridement and cultures was treated there with PICC line and a wound VAC. He is currently on a wound VAC draining a lot of fluid slight odor but not anything real bad. Does have 2 tunneling areas. He does have history of A-fib and congestive heart failure and had a DVT in the past and is currently on Coumadin. Progress of Wound: So all measurements on the buttocks is smaller shorter tunneling is much better. Patient is still using the wound VAC or still applying EpiFix he will get EpiFix #8 to the wound base area we still have the pressure decreased to 125 patient is tolerant to all Just to make sure that healing will be good we are getting an x-ray of his sacrum coccyx lumbar area. Subjective Subjective and are agreeable to plan they are okay with getting x-ray and they are pleased with outcomes and measurements Objective Data Objective Data Measurements are smaller patient is doing really well he still has a tunneling no bone is able to be touched we will continue the wound VAC at 125 mmHg. 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 Vital Signs: Vital Signs Temp Pulse Resp BP 96.9 F L 64 18 107/62 03/21/24 10:46 03/21/24 10:46 03/21/24 10:46 03/21/24 10:46 Physical Exam Const oriented x3 General Appearance: cooperative Exam Limitations: no limitations HEENT normocephalic Eyes General Eye: normal appearance of both eyes Neck General: normal visual inspection Resp normal respiratory effort Effort and Inspection: able to speak in complete sentences Cardio regular rate and regular rhythm GI Palpation: soft and no hepatosplenomegaly external exam normal Extremity normal to inspection Skin Wounds: wounds noted Wound Narrative: Open wound right buttocks with tunneling x 2 and undermining some odor cultures were obtained Neuro oriented x3 Psych Appearance: grossly normal Speech: normal speech Thought Content: normal thought content Judgement: judgement good Debridement Note Debridement Note Wound debrided: Right buttocks abscess wound Laterality: Right Type of Debridement: Excisional debridement Anesthesia Used: 5% Lidocaine Gel Depth: to muscle Percentage of wound debrided: 100 Instrument Used: 5mm curette Tissue Removed: Fibrin Severity: Fat Layer Exposed Amount of bleeding with debridement: Moderate Bleeding Controlled with: Compression and gauze Patient tolerated procedure: Patient tolerated procedure well Post-Debridement Measurements and Additional Note: Post-Debridement Measurements/Treatment - Nurse 1 - General Ulcer Assessment Start: 03/14/24 10:45 Freq: Status: Active Protocol: [employer] Activity Type Activity Date Activity User E-sign Co-sign Detail Recorded Client Recorded Date Recorded By Document 03/14/24 10:47 DL [id number] 03/14/24 10:57 DL Document 03/21/24 10:46 RB [id number] 03/21/24 10:48 RB 03/14/24 03/21/24 10:47 10:46 - Today's Visit Information Type of service Follow-up Visit Follow-up Visit (Physician/SALES SUPPORT ASSISTANT (Physician/SALES SUPPORT ASSISTANT ) ) Arrival Mode Ambulatory, Ambulatory Walker Transfer Assistance None None Patient Identification Verified (Name & Yes Yes ) Patient Requires Transmission-Based No No Precautions Vital Signs Temperature (97.8 F-99.1 F) 97.4 F L 96.9 F L Temperature Source Temporal Temporal Pulse Rate (60-100) 66 64 Pulse Location Monitor Monitor Respiratory Rate (12-18) 20 H 18 Respiratory rate source Observation Observation Blood Pressure (90/60-120/80) 101/58 L 107/62 Blood Pressure Mean (mm Hg) 72 77 Source Monitor Monitor Position Semi-Fowlers Blood Pressure Location Left Arm History Since Last Visit- (Skip if this is Patient's initial visit) Have you changed medications since your No No last visit? Any new allergies or adverse reactions No No Had a fall/change in ADL's that may No No increase risk of falls Signs or symptoms of abuse and/or No No neglect since last visit Have you been in the hospital since your No No last visit? Has dressing in place as prescribed No Yes Has compression in place as prescribed N/A No Has offloadiing in place as prescribed Yes Yes Experienced any changes in pain level or No No management Pain Scale: 0-10 Numeric Is Patient Pain Free? Yes Yes WC - Nurse 1 - General Ulcer Measurement Start: 03/14/24 10:45 Freq: Status: Active Protocol: Activity Type Activity Date Activity User E-sign Co-sign Detail Recorded Client Recorded Date Recorded By Document 03/14/24 10:47 DL [id number] 03/14/24 10:57 DL Document 03/21/24 10:46 RB [id number] 03/21/24 10:48 RB 03/14/24 03/21/24 10:47 10:46 Wound Center Nurse 1 #1 R BUTTOCK -Combined with other wound No -Current Size (cm) - Length 1.5 1.7 -Current Size (cm) - Width 1 1.5 -Current Size (cm) - Depth 2.5 2.5 -Total Square Cm 1.5 2.55 -Tunneling Yes -Tunneling Position (O'clock) 2 2 -Tunneling Distance (cm) 4.4 4 -Undermining/Tunneling No -Circular Undermining No -Exudate Amt Medium Large -Exudate Type Serosanguineous Serosanguineous -Wound Margin Thickened Thickened & Rolled Under -Granulation Amt Medium (34-66%) Medium (34-66%) -Granulation Quality Red [place] -Slough/Fibrin Yes -Necrosis Amt Medium (34-66%) Medium (34-66%) -Necrotic Tissue Type Adherent Slough Adherent Slough -Structure Exposed N/A N/A -Texture (Anne-wound Skin Appearance) Scarring Assessed, Scarring -Moisture (Anne-wound Skin Appearance) No Abnormality Assessed -Color (Anne-wound Skin Appearance) No Abnormality Assessed -Temperature (Anne-wound Skin No Abnormality No Abnormality Appearance) (Pt Warm) (Pt Warm) -Tenderness on Palpation (Anne-wound No Skin Appearance) -Ulcer Cleansing Soap and Water Wound Cleanser -Foul Odor after Cleansing No No -Anesthetic Used 5% Lidocaine 5% Lidocaine Gel Gel WC - Nurse 2 - General Ulcer CM Notes Start: 03/14/24 10:45 Freq: Status: Active Protocol: Activity Type Activity Date Activity User E-sign Co-sign Detail Recorded Client Recorded Date Recorded By Document 03/14/24 11:16 BMF [id number] 03/14/24 11:27 BMF Document 03/21/24 10:58 [facility] [id number] 03/21/24 11:06 BMF 03/14/24 03/21/24 11:16 10:58 Wound Center Nurse 2 #1 R BUTTOCK -Time 11:17 10:58 -Correct Patient Yes Yes -Correct Side, Site, Position Yes Yes -Correct Procedure Yes Yes -Procedure Performed Yes Yes -Type of Procedure Debridement Debridement -Clinical Debridement Muscle / Fascia Muscle / Fascia -Tissue Removed Muscle,Fascia Muscle,Fascia -Post Debridement (cm) - Length 2.5 1.5 -Post Debridement (cm) - Width 1.8 0.8 -Post Debridement (cm) - Depth 1.4 1.0 -Total Square (Post) (cm) 4.50 1.20 -Area of Debridement (cm) - Length 2.5 1.5 -Area of Debridement (cm) - Width 1.8 0.8 -Total Square (Area) (cm) 4.50 1.20 -Tunneling Yes Yes -Tunneling Position (O'clock) 2 2 -Tunneling Distance (cm) 3.5 3.0 -Undermining/Tunneling No No -Circular Undermining No No -Wound/Ulcer Outcome Not Healed Not Healed -Ulcer Cleansing Rinsed/ Rinsed/ Irrigated with Irrigated with Saline Saline -Foul Odor after Cleansing No No -Bioengineered Tissue No No -Type of Bioengineered Tissue Epifix Mesh Epifix Mesh -Expiration Date 09/11/28 11/12/27 -Product Lot Number [id number] -Percent Used 100 100 -Lot number of Saline Used [id number] -Bleeding Controlled with Pressure Pressure -Treatment Response Procedure Procedure Tolerated Well Tolerated Well -Debridement - Muscle / Fascia, 1st No No 20sq cm -Apply Skin Sub - 1st 25 sq cm - Legs 1 1 -Epifix (per sq cm) 4 -Epifix Mesh (per sq cm) 11 Pain Scale: 0-10 Numeric Is Patient Pain Free? Yes Yes WC - Nurse 3 - General Ulcer D/C NN Start: 03/14/24 10:45 Freq: Status: Active Protocol: Activity Type Activity Date Activity User E-sign Co-sign Detail Recorded Client Recorded Date Recorded By Document 03/14/24 11:55 DL [id number] 03/14/24 11:56 DL Document 03/21/24 11:49 RB [id number] 03/21/24 11:50 RB 03/14/24 03/21/24 11:55 11:49 Wound Care Center Nurse 3 #1 R BUTTOCK -Ulcer Cleansing Soap and Water Rinsed/ Irrigated with Saline -Foul Odor after Cleansing No -Negative Pressure Wound Therapy Continue Continue -Setting (mmHg) 125 125 -Negative Pressure is Continuous Continuous -Other Dressing epimesh white foam to tunnel -Other Covering white foam -NPWT Application Charge NPWT & NPWT & Debridement (nc Debridement (nc ) ) Anne-Wound Care Barrier Barrier Treatment Response Procedure Procedure Tolerated Well Tolerated Well Pain Scale: 0-10 Numeric Is Patient Pain Free? Yes Yes WC - Visit Discharge Discharge Condition Stable Stable Ambulatory Status Ambulatory, Ambulatory, Walker Wheelchair Transportation Private Auto Private Auto Medication Reconcilliation completed & No provided to patient/care provider Clinical Summary of Care Provided Yes Facility Type Home Health Orders Sent Yes Assessment/Plan Assessment/Plan (1) Infected wound: CODE(S): T14.8XXA - Other injury of unspecified body region, initial encounter; L08.9 - Local infection of the skin and subcutaneous tissue, unspecified (2) Surgical wound, non healing: CODE(S): T81.89XA - Other complications of procedures, not elsewhere classified, initial encounter QUALIFIERS: Encounter type: initial encounter Qualified Code(s): T81.89XA - Other complications of procedures, not elsewhere classified, initial encounter PLAN: EpiFix #8 applied to wound base Wound VAC to right buttocks decrease pressure to 125 mmHg Use only the black foam base and white foam in the tunneling Follow-up in 1 week Ordered x-ray of spine lower lumbar and coccyx. Patient is to continue eating well high-protein diet and Giuliano drinks. 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
--- NOTE | 2024-03-21 12:20 | RAD_ITS ---
STUDY: X-RAY - SACRUM/COCCYX REASON FOR EXAM: Male, 73 years old. NON HEALING WOULND TECHNIQUE: 3 view(s) of the sacrum and coccyx were obtained. COMPARISON: None. FINDINGS: Normal bilateral sacroiliac joints. Normal visualized sacral ala and fused sacral bodies. Normal sacrococcygeal junction with a normal angulation. Normal coccygeal segments. The presacral soft tissue structures are unremarkable. There is no demonstrated destructive osseous process. RAD/Sacrum-Coccyx min 2 Views IMPRESSION: No definite acute or significant abnormality seen. Electronically Signed: Codey Alcantar MD at 18:21 EDT ,
[2024-03-28 10:35] VITALS: BP 110/64; PULSE 65; RESP 18; TEMP 35.8
--- NOTE | 2024-03-28 11:35 | PCM.WC.PN ---
History of Present Illness Date of Service: 03/28/24 Chief Complaint: Follow-up on right buttocks abscess that opened and is now tunneling. 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 Eventually got worse and was sent to [facility] for surgical debridement and cultures was treated there with PICC line and a wound VAC. He is currently on a wound VAC draining a lot of fluid slight odor but not anything real bad. Does have 2 tunneling areas. He does have history of A-fib and congestive heart failure and had a DVT in the past and is currently on Coumadin. Progress of Wound: So all measurements on the buttocks is smaller shorter tunneling is much better. A distinct odor coming from the buttocks we will stop the epi this week culture him and then see if he is growing anything to continue the epi fix. We will also increase his compression to 150 this week on his wound VAC. X-ray came back negative for any kind of bony erosion or anything so there is no osteo. Subjective Subjective and are pleased with outcomes Objective Data Objective Data We will continue the wound VAC we obtained cultures we will call them this next week and have them follow-up with someone else's next week as a courtesy visit and then follow him up in 2 weeks. Vital Signs: Vital Signs Temp Pulse Resp BP 96.4 F L 65 18 110/64 03/28/24 10:35 03/28/24 10:35 03/28/24 10:35 03/28/24 10:35 Lab / Micro Data Attestation: I reviewed the patient's lab results. Physical Exam Const oriented x3 General Appearance: cooperative Exam Limitations: no limitations HEENT normocephalic Eyes General Eye: normal appearance of both eyes Neck General: normal visual inspection Resp normal respiratory effort Effort and Inspection: able to speak in complete sentences Cardio regular rate and regular rhythm GI Palpation: soft and no hepatosplenomegaly external exam normal Extremity normal to inspection Skin Wounds: wounds noted Wound Narrative: Open wound right buttocks with tunneling x 2 and undermining some odor cultures were obtained Neuro oriented x3 Psych Appearance: grossly normal Speech: normal speech Thought Content: normal thought content Judgement: judgement good Debridement Note Debridement Note Wound debrided: Right buttocks abscess wound Laterality: Right Type of Debridement: Excisional debridement Anesthesia Used: 5% Lidocaine Gel Depth: to muscle Percentage of wound debrided: 100 Instrument Used: 5mm curette Tissue Removed: Fibrin Severity: Fat Layer Exposed Amount of bleeding with debridement: Moderate Bleeding Controlled with: Compression and gauze Patient tolerated procedure: Patient tolerated procedure well Post-Debridement Measurements and Additional Note: Post-Debridement Measurements/Treatment - Nurse 1 - General Ulcer Assessment Start: 03/14/24 10:45 Freq: Status: Active Protocol: BRIELLE Activity Type Activity Date Activity User E-sign Co-sign Detail Recorded Client Recorded Date Recorded By Document 03/14/24 10:47 DL [id number] 03/14/24 10:57 DL Document 03/21/24 10:46 RB [id number] 03/21/24 10:48 RB Document 03/28/24 10:35 DL [id number] 03/28/24 10:45 DL 03/14/24 03/21/24 03/28/24 10:47 10:46 10:35 - Today's Visit Information Type of service Follow-up Visit Follow-up Visit Follow-up Visit (Physician/LOG COOKER (Physician/LOG COOKER (Physician/LOG COOKER ) ) ) Arrival Mode Ambulatory, Ambulatory Ambulatory, Walker Walker Transfer Assistance None None None Patient Identification Verified (Name & Yes Yes Yes ) Patient Requires Transmission-Based No No No Precautions Vital Signs Temperature (97.8 F-99.1 F) 97.4 F L 96.9 F L 96.4 F L Temperature Source Temporal Temporal Temporal Pulse Rate (60-100) 66 64 65 Pulse Location Monitor Monitor Monitor Respiratory Rate (12-18) 20 H 18 18 Respiratory rate source Observation Observation Observation Blood Pressure (90/60-120/80) 101/58 L 107/62 110/64 Blood Pressure Mean (mm Hg) 72 77 79 Source Monitor Monitor Monitor Position Semi-Fowlers Blood Pressure Location Left Arm History Since Last Visit- (Skip if this is Patient's initial visit) Have you changed medications since your No No No last visit? Any new allergies or adverse reactions No No No Had a fall/change in ADL's that may No No No increase risk of falls Signs or symptoms of abuse and/or No No No neglect since last visit Have you been in the hospital since your No No No last visit? Has dressing in place as prescribed No Yes Yes Has compression in place as prescribed N/A No N/A Has offloadiing in place as prescribed Yes Yes Yes Experienced any changes in pain level or No No No management Pain Scale: 0-10 Numeric Is Patient Pain Free? Yes Yes Yes WC - Nurse 1 - General Ulcer Measurement Start: 03/14/24 10:45 Freq: Status: Active Protocol: Activity Type Activity Date Activity User E-sign Co-sign Detail Recorded Client Recorded Date Recorded By Document 03/14/24 10:47 DL [id number] 03/14/24 10:57 DL Document 03/21/24 10:46 RB [id number] 03/21/24 10:48 RB Document 03/28/24 10:35 DL [id number] 03/28/24 10:45 DL 03/14/24 03/21/24 03/28/24 10:47 10:46 10:35 Wound Center Nurse 1 #1 R BUTTOCK -Combined with other wound No -Current Size (cm) - Length 1.5 1.7 1 -Current Size (cm) - Width 1 1.5 1 -Current Size (cm) - Depth 2.5 2.5 2.1 -Total Square Cm 1.5 2.55 1 -Photo Taken Yes -Tunneling Yes -Tunneling Position (O'clock) 2 2 2 -Tunneling Distance (cm) 4.4 4 1.5 -Undermining/Tunneling No -Circular Undermining No -Exudate Amt Medium Large Small -Exudate Type Serosanguineous Serosanguineous Serosanguineous -Wound Margin Thickened Thickened & Thickened & Rolled Under Rolled Under -Granulation Amt Medium (34-66%) Medium (34-66%) Large (67-100%) -Granulation Quality Red Rudy Rudy,Red -Slough/Fibrin Yes -Necrosis Amt Medium (34-66%) Medium (34-66%) Small (1-33%) -Necrotic Tissue Type Adherent Slough Adherent Slough Adherent Slough -Structure Exposed N/A N/A N/A -Texture (Anne-wound Skin Appearance) Scarring Assessed, Scarring Scarring -Moisture (Anne-wound Skin Appearance) No Abnormality Assessed Maceration -Color (Anne-wound Skin Appearance) No Abnormality Assessed No Abnormality -Temperature (Anne-wound Skin No Abnormality No Abnormality No Abnormality Appearance) (Pt Warm) (Pt Warm) (Pt Warm) -Tenderness on Palpation (Anne-wound No No Skin Appearance) -Ulcer Cleansing Soap and Water Wound Cleanser Soap and Water -Foul Odor after Cleansing No No No -Anesthetic Used 5% Lidocaine 5% Lidocaine 5% Lidocaine Gel Gel Gel WC - Nurse 2 - General Ulcer CM Notes Start: 03/14/24 10:45 Freq: Status: Active Protocol: Activity Type Activity Date Activity User E-sign Co-sign Detail Recorded Client Recorded Date Recorded By Document 03/14/24 11:16 [facility] [id number] 03/14/24 11:27 [facility] Document 03/21/24 10:58 [facility] [id number] 03/21/24 11:06 [facility] Document 03/28/24 10:52 [facility] [id number] 03/28/24 10:57 F 03/14/24 03/21/24 03/28/24 11:16 10:58 10:52 Wound Center Nurse 2 #1 R BUTTOCK -Time 11:17 10:58 10:52 -Correct Patient Yes Yes Yes -Correct Side, Site, Position Yes Yes Yes -Correct Procedure Yes Yes Yes -Procedure Performed Yes Yes Yes -Type of Procedure Debridement Debridement Debridement -Clinical Debridement Muscle / Fascia Muscle / Fascia Muscle / Fascia -Tissue Removed Muscle,Fascia Muscle,Fascia Muscle,Fascia -Post Debridement (cm) - Length 2.5 1.5 1.3 -Post Debridement (cm) - Width 1.8 0.8 0.7 -Post Debridement (cm) - Depth 1.4 1.0 2.4 -Total Square (Post) (cm) 4.50 1.20 0.91 -Area of Debridement (cm) - Length 2.5 1.5 1.3 -Area of Debridement (cm) - Width 1.8 0.8 0.7 -Total Square (Area) (cm) 4.50 1.20 0.91 -Tunneling Yes Yes No -Tunneling Position (O'clock) 2 2 -Tunneling Distance (cm) 3.5 3.0 -Undermining/Tunneling No No No -Circular Undermining No No No -Wound/Ulcer Outcome Not Healed Not Healed Not Healed -Ulcer Cleansing Rinsed/ Rinsed/ Rinsed/ Irrigated with Irrigated with Irrigated with Saline Saline Saline -Foul Odor after Cleansing No No No -Bioengineered Tissue No No No -Type of Bioengineered Tissue Epifix Mesh Epifix Mesh -Expiration Date 09/11/28 11/12/27 -Product Lot Number [id number] -Percent Used 100 100 -Lot number of Saline Used [id number] -Bleeding Controlled with Pressure Pressure Pressure -Treatment Response Procedure Procedure Procedure Tolerated Well Tolerated Well Tolerated Well -Debridement - Muscle / Fascia, 1st No No Yes 20sq cm -Apply Skin Sub - 1st 25 sq cm - Legs 1 1 -Epifix (per sq cm) 4 -Epifix Mesh (per sq cm) 11 Pain Scale: 0-10 Numeric Is Patient Pain Free? Yes Yes Yes - Nurse 3 - General Ulcer D/C NN Start: 03/14/24 10:45 Freq: Status: Active Protocol: Activity Type Activity Date Activity User E-sign Co-sign Detail Recorded Client Recorded Date Recorded By Document 03/14/24 11:55 DL [id number] 03/14/24 11:56 DL Document 03/21/24 11:49 RB [id number] 03/21/24 11:50 RB Document 03/28/24 11:19 DL [id number] 03/28/24 11:20 DL 03/14/24 03/21/24 03/28/24 11:55 11:49 11:19 Wound Care Center Nurse 3 #1 R BUTTOCK -Ulcer Cleansing Soap and Water Rinsed/ Soap and Water Irrigated with Saline -Foul Odor after Cleansing No No -Negative Pressure Wound Therapy Continue Continue Continue -Setting (mmHg) 125 125 150 -Negative Pressure is Continuous Continuous Continuous -Other Dressing epimesh white foam to white foam to tunnel tunnel -Other Covering white foam -NPWT Application Charge NPWT & NPWT & NPWT & Debridement (nc Debridement (nc Debridement (nc ) ) ) Anne-Wound Care Barrier Barrier Treatment Response Procedure Procedure Procedure Tolerated Well Tolerated Well Tolerated Well Pain Scale: 0-10 Numeric Is Patient Pain Free? Yes Yes Yes WC - Visit Discharge Discharge Condition Stable Stable Stable Ambulatory Status Ambulatory, Ambulatory, Ambulatory, Walker Wheelchair Walker Transportation Private Auto Private Auto Private Auto Medication Reconcilliation completed & No provided to patient/care provider Clinical Summary of Care Provided Yes Facility Type Home Health Home Health Orders Sent Yes Yes Assessment/Plan Assessment/Plan (1) Infected wound: CODE(S): T14.8XXA - Other injury of unspecified body region, initial encounter; L08.9 - Local infection of the skin and subcutaneous tissue, unspecified (2) Surgical wound, non healing: CODE(S): T81.89XA - Other complications of procedures, not elsewhere classified, initial encounter QUALIFIERS: Encounter type: initial encounter Qualified Code(s): T81.89XA - Other complications of procedures, not elsewhere classified, initial encounter PLAN: Wash area with antibacterial soap and water apply white foam into the depth and black foam at the opening increase compression 150 mmHg Cultures obtained hold on epi this week Follow-up next week with a courtesy visit (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
[2024-04-04 13:39] VITALS: BP 110/69; PULSE 67; RESP 16; TEMP 36.2
--- NOTE | 2024-04-04 17:30 | PN.PCM_ITS ---
History of Present Illness Date of Service: 04/04/24 Chief Complaint: Follow-up on right buttocks abscess that opened and is now tunneling. 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 Eventually got worse and was sent to [facility] for surgical debridement and cultures was treated there with PICC line and a wound VAC. He is currently on a wound VAC draining a lot of fluid slight odor but not anything real bad. Does have 2 tunneling areas. He does have history of A-fib and congestive heart failure and had a DVT in the past and is currently on Coumadin. Progress of Wound: Courtesy visit for Daniella. Wound culture from 03/28/2024 positive for MRSA and anaerobic cocci. Patient has been taking his doxycycline and his Flagyl that he started Tuesday evening. So he has had a total of a day and a half of these medications. He is receiving EpiFix to this wound, but today we will hold off on that since he is being treated for an infection. We will continue his wound VAC. Overall his ulcer is stable, it is beefy pink. Periwound is clear. Objective Data Objective Data Vital Signs: Vital Signs Temp Pulse Resp BP O2 Del Method 97.1 F L 67 16 110/69 Room Air 04/04/24 13:39 04/04/24 13:39 04/04/24 13:39 04/04/24 13:39 04/04/24 13:39 Oxygen Delivery Method Room Air Lab / Micro Data Micro: Microbiology 03/28/24 15:15 Wound - Buttock Gram Stain - Final 03/28/24 15:15 Wound - Buttock Wound Culture - Final Meth. resistant Staph. aureus 03/28/24 15:15 Wound - Buttock Anaerobic Culture - Final Anaerobic cocci Charges/Coding Procedures Integumentary [id number]: [id number] Yolie musc/fascia 20 sq cm/< Debridement Note Debridement Note Wound debrided: Right buttocks abscess wound Laterality: Right Wound Grade/Stage: Stage IV Type of Debridement: Excisional debridement Anesthesia Used: 5% Lidocaine Gel Depth: Down to and including healthy tissue, in the subcutaneous layer and to muscle Percentage of wound debrided: 100 Instrument Used: 5mm curette Tissue Removed: Nonviable tissue and slough into the muscle. Severity: Fat Layer Exposed Amount of bleeding with debridement: Moderate Bleeding Controlled with: Pressure and Compression and gauze Patient tolerated procedure: Patient tolerated procedure well Post-Debridement Measurements and Additional Note: Post-Debridement Measurements/Treatment WC - Nurse 1 - General Ulcer Assessment Start: 03/14/24 10:45 Freq: Status: Active Protocol: WC.LOWEXT Activity Type Activity Date Activity User E-sign Co-sign Detail Recorded Client Recorded Date Recorded By Document 03/14/24 10:47 DL [id number] 03/14/24 10:57 DL Document 03/21/24 10:46 RB [id number] 03/21/24 10:48 RB Document 03/28/24 10:35 DL [id number] 03/28/24 10:45 DL Document 04/04/24 13:39 CP [id number] 04/04/24 13:44 CP 03/14/24 03/21/24 03/28/24 10:47 10:46 10:35 WC - Today's Visit Information Type of service Follow-up Visit Follow-up Visit Follow-up Visit (Physician/ACCOUNT RECEIVABLE ASSOCIATE (Physician/ACCOUNT RECEIVABLE ASSOCIATE (Physician/ACCOUNT RECEIVABLE ASSOCIATE ) ) ) Arrival Mode Ambulatory, Ambulatory Ambulatory, Walker Walker Transfer Assistance None None None Accompanied by Patient Identification Verified (Name & Yes Yes Yes ) Patient Requires Transmission-Based No No No Precautions Vital Signs Temperature (97.8 F-99.1 F) 97.4 F L 96.9 F L 96.4 F L Temperature Source Temporal Temporal Temporal Pulse Rate (60-100) 66 64 65 Pulse Location Monitor Monitor Monitor Respiratory Rate (12-18) 20 H 18 18 Respiratory rate source Observation Observation Observation Oxygen Delivery Method Blood Pressure (90/60-120/80) 101/58 L 107/62 110/64 Blood Pressure Mean (mm Hg) 72 77 79 Source Monitor Monitor Monitor Position Semi-Fowlers Blood Pressure Location Left Arm History Since Last Visit- (Skip if this is Patient's initial visit) Have you changed medications since your No No No last visit? Any new allergies or adverse reactions No No No Had a fall/change in ADL's that may No No No increase risk of falls Signs or symptoms of abuse and/or No No No neglect since last visit Have you been in the hospital since your No No No last visit? Has dressing in place as prescribed No Yes Yes Has compression in place as prescribed N/A No N/A Has offloadiing in place as prescribed Yes Yes Yes Experienced any changes in pain level or No No No management Left Footwear Right Footwear Pain Scale: 0-10 Numeric Is Patient Pain Free? Yes Yes Yes 04/04/24 13:39 WC - Today's Visit Information Type of service Follow-up Visit (Physician/ACCOUNT RECEIVABLE ASSOCIATE ) Arrival Mode Ambulatory Transfer Assistance None Accompanied by Patient Identification Verified (Name & Yes ) Patient Requires Transmission-Based No Precautions Vital Signs Temperature (97.8 F-99.1 F) 97.1 F L Temperature Source Temporal Pulse Rate (60-100) 67 Pulse Location Monitor Respiratory Rate (12-18) 16 Respiratory rate source Observation Oxygen Delivery Method Room Air Blood Pressure (90/60-120/80) 110/69 Blood Pressure Mean (mm Hg) 82 Source Monitor Position Sitting Blood Pressure Location Right Arm History Since Last Visit- (Skip if this is Patient's initial visit) Have you changed medications since your Yes last visit? Any new allergies or adverse reactions No Had a fall/change in ADL's that may No increase risk of falls Signs or symptoms of abuse and/or No neglect since last visit Have you been in the hospital since your No last visit? Has dressing in place as prescribed Yes Has compression in place as prescribed N/A Has offloadiing in place as prescribed N/A Experienced any changes in pain level or No management Left Footwear Diabetic Shoe Right Footwear Diabetic Shoe Pain Scale: 0-10 Numeric Is Patient Pain Free? Yes - Nurse 1 - General Ulcer Measurement Start: 03/14/24 10:45 Freq: Status: Active Protocol: Activity Type Activity Date Activity User E-sign Co-sign Detail Recorded Client Recorded Date Recorded By Document 03/14/24 10:47 DL [id number] 03/14/24 10:57 DL Document 03/21/24 10:46 RB [id number] 03/21/24 10:48 RB Document 03/28/24 10:35 DL [id number] 03/28/24 10:45 DL Document 04/04/24 13:39 CP [id number] 04/04/24 13:44 CP 03/14/24 03/21/24 03/28/24 10:47 10:46 10:35 Wound Center Nurse 1 #1 R BUTTOCK -Combined with other wound No -Current Size (cm) - Length 1.5 1.7 1 -Current Size (cm) - Width 1 1.5 1 -Current Size (cm) - Depth 2.5 2.5 2.1 -Total Square Cm 1.5 2.55 1 -Photo Taken Yes -Tunneling Yes -Tunneling Position (O'clock) 2 2 2 -Tunneling Distance (cm) 4.4 4 1.5 -Undermining/Tunneling No -Circular Undermining No -Exudate Amt Medium Large Small -Exudate Type Serosanguineous Serosanguineous Serosanguineous -Wound Margin Thickened Thickened & Thickened & Rolled Under Rolled Under -Granulation Amt Medium (34-66%) Medium (34-66%) Large (67-100%) -Granulation Quality Red Waucoma Waucoma,Red -Slough/Fibrin Yes -Necrosis Amt Medium (34-66%) Medium (34-66%) Small (1-33%) -Necrotic Tissue Type Adherent Slough Adherent Slough Adherent Slough -Structure Exposed N/A N/A N/A -Texture (Anne-wound Skin Appearance) Scarring Assessed, Scarring Scarring -Moisture (Anne-wound Skin Appearance) No Abnormality Assessed Maceration -Color (Anne-wound Skin Appearance) No Abnormality Assessed No Abnormality -Temperature (Anne-wound Skin No Abnormality No Abnormality No Abnormality Appearance) (Pt Warm) (Pt Warm) (Pt Warm) -Tenderness on Palpation (Anne-wound No No Skin Appearance) -Ulcer Cleansing Soap and Water Wound Cleanser Soap and Water -Foul Odor after Cleansing No No No -Anesthetic Used 5% Lidocaine 5% Lidocaine 5% Lidocaine Gel Gel Gel 04/04/24 13:39 Wound Center Nurse 1 #1 R BUTTOCK -Combined with other wound No -Current Size (cm) - Length 1.3 -Current Size (cm) - Width 1 -Current Size (cm) - Depth 4 -Total Square Cm 1.3 -Photo Taken -Tunneling -Tunneling Position (O'clock) -Tunneling Distance (cm) -Undermining/Tunneling -Circular Undermining -Exudate Amt Medium -Exudate Type Serosanguineous -Wound Margin Distinct, Outline Attached -Granulation Amt Large (67-100%) -Granulation Quality Waucoma -Slough/Fibrin -Necrosis Amt -Necrotic Tissue Type -Structure Exposed -Texture (Anne-wound Skin Appearance) Assessed, Scarring -Moisture (Anne-wound Skin Appearance) Assessed -Color (Anne-wound Skin Appearance) Assessed -Temperature (Anne-wound Skin No Abnormality Appearance) (Pt Warm) -Tenderness on Palpation (Anne-wound No Skin Appearance) -Ulcer Cleansing Soap and Water -Foul Odor after Cleansing No -Anesthetic Used 5% Lidocaine Gel WC - Nurse 2 - General Ulcer CM Notes Start: 03/14/24 10:45 Freq: Status: Active Protocol: Activity Type Activity Date Activity User E-sign Co-sign Detail Recorded Client Recorded Date Recorded By Document 03/14/24 11:16 [facility] [id number] 03/14/24 11:27 [facility] Document 03/21/24 10:58 [facility] [id number] 03/21/24 11:06 BM Document 03/28/24 10:52 [facility] [id number] 03/28/24 10:57 [facility] Document 04/04/24 14:00 [id number] 04/04/24 14:06 03/14/24 03/21/24 03/28/24 11:16 10:58 10:52 Wound Center Nurse 2 #1 R BUTTOCK -Time 11:17 10:58 10:52 -Correct Patient Yes Yes Yes -Correct Side, Site, Position Yes Yes Yes -Correct Procedure Yes Yes Yes -Procedure Performed Yes Yes Yes -Type of Procedure Debridement Debridement Debridement -Clinical Debridement Muscle / Fascia Muscle / Fascia Muscle / Fascia -Tissue Removed Muscle,Fascia Muscle,Fascia Muscle,Fascia -Post Debridement (cm) - Length 2.5 1.5 1.3 -Post Debridement (cm) - Width 1.8 0.8 0.7 -Post Debridement (cm) - Depth 1.4 1.0 2.4 -Total Square (Post) (cm) 4.50 1.20 0.91 -Area of Debridement (cm) - Length 2.5 1.5 1.3 -Area of Debridement (cm) - Width 1.8 0.8 0.7 -Total Square (Area) (cm) 4.50 1.20 0.91 -Tunneling Yes Yes No -Tunneling Position (O'clock) 2 2 -Tunneling Distance (cm) 3.5 3.0 -Undermining/Tunneling No No No -Circular Undermining No No No -Wound/Ulcer Outcome Not Healed Not Healed Not Healed -Ulcer Cleansing Rinsed/ Rinsed/ Rinsed/ Irrigated with Irrigated with Irrigated with Saline Saline Saline -Foul Odor after Cleansing No No No -Bioengineered Tissue No No No -Type of Bioengineered Tissue Epifix Mesh Epifix Mesh -Expiration Date 09/11/28 11/12/27 -Product Lot Number [id number] -Percent Used 100 100 -Lot number of Saline Used [id number] -Bleeding Controlled with Pressure Pressure Pressure -Treatment Response Procedure Procedure Procedure Tolerated Well Tolerated Well Tolerated Well -Debridement - Muscle / Fascia, 1st No No Yes 20sq cm -Apply Skin Sub - 1st 25 sq cm - Legs 1 1 -Epifix (per sq cm) 4 -Epifix Mesh (per sq cm) 11 Pain Scale: 0-10 Numeric Is Patient Pain Free? Yes Yes Yes 04/04/24 14:00 Wound Center Nurse 2 #1 R BUTTOCK -Time 14:01 -Correct Patient Yes -Correct Side, Site, Position Yes -Correct Procedure Yes -Procedure Performed Yes -Type of Procedure Debridement -Clinical Debridement Muscle / Fascia -Tissue Removed Muscle -Post Debridement (cm) - Length 1.4 -Post Debridement (cm) - Width 1.4 -Post Debridement (cm) - Depth 0.7 -Total Square (Post) (cm) 1.96 -Area of Debridement (cm) - Length 1.4 -Area of Debridement (cm) - Width 1.4 -Total Square (Area) (cm) 1.96 -Tunneling Yes -Tunneling Position (O'clock) 2 -Tunneling Distance (cm) 2.5 -Undermining/Tunneling No -Circular Undermining No -Wound/Ulcer Outcome Not Healed -Ulcer Cleansing Rinsed/ Irrigated with Saline -Foul Odor after Cleansing No -Bioengineered Tissue No -Type of Bioengineered Tissue -Expiration Date -Product Lot Number -Percent Used -Lot number of Saline Used -Bleeding Controlled with Pressure -Treatment Response Procedure Tolerated Well -Debridement - Muscle / Fascia, 1st Yes 20sq cm -Apply Skin Sub - 1st 25 sq cm - Legs -Epifix (per sq cm) -Epifix Mesh (per sq cm) Pain Scale: 0-10 Numeric Is Patient Pain Free? Yes - Nurse 3 - General Ulcer D/C NN Start: 03/14/24 10:45 Freq: Status: Active Protocol: Activity Type Activity Date Activity User E-sign Co-sign Detail Recorded Client Recorded Date Recorded By Document 03/14/24 11:55 DL [id number] 03/14/24 11:56 DL Document 03/21/24 11:49 RB [id number] 03/21/24 11:50 RB Document 03/28/24 11:19 DL [id number] 03/28/24 11:20 DL Document 04/04/24 14:15 KW [id number] 04/04/24 14:16 KW 03/14/24 03/21/24 03/28/24 11:55 11:49 11:19 Wound Care Center Nurse 3 #1 R BUTTOCK -Ulcer Cleansing Soap and Water Rinsed/ Soap and Water Irrigated with Saline -Foul Odor after Cleansing No No -Negative Pressure Wound Therapy Continue Continue Continue -Setting (mmHg) 125 125 150 -Negative Pressure is Continuous Continuous Continuous -Other Dressing epimesh white foam to white foam to tunnel tunnel -Other Covering white foam -NPWT Application Charge NPWT & NPWT & NPWT & Debridement (nc Debridement (nc Debridement (nc ) ) ) Anne-Wound Care Barrier Barrier Treatment Response Procedure Procedure Procedure Tolerated Well Tolerated Well Tolerated Well Pain Scale: 0-10 Numeric Is Patient Pain Free? Yes Yes Yes WC - Visit Discharge Discharge Condition Stable Stable Stable Ambulatory Status Ambulatory, Ambulatory, Ambulatory, Walker Wheelchair Walker Transportation Private Auto Private Auto Private Auto Medication Reconcilliation completed & No provided to patient/care provider Clinical Summary of Care Provided Yes Facility Type Home Health Home Health Orders Sent Yes Yes 04/04/24 14:15 Wound Care Center Nurse 3 #1 R BUTTOCK -Ulcer Cleansing Rinsed/ Irrigated with Saline -Foul Odor after Cleansing -Negative Pressure Wound Therapy Continue -Setting (mmHg) 150 -Negative Pressure is Continuous -Other Dressing white foam to the depth -Other Covering -NPWT Application Charge NPWT & Debridement (nc ) Anne-Wound Care Treatment Response Pain Scale: 0-10 Numeric Is Patient Pain Free? Yes WC - Visit Discharge Discharge Condition Ambulatory Status Transportation Medication Reconcilliation completed & provided to patient/care provider Clinical Summary of Care Provided Facility Type Orders Sent Assessment/Plan Assessment/Plan (1) Infected wound: CODE(S): T14.8XXA - Other injury of unspecified body region, initial encounter; L08.9 - Local infection of the skin and subcutaneous tissue, unspecified (2) Surgical wound, non healing: CODE(S): T81.89XA - Other complications of procedures, not elsewhere classified, initial encounter QUALIFIERS: Encounter type: initial encounter Qualified Code(s): T81.89XA - Other complications of procedures, not elsewhere classified, initial encounter PLAN: This is a courtesy visit for Daniella. Wash area with antibacterial soap and water apply white foam into the depth and black foam at the opening increase compression 150 mmHg. The wound VAC is being changed once a week. Will hold off on the epi fix this week until this wound is properly treated with antibiotics. Continue doxycycline and Flagyl as prescribed for his positive wound cultures for MRSA and anaerobic cocci. Follow-up in 1 week with Daniella. 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
[2024-04-11 10:33] VITALS: BP 119/63; PULSE 62; RESP 16; TEMP 36.7
--- NOTE | 2024-04-11 11:22 | PCM.WC.PN ---
History of Present Illness Date of Service: 04/11/24 Chief Complaint: Follow-up on right buttocks abscess that opened and is now tunneling. 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 Eventually got worse and was sent to [facility] for surgical debridement and cultures was treated there with PICC line and a wound VAC. He is currently on a wound VAC draining a lot of fluid slight odor but not anything real bad. Does have 2 tunneling areas. He does have history of A-fib and congestive heart failure and had a DVT in the past and is currently on Coumadin. Progress of Wound: Wound culture from 03/28/2024 positive for MRSA and anaerobic cocci. Patient has finished his Doxy and is currently just has 6 days of Flagyl left. He is receiving EpiFix to this wound, today we applied #9 to the wound base we will continue his wound VAC at a lower pressure. Overall his ulcer is stable, it is beefy pink. Periwound is clear. He is doing well and is measurements are smaller. Subjective Subjective Family is pleased with outcomes Objective Data Objective Data Will continue the wound VAC at 125 mmHg he received # 9 EpiFix. Tolerating everything very well no odor noted Patient to continue antibiotic therapy for his positive cultures X-rays of spine and coccyx were negative for any osteomyelitis Vital Signs: Vital Signs Temp Pulse Resp BP O2 Del Method 98.1 F 62 16 119/63 Room Air 04/11/24 10:33 04/11/24 10:33 04/11/24 10:33 04/11/24 10:33 04/04/24 13:39 Oxygen Delivery Method Room Air Lab / Micro Data Attestation: I reviewed the patient's lab results. Micro: Microbiology 03/28/24 15:15 Wound - Buttock Gram Stain - Final 03/28/24 15:15 Wound - Buttock Wound Culture - Final Meth. resistant Staph. aureus 03/28/24 15:15 Wound - Buttock Anaerobic Culture - Final Anaerobic cocci Physical Exam Const oriented x3 General Appearance: cooperative Exam Limitations: no limitations HEENT normocephalic Eyes General Eye: normal appearance of both eyes Neck General: normal visual inspection Resp normal respiratory effort Effort and Inspection: able to speak in complete sentences Cardio regular rate and regular rhythm GI Palpation: soft and no hepatosplenomegaly external exam normal Extremity normal to inspection Skin Wounds: wounds noted Wound Narrative: Open wound right buttocks with tunneling x 2 and undermining some odor cultures were obtained Neuro oriented x3 Psych Appearance: grossly normal Speech: normal speech Thought Content: normal thought content Judgement: judgement good Debridement Note Debridement Note Wound debrided: Right buttocks abscess wound Laterality: Right Type of Debridement: Excisional debridement Anesthesia Used: 5% Lidocaine Gel Depth: Down to and including healthy tissue, in the subcutaneous layer and to muscle Percentage of wound debrided: 100 Instrument Used: 5mm curette Tissue Removed: Nonviable tissue and slough into the muscle. Severity: Fat Layer Exposed Amount of bleeding with debridement: Moderate Bleeding Controlled with: Pressure and Compression and gauze Patient tolerated procedure: Patient tolerated procedure well Post-Debridement Measurements and Additional Note: Post-Debridement Measurements/Treatment - Nurse 1 - General Ulcer Assessment Start: 03/14/24 10:45 Freq: Status: Active Protocol: BRIELLE Activity Type Activity Date Activity User E-sign Co-sign Detail Recorded Client Recorded Date Recorded By Document 03/14/24 10:47 DL [id number] 03/14/24 10:57 DL Document 03/21/24 10:46 RB [id number] 03/21/24 10:48 RB Document 03/28/24 10:35 DL [id number] 03/28/24 10:45 DL Document 04/04/24 13:39 CP [id number] 04/04/24 13:44 CP Document 04/11/24 10:33 CP [id number] 04/11/24 10:41 CP 03/14/24 03/21/24 03/28/24 10:47 10:46 10:35 - Today's Visit Information Type of service Follow-up Visit Follow-up Visit Follow-up Visit (Physician/PURCHASING AND CLAIMS SUPERVISOR (Physician/PURCHASING AND CLAIMS SUPERVISOR (Physician/PURCHASING AND CLAIMS SUPERVISOR ) ) ) Arrival Mode Ambulatory, Ambulatory Ambulatory, Walker Walker Transfer Assistance None None None Accompanied by Patient Identification Verified (Name & Yes Yes Yes ) Patient Requires Transmission-Based No No No Precautions Vital Signs Temperature (97.8 F-99.1 F) 97.4 F L 96.9 F L 96.4 F L Temperature Source Temporal Temporal Temporal Pulse Rate (60-100) 66 64 65 Pulse Location Monitor Monitor Monitor Respiratory Rate (12-18) 20 H 18 18 Respiratory rate source Observation Observation Observation Oxygen Delivery Method Blood Pressure (90/60-120/80) 101/58 L 107/62 110/64 Blood Pressure Mean (mm Hg) 72 77 79 Source Monitor Monitor Monitor Position Semi-Fowlers Blood Pressure Location Left Arm History Since Last Visit- (Skip if this is Patient's initial visit) Have you changed medications since your No No No last visit? Any new allergies or adverse reactions No No No Had a fall/change in ADL's that may No No No increase risk of falls Signs or symptoms of abuse and/or No No No neglect since last visit Have you been in the hospital since your No No No last visit? Has dressing in place as prescribed No Yes Yes Has compression in place as prescribed N/A No N/A Has offloadiing in place as prescribed Yes Yes Yes Experienced any changes in pain level or No No No management Left Footwear Right Footwear Pain Scale: 0-10 Numeric Is Patient Pain Free? Yes Yes Yes 04/04/24 04/11/24 13:39 10:33 - Today's Visit Information Type of service Follow-up Visit Follow-up Visit (Physician/PURCHASING AND CLAIMS SUPERVISOR (Physician/PURCHASING AND CLAIMS SUPERVISOR ) ) Arrival Mode Ambulatory Ambulatory, Walker Transfer Assistance None Accompanied by Patient Identification Verified (Name & Yes ) Patient Requires Transmission-Based No No Precautions Vital Signs Temperature (97.8 F-99.1 F) 97.1 F L 98.1 F Temperature Source Temporal Temporal Pulse Rate (60-100) 67 62 Pulse Location Monitor Monitor Respiratory Rate (12-18) 16 16 Respiratory rate source Observation Observation Oxygen Delivery Method Room Air Blood Pressure (90/60-120/80) 110/69 119/63 Blood Pressure Mean (mm Hg) 82 81 Source Monitor Monitor Position Sitting Sitting Blood Pressure Location Right Arm Left Arm History Since Last Visit- (Skip if this is Patient's initial visit) Have you changed medications since your Yes No last visit? Any new allergies or adverse reactions No No Had a fall/change in ADL's that may No No increase risk of falls Signs or symptoms of abuse and/or No No neglect since last visit Have you been in the hospital since your No No last visit? Has dressing in place as prescribed Yes Yes Has compression in place as prescribed N/A N/A Has offloadiing in place as prescribed N/A N/A Experienced any changes in pain level or No No management Left Footwear Diabetic Shoe Right Footwear Diabetic Shoe Pain Scale: 0-10 Numeric Is Patient Pain Free? Yes Yes WC - Nurse 1 - General Ulcer Measurement Start: 03/14/24 10:45 Freq: Status: Active Protocol: Activity Type Activity Date Activity User E-sign Co-sign Detail Recorded Client Recorded Date Recorded By Document 03/14/24 10:47 DL [id number] 03/14/24 10:57 DL Document 03/21/24 10:46 RB [id number] 03/21/24 10:48 RB Document 03/28/24 10:35 DL [id number] 03/28/24 10:45 DL Document 04/04/24 13:39 CP [id number] 04/04/24 13:44 CP Document 04/11/24 10:33 CP [id number] 04/11/24 10:41 CP 03/14/24 03/21/24 03/28/24 10:47 10:46 10:35 Wound Center Nurse 1 #1 R BUTTOCK -Combined with other wound No -Current Size (cm) - Length 1.5 1.7 1 -Current Size (cm) - Width 1 1.5 1 -Current Size (cm) - Depth 2.5 2.5 2.1 -Total Square Cm 1.5 2.55 1 -Photo Taken Yes -Tunneling Yes -Tunneling Position (O'clock) 2 2 2 -Tunneling Distance (cm) 4.4 4 1.5 -Undermining/Tunneling No -Circular Undermining No -Exudate Amt Medium Large Small -Exudate Type Serosanguineous Serosanguineous Serosanguineous -Wound Margin Thickened Thickened & Thickened & Rolled Under Rolled Under -Granulation Amt Medium (34-66%) Medium (34-66%) Large (67-100%) -Granulation Quality Red [place],Red -Slough/Fibrin Yes -Necrosis Amt Medium (34-66%) Medium (34-66%) Small (1-33%) -Necrotic Tissue Type Adherent Slough Adherent Slough Adherent Slough -Structure Exposed N/A N/A N/A -Texture (Anne-wound Skin Appearance) Scarring Assessed, Scarring Scarring -Moisture (Anne-wound Skin Appearance) No Abnormality Assessed Maceration -Color (Anne-wound Skin Appearance) No Abnormality Assessed No Abnormality -Temperature (Anne-wound Skin No Abnormality No Abnormality No Abnormality Appearance) (Pt Warm) (Pt Warm) (Pt Warm) -Tenderness on Palpation (Anne-wound No No Skin Appearance) -Ulcer Cleansing Soap and Water Wound Cleanser Soap and Water -Foul Odor after Cleansing No No No -Anesthetic Used 5% Lidocaine 5% Lidocaine 5% Lidocaine Gel Gel Gel 04/04/24 04/11/24 13:39 10:33 Wound Center Nurse 1 #1 R BUTTOCK -Combined with other wound No -Current Size (cm) - Length 1.3 1.4 -Current Size (cm) - Width 1 0.6 -Current Size (cm) - Depth 4 2.3 -Total Square Cm 1.3 0.84 -Photo Taken Yes -Tunneling -Tunneling Position (O'clock) 2 -Tunneling Distance (cm) 3.4 -Undermining/Tunneling -Circular Undermining -Exudate Amt Medium Small -Exudate Type Serosanguineous Serous -Wound Margin Distinct, Flat & Intact Outline Attached -Granulation Amt Large (67-100%) Large (67-100%) -Granulation Quality [place] -Slough/Fibrin No -Necrosis Amt -Necrotic Tissue Type -Structure Exposed N/A -Texture (Anne-wound Skin Appearance) Assessed, No Abnormality Scarring -Moisture (Anne-wound Skin Appearance) Assessed Maceration -Color (Anne-wound Skin Appearance) Assessed No Abnormality -Temperature (Anne-wound Skin No Abnormality No Abnormality Appearance) (Pt Warm) (Pt Warm) -Tenderness on Palpation (Anne-wound No Skin Appearance) -Ulcer Cleansing Soap and Water Soap and Water -Foul Odor after Cleansing No No -Anesthetic Used 5% Lidocaine Gel WC - Nurse 2 - General Ulcer CM Notes Start: 03/14/24 10:45 Freq: Status: Active Protocol: Activity Type Activity Date Activity User E-sign Co-sign Detail Recorded Client Recorded Date Recorded By Document 03/14/24 11:16 [facility] [id number] 03/14/24 11:27 BM Document 03/21/24 10:58 [facility] [id number] 03/21/24 11:06 BM Document 03/28/24 10:52 [facility] [id number] 03/28/24 10:57 [facility] Document 04/04/24 14:00 [id number] 04/04/24 14:06 Document 04/11/24 11:00 [facility] [id number] 04/11/24 11:12 [facility] 03/14/24 03/21/24 03/28/24 11:16 10:58 10:52 Wound Center Nurse 2 #1 R BUTTOCK -Time 11:17 10:58 10:52 -Correct Patient Yes Yes Yes -Correct Side, Site, Position Yes Yes Yes -Correct Procedure Yes Yes Yes -Procedure Performed Yes Yes Yes -Type of Procedure Debridement Debridement Debridement -Clinical Debridement Muscle / Fascia Muscle / Fascia Muscle / Fascia -Tissue Removed Muscle,Fascia Muscle,Fascia Muscle,Fascia -Post Debridement (cm) - Length 2.5 1.5 1.3 -Post Debridement (cm) - Width 1.8 0.8 0.7 -Post Debridement (cm) - Depth 1.4 1.0 2.4 -Total Square (Post) (cm) 4.50 1.20 0.91 -Area of Debridement (cm) - Length 2.5 1.5 1.3 -Area of Debridement (cm) - Width 1.8 0.8 0.7 -Total Square (Area) (cm) 4.50 1.20 0.91 -Tunneling Yes Yes No -Tunneling Position (O'clock) 2 2 -Tunneling Distance (cm) 3.5 3.0 -Undermining/Tunneling No No No -Circular Undermining No No No -Wound/Ulcer Outcome Not Healed Not Healed Not Healed -Ulcer Cleansing Rinsed/ Rinsed/ Rinsed/ Irrigated with Irrigated with Irrigated with Saline Saline Saline -Foul Odor after Cleansing No No No -Bioengineered Tissue No No No -Type of Bioengineered Tissue Epifix Mesh Epifix Mesh -Expiration Date 09/11/28 11/12/27 -Product Lot Number [id number] -Percent Used 100 100 -Lot number of Saline Used [id number] -Bleeding Controlled with Pressure Pressure Pressure -Treatment Response Procedure Procedure Procedure Tolerated Well Tolerated Well Tolerated Well -Debridement - Muscle / Fascia, 1st No No Yes 20sq cm -Apply Skin Sub - 1st 25 sq cm - Legs 1 1 -Epifix (per sq cm) 4 -Epifix Mesh (per sq cm) 11 Pain Scale: 0-10 Numeric Is Patient Pain Free? Yes Yes Yes 04/04/24 04/11/24 14:00 11:00 Wound Center Nurse 2 #1 R BUTTOCK -Time 14:01 11:01 -Correct Patient Yes Yes -Correct Side, Site, Position Yes Yes -Correct Procedure Yes Yes -Procedure Performed Yes Yes -Type of Procedure Debridement Debridement -Clinical Debridement Muscle / Fascia Muscle / Fascia -Tissue Removed Muscle Muscle,Fascia -Post Debridement (cm) - Length 1.4 1.2 -Post Debridement (cm) - Width 1.4 1 -Post Debridement (cm) - Depth 0.7 1.7 -Total Square (Post) (cm) 1.96 1.2 -Area of Debridement (cm) - Length 1.4 1.2 -Area of Debridement (cm) - Width 1.4 1 -Total Square (Area) (cm) 1.96 1.2 -Tunneling Yes Yes -Tunneling Position (O'clock) 2 2 -Tunneling Distance (cm) 2.5 2.6 -Undermining/Tunneling No No -Circular Undermining No No -Wound/Ulcer Outcome Not Healed Not Healed -Ulcer Cleansing Rinsed/ Rinsed/ Irrigated with Irrigated with Saline Saline -Foul Odor after Cleansing No No -Bioengineered Tissue No No -Type of Bioengineered Tissue Epifix -Expiration Date 09/11/28 -Product Lot Number [id number] -Percent Used 100 -Lot number of Saline Used [id number] -Bleeding Controlled with Pressure Pressure -Treatment Response Procedure Procedure Tolerated Well Tolerated Well -Debridement - Muscle / Fascia, 1st Yes No 20sq cm -Apply Skin Sub - 1st 25 sq cm - Legs 1 -Epifix (per sq cm) 4 -Epifix Mesh (per sq cm) Pain Scale: 0-10 Numeric Is Patient Pain Free? Yes Yes - Nurse 3 - General Ulcer D/C NN Start: 03/14/24 10:45 Freq: Status: Active Protocol: Activity Type Activity Date Activity User E-sign Co-sign Detail Recorded Client Recorded Date Recorded By Document 03/14/24 11:55 DL [id number] 03/14/24 11:56 DL Document 03/21/24 11:49 RB [id number] 03/21/24 11:50 RB Document 03/28/24 11:19 DL [id number] 03/28/24 11:20 DL Document 04/04/24 14:15 KW [id number] 04/04/24 14:16 KW 03/14/24 03/21/24 03/28/24 11:55 11:49 11:19 Wound Care Center Nurse 3 #1 R BUTTOCK -Ulcer Cleansing Soap and Water Rinsed/ Soap and Water Irrigated with Saline -Foul Odor after Cleansing No No -Negative Pressure Wound Therapy Continue Continue Continue -Setting (mmHg) 125 125 150 -Negative Pressure is Continuous Continuous Continuous -Other Dressing epimesh white foam to white foam to tunnel tunnel -Other Covering white foam -NPWT Application Charge NPWT & NPWT & NPWT & Debridement (nc Debridement (nc Debridement (nc ) ) ) Anne-Wound Care Barrier Barrier Treatment Response Procedure Procedure Procedure Tolerated Well Tolerated Well Tolerated Well Pain Scale: 0-10 Numeric Is Patient Pain Free? Yes Yes Yes WC - Visit Discharge Discharge Condition Stable Stable Stable Ambulatory Status Ambulatory, Ambulatory, Ambulatory, Walker Wheelchair Walker Transportation Private Auto Private Auto Private Auto Medication Reconcilliation completed & No provided to patient/care provider Clinical Summary of Care Provided Yes Facility Type Home Health Home Health Orders Sent Yes Yes 04/04/24 14:15 Wound Care Center Nurse 3 #1 R BUTTOCK -Ulcer Cleansing Rinsed/ Irrigated with Saline -Foul Odor after Cleansing -Negative Pressure Wound Therapy Continue -Setting (mmHg) 150 -Negative Pressure is Continuous -Other Dressing white foam to the depth -Other Covering -NPWT Application Charge NPWT & Debridement (nc ) Anne-Wound Care Treatment Response Pain Scale: 0-10 Numeric Is Patient Pain Free? Yes WC - Visit Discharge Discharge Condition Ambulatory Status Transportation Medication Reconcilliation completed & provided to patient/care provider Clinical Summary of Care Provided Facility Type Orders Sent Assessment/Plan Assessment/Plan (1) Infected wound: CODE(S): T14.8XXA - Other injury of unspecified body region, initial encounter; L08.9 - Local infection of the skin and subcutaneous tissue, unspecified (2) Surgical wound, non healing: CODE(S): T81.89XA - Other complications of procedures, not elsewhere classified, initial encounter QUALIFIERS: Encounter type: initial encounter Qualified Code(s): T81.89XA - Other complications of procedures, not elsewhere classified, initial encounter PLAN: EpiFix #9 applied to wound base Wound VAC to right buttocks decrease pressure to 125 mmHg Use only the black foam base and white foam in the tunneling Follow-up in 1 week with another provider Patient is to continue eating well high-protein diet and Giuliano drinks. 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
--- NOTE | 2024-04-12 09:45 | WC ---
PHOTO RIGHT BUTTOCKS 04/11/24
--- NOTE | 2024-04-16 11:24 | WC ---
PHOTO 04/11/24 RIGHT BUTTOCK
== END 2024-04-12 23:59 | disposition home or self-care (01) ==
LOC: WC 10:30
PROVIDERS: PCP Family Medicine; Referring Provider Family Medicine; Visit Provider Nurse Practitioner
DX: T81.89XA Other complications of procedures, not elsewhere classified, initial encounter (principal); L98.419 Non-pressure chronic ulcer of buttock with unspecified severity; Z86.718 Personal history of other venous thrombosis and embolism; Z79.01 Long term (current) use of anticoagulants; L08.9 Local infection of the skin and subcutaneous tissue, unspecified; B95.62 Methicillin resistant Staphylococcus aureus infection as the cause of diseases classified elsewhere
CPT/HCPCS: 11043; 15271; 72100; 72220; 87070; 87075; 87077; 87186; 87205; Q4186

== ENCOUNTER 2024-05-09 10:30 | Outpatient (RCR) | payer MEDICARE, SELFPAY ==
[2024-04-13 00:19] VITALS: BP 135/72; PULSE 76; RESP 18; TEMP 36.6
[2024-04-18 13:08] VITALS: BP 119/67; PULSE 63; RESP 18; TEMP 36.5
--- NOTE | 2024-04-18 16:57 | PN.PCM_ITS ---
History of Present Illness Date of Service: 04/18/24 Chief Complaint: Follow-up on right buttocks abscess that opened and is now tunneling. 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 Eventually got worse and was sent to [facility] for surgical debridement and cultures was treated there with PICC line and a wound VAC. He is currently on a wound VAC draining a lot of fluid slight odor but not anything real bad. Does have 2 tunneling areas. He does have history of A-fib and congestive heart failure and had a DVT in the past and is currently on Coumadin. Progress of Wound: Courtesy visit for Daniella. Right buttock ulcer is smaller with beefy pink ulcer bed. Anne wound is clear. He has completed his antibiotics. He is tolerating wound VAC well. Objective Data Objective Data Vital Signs: Vital Signs Temp Pulse Resp BP 97.7 F L 63 18 119/67 04/18/24 13:08 04/18/24 13:08 04/18/24 13:08 04/18/24 13:08 Charges/Coding Procedures Integumentary 150xxx-152xx: [id number] Skin sub graft trnk/arm/leg Debridement Note Debridement Note Wound debrided: Right buttocks abscess wound Laterality: Right Type of Debridement: Excisional debridement Anesthesia Used: 5% Lidocaine Gel Depth: Down to and including healthy tissue, in the subcutaneous layer and to muscle Percentage of wound debrided: 100 Instrument Used: 5mm curette Tissue Removed: Nonviable tissue and slough into the muscle. Severity: Fat Layer Exposed Amount of bleeding with debridement: Mild Bleeding Controlled with: Pressure and Compression and gauze Patient tolerated procedure: Patient tolerated procedure well Post-Debridement Measurements and Additional Note: Post-Debridement Measurements/Treatment FILIBERTO - Nurse 1 - General Ulcer Assessment Start: 04/18/24 13:08 Freq: Status: Active Protocol: BRIELLE Activity Type Activity Date Activity User E-sign Co-sign Detail Recorded Client Recorded Date Recorded By Document 04/18/24 13:08 DL [id number] 04/18/24 13:14 DL 04/18/24 13:08 FILIBERTO - Today's Visit Information Type of service Follow-up Visit (Physician/ACCOUNTANT CONTROLLER ) Arrival Mode Ambulatory, Walker Transfer Assistance None Patient Identification Verified (Name & Yes ) Patient Requires Transmission-Based No Precautions Vital Signs Temperature (97.8 F-99.1 F) 97.7 F L Temperature Source Temporal Pulse Rate (60-100) 63 Pulse Location Monitor Respiratory Rate (12-18) 18 Respiratory rate source Observation Blood Pressure (90/60-120/80) 119/67 Blood Pressure Mean (mm Hg) 84 Source Monitor History Since Last Visit- (Skip if this is Patient's initial visit) Have you changed medications since your No last visit? Any new allergies or adverse reactions No Had a fall/change in ADL's that may No increase risk of falls Signs or symptoms of abuse and/or No neglect since last visit Have you been in the hospital since your No last visit? Has dressing in place as prescribed Yes Has compression in place as prescribed N/A Has offloadiing in place as prescribed Yes Experienced any changes in pain level or No management Pain Scale: 0-10 Numeric Is Patient Pain Free? Yes WC - Nurse 1 - General Ulcer Measurement Start: 04/18/24 13:08 Freq: Status: Active Protocol: Activity Type Activity Date Activity User E-sign Co-sign Detail Recorded Client Recorded Date Recorded By Document 04/18/24 13:08 DL [id number] 04/18/24 13:14 DL 04/18/24 13:08 Wound Center Nurse 1 #1 R BUTTOCK -Current Size (cm) - Length 1 -Current Size (cm) - Width 0.6 -Current Size (cm) - Depth 1.8 -Total Square Cm 0.6 -Photo Taken Yes -Exudate Amt Small -Exudate Type Serosanguineous -Wound Margin Thickened -Granulation Amt Large (67-100%) -Granulation Quality [place] -Necrosis Amt Small (1-33%) -Necrotic Tissue Type Adherent Slough -Structure Exposed N/A -Texture (Anne-wound Skin Appearance) Scarring -Moisture (Anne-wound Skin Appearance) Maceration -Color (Anne-wound Skin Appearance) No Abnormality -Temperature (Anne-wound Skin No Abnormality Appearance) (Pt Warm) -Tenderness on Palpation (Anne-wound No Skin Appearance) -Ulcer Cleansing Soap and Water -Foul Odor after Cleansing No -Anesthetic Used 5% Lidocaine Gel WC - Nurse 2 - General Ulcer CM Notes Start: 04/18/24 13:08 Freq: Status: Active Protocol: Activity Type Activity Date Activity User E-sign Co-sign Detail Recorded Client Recorded Date Recorded By Document 04/18/24 13:34 [id number] 04/18/24 13:46 04/18/24 13:34 Wound Center Nurse 2 -Time 13:34 -Correct Patient Yes -Correct Side, Site, Position Yes -Correct Procedure Yes -Procedure Performed Yes -Type of Procedure Debridement -Clinical Debridement Subcutaneous -Tissue Removed Subcutaneous -Post Debridement (cm) - Length 1.2 -Post Debridement (cm) - Width 0.8 -Post Debridement (cm) - Depth 0.3 -Total Square (Post) (cm) 0.96 -Area of Debridement (cm) - Length 1.2 -Area of Debridement (cm) - Width 0.8 -Total Square (Area) (cm) 0.96 -Tunneling No -Undermining/Tunneling No -Circular Undermining No -Wound/Ulcer Outcome Not Healed -Ulcer Cleansing Rinsed/ Irrigated with Saline -Foul Odor after Cleansing No -Bioengineered Tissue Yes -Type of Bioengineered Tissue Epifix -Expiration Date 09/11/28 -Product Lot Number [id number] -Percent Used 100 -Lot number of Saline Used [id number] -Bleeding Controlled with Pressure -Treatment Response Procedure Tolerated Well -Assistive Device(s) Walker -Debridement - Subq, 1st 20sq cm No -Apply Skin Sub - 1st 25 sq cm - Legs 1 -Epifix (per sq cm) 4 Pain Scale: 0-10 Numeric Is Patient Pain Free? Yes - Nurse 3 - General Ulcer D/C NN Start: 04/18/24 13:08 Freq: Status: Active Protocol: Activity Type Activity Date Activity User E-sign Co-sign Detail Recorded Client Recorded Date Recorded By Document 04/18/24 13:51 KW [id number] 04/18/24 13:51 04/18/24 13:51 Wound Care Center Nurse 3 #1 R BUTTOCK -Negative Pressure Wound Therapy Continue -Setting (mmHg) 125 -Negative Pressure is Continuous -NPWT Application Charge NPWT & Debridement (nc ) Pain Scale: 0-10 Numeric Is Patient Pain Free? Yes - Visit Discharge Discharge Condition Stable Assessment/Plan Assessment/Plan (1) Infected wound: CODE(S): T14.8XXA - Other injury of unspecified body region, initial encounter; L08.9 - Local infection of the skin and subcutaneous tissue, unspecified (2) Surgical wound, non healing: CODE(S): T81.89XA - Other complications of procedures, not elsewhere classified, initial encounter QUALIFIERS: Encounter type: initial encounter Qualified Code(s): T81.89XA - Other complications of procedures, not elsewhere classified, initial encounter PLAN: EpiFix #10 applied to wound base. 100% of product used. Wound veil placed over ulcer and secured with steri strips. Wound VAC to right buttocks decrease pressure to 125 mmHg with black foam. Follow-up in 1 week with Daniella. Patient is to continue eating well high-protein diet and Giuliano drinks. Patient is to continue offloading of the right buttocks Patient completed antibiotics for his positive wound cultures. 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
[2024-04-25 10:41] VITALS: BP 113/64; PULSE 65; RESP 16; TEMP 36.3
--- NOTE | 2024-04-25 12:06 | PCM.WC.PN ---
History of Present Illness Date of Service: 04/25/24 Chief Complaint: Follow-up on right buttocks abscess that opened and is now tunneling. 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 Eventually got worse and was sent to [facility] for surgical debridement and cultures was treated there with PICC line and a wound VAC. He is currently on a wound VAC draining a lot of fluid slight odor but not anything real bad. Does have 2 tunneling areas. He does have history of A-fib and congestive heart failure and had a DVT in the past and is currently on Coumadin. Progress of Wound: Today the wound is almost closed. The area is much improved from 2 weeks ago that I saw him even from last week it is more of a impression and there then a tunneling. We are going to try taking the wound VAC off and giving him a week vacation and try just placing fibber call and they are moistened with a dressing over top for a week. Patient and are very happy. If he is healing with just the Fibracol we will stop the wound VAC at that point but we will have them bring it again next week and she is to keep it charged. Surrounding skin looks perfect it looks like normal skin he does have that dimpling affect but that will eventually heal around the wound but the wound itself looks good there is no odor noted. He received his last epi fix last week and tolerated it well for healing Subjective Subjective Patient and are very happy with outcomes he may shower now he is happy Objective Data Objective Data Patient healed quite a bit this last time with the wound VAC will give him a wound VAC vacation of the week and try packing with moistened fibrocol and cover with gauze Patient is to continue offloading and he may shower at this time and then do dressing changes will be daily I will see him in 1 week. Vital Signs: Vital Signs Temp Pulse Resp BP O2 Del Method 97.3 F L 65 16 113/64 Room Air 04/25/24 10:41 04/25/24 10:41 04/25/24 10:41 04/25/24 10:41 04/25/24 10:41 Oxygen Delivery Method Room Air Lab / Micro Data Attestation: I reviewed the patient's lab results. Physical Exam Const oriented x3 General Appearance: cooperative Exam Limitations: no limitations HEENT normocephalic Eyes General Eye: normal appearance of both eyes Neck General: normal visual inspection Resp normal respiratory effort Effort and Inspection: able to speak in complete sentences Cardio regular rate and regular rhythm GI Palpation: soft and no hepatosplenomegaly external exam normal Extremity normal to inspection Skin Wounds: wounds noted Wound Narrative: Open wound right buttocks with tunneling x 2 and undermining some odor cultures were obtained Neuro oriented x3 Psych Appearance: grossly normal Speech: normal speech Thought Content: normal thought content Judgement: judgement good Debridement Note Debridement Note Wound debrided: Right buttocks abscess wound Laterality: Right Type of Debridement: Excisional debridement Anesthesia Used: 5% Lidocaine Gel Depth: Down to and including healthy tissue, in the subcutaneous layer and to muscle Percentage of wound debrided: 100 Instrument Used: 3mm curette Tissue Removed: Nonviable tissue and slough into the muscle. Severity: Fat Layer Exposed Amount of bleeding with debridement: None Bleeding Controlled with: Pressure and Compression and gauze Patient tolerated procedure: Patient tolerated procedure well Post-Debridement Measurements and Additional Note: Post-Debridement Measurements/Treatment - Nurse 1 - General Ulcer Assessment Start: 04/18/24 13:08 Freq: Status: Active Protocol: BRIELLE Activity Type Activity Date Activity User E-sign Co-sign Detail Recorded Client Recorded Date Recorded By Document 04/18/24 13:08 DL [id number] 04/18/24 13:14 DL Document 04/25/24 10:41 CP [id number] 04/25/24 10:43 CP 04/18/24 04/25/24 13:08 10:41 - Today's Visit Information Type of service Follow-up Visit Follow-up Visit (Physician/TECHNICAL DESIGNER (Physician/TECHNICAL DESIGNER ) ) Arrival Mode Ambulatory, Ambulatory, Walker Walker Transfer Assistance None Patient Identification Verified (Name & Yes Yes ) Patient Requires Transmission-Based No No Precautions Safety Precautions Fall Prevention Vital Signs Temperature (97.8 F-99.1 F) 97.7 F L 97.3 F L Temperature Source Temporal Temporal Pulse Rate (60-100) 63 65 Pulse Location Monitor Monitor Respiratory Rate (12-18) 18 16 Respiratory rate source Observation Observation Oxygen Delivery Method Room Air Blood Pressure (90/60-120/80) 119/67 113/64 Blood Pressure Mean (mm Hg) 84 80 Source Monitor Monitor Position Sitting Blood Pressure Location Right Arm History Since Last Visit- (Skip if this is Patient's initial visit) Have you changed medications since your No No last visit? Any new allergies or adverse reactions No No Had a fall/change in ADL's that may No No increase risk of falls Signs or symptoms of abuse and/or No No neglect since last visit Have you been in the hospital since your No No last visit? Has dressing in place as prescribed Yes Yes Has compression in place as prescribed N/A N/A Has offloadiing in place as prescribed Yes N/A Experienced any changes in pain level or No No management Pain Scale: 0-10 Numeric Is Patient Pain Free? Yes Yes WC - Nurse 1 - General Ulcer Measurement Start: 04/18/24 13:08 Freq: Status: Active Protocol: Activity Type Activity Date Activity User E-sign Co-sign Detail Recorded Client Recorded Date Recorded By Document 04/18/24 13:08 DL [id number] 04/18/24 13:14 DL Document 04/25/24 10:41 CP [id number] 04/25/24 10:43 CP 04/18/24 04/25/24 13:08 10:41 Wound Center Nurse 1 #1 R BUTTOCK -Current Size (cm) - Length 1 0.7 -Current Size (cm) - Width 0.6 0.5 -Current Size (cm) - Depth 1.8 1 -Total Square Cm 0.6 0.35 -Photo Taken Yes -Exudate Amt Small -Exudate Type Serosanguineous -Wound Margin Thickened -Granulation Amt Large (67-100%) Large (67-100%) -Granulation Quality [place] -Necrosis Amt Small (1-33%) -Necrotic Tissue Type Adherent Slough -Structure Exposed N/A -Texture (Anen-wound Skin Appearance) Scarring -Moisture (Anne-wound Skin Appearance) Maceration Maceration -Color (Anne-wound Skin Appearance) No Abnormality No Abnormality -Temperature (Anne-wound Skin No Abnormality No Abnormality Appearance) (Pt Warm) (Pt Warm) -Tenderness on Palpation (Anne-wound No Skin Appearance) -Ulcer Cleansing Soap and Water Soap and Water -Foul Odor after Cleansing No No -Anesthetic Used 5% Lidocaine 4% Lidocaine Gel Solution WC - Nurse 2 - General Ulcer CM Notes Start: 04/18/24 13:08 Freq: Status: Active Protocol: Activity Type Activity Date Activity User E-sign Co-sign Detail Recorded Client Recorded Date Recorded By Document 04/18/24 13:34 [id number] 04/18/24 13:46 Document 04/25/24 10:48 [facility] [id number] 04/25/24 10:55 [facility] 04/18/24 04/25/24 13:34 10:48 Wound Center Nurse 2 #1 R BUTTOCK -Time 13:34 10:48 -Correct Patient Yes Yes -Correct Side, Site, Position Yes Yes -Correct Procedure Yes Yes -Procedure Performed Yes Yes -Type of Procedure Debridement Debridement -Clinical Debridement Subcutaneous Muscle / Fascia -Tissue Removed Subcutaneous Muscle -Post Debridement (cm) - Length 1.2 0.7 -Post Debridement (cm) - Width 0.8 0.4 -Post Debridement (cm) - Depth 0.3 1.3 -Total Square (Post) (cm) 0.96 0.28 -Area of Debridement (cm) - Length 1.2 0.7 -Area of Debridement (cm) - Width 0.8 0.4 -Total Square (Area) (cm) 0.96 0.28 -Tunneling No No -Undermining/Tunneling No No -Circular Undermining No No -Wound/Ulcer Outcome Not Healed Not Healed -Ulcer Cleansing Rinsed/ Rinsed/ Irrigated with Irrigated with Saline Saline -Foul Odor after Cleansing No No -Bioengineered Tissue Yes No -Type of Bioengineered Tissue Epifix -Expiration Date 09/11/28 -Product Lot Number [id number] -Percent Used 100 -Lot number of Saline Used [id number] -Bleeding Controlled with Pressure Pressure -Treatment Response Procedure Procedure Tolerated Well Tolerated Well -Assistive Device(s) Walker -Debridement - Subq, 1st 20sq cm No -Debridement - Muscle / Fascia, 1st Yes 20sq cm -Apply Skin Sub - 1st 25 sq cm - Legs 1 -Epifix (per sq cm) 4 Pain Scale: 0-10 Numeric Is Patient Pain Free? Yes Yes WC - Nurse 3 - General Ulcer D/C NN Start: 04/18/24 13:08 Freq: Status: Active Protocol: Activity Type Activity Date Activity User E-sign Co-sign Detail Recorded Client Recorded Date Recorded By Document 04/18/24 13:51 KW [id number] 04/18/24 13:51 Document 04/25/24 11:15 CP [id number] 04/25/24 11:16 CP 04/18/24 04/25/24 13:51 11:15 Wound Care Center Nurse 3 #1 R BUTTOCK -Ulcer Cleansing Rinsed/ Irrigated with Saline -Foul Odor after Cleansing No -Negative Pressure Wound Therapy Continue -Setting (mmHg) 125 -Negative Pressure is Continuous -Primary Dressing Applied Promogran -Primary Dressing Covered/Secured with Dry Gauze, Secured with Tape -NPWT Application Charge NPWT & Debridement (nc ) -Promogran 1 Treatment Response Procedure Tolerated Well Pain Scale: 0-10 Numeric Is Patient Pain Free? Yes Yes WC - Visit Discharge Discharge Condition Stable Stable Ambulatory Status Ambulatory, Walker Medication Reconcilliation completed & Yes provided to patient/care provider Assessment/Plan Assessment/Plan (1) Infected wound: CODE(S): T14.8XXA - Other injury of unspecified body region, initial encounter; L08.9 - Local infection of the skin and subcutaneous tissue, unspecified (2) Surgical wound, non healing: CODE(S): T81.89XA - Other complications of procedures, not elsewhere classified, initial encounter QUALIFIERS: Encounter type: initial encounter Qualified Code(s): T81.89XA - Other complications of procedures, not elsewhere classified, initial encounter PLAN: Holiday from the VAC machine and we will start packing with fibrocol moistened with gauze covering it with ABD on top. Every day Follow-up in 1 week Patient is to continue eating well high-protein diet and Giuliano drinks. 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
[2024-05-02 09:40] VITALS: RESP 16
--- NOTE | 2024-05-02 12:05 | PN.PCM_ITS ---
History of Present Illness Date of Service: 05/02/24 Chief Complaint: Follow-up on right buttocks abscess that opened and is now tunneling. 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 Eventually got worse and was sent to [facility] for surgical debridement and cultures was treated there with PICC line and a wound VAC. He is currently on a wound VAC draining a lot of fluid slight odor but not anything real bad. Does have 2 tunneling areas. He does have history of A-fib and congestive heart failure and had a DVT in the past and is currently on Coumadin. Progress of Wound: Today the wound is the same as it was last week and measurements with a week off of the wound VAC. It still almost closed doing well but we would like to get it closed within the next week and reapplying the wound VAC at 150 mmHg. Surrounding skin looks perfect it looks like normal skin he does have that dim pling affect but that will eventually heal around the wound but the wound itself looks good there is no odor noted. He received his last epi fix last week and tolerated it well for healing Subjective Subjective Patient and family are agreeable to plan Objective Data Objective Data Debrided the area for bloody discharge did well measurements are exactly the same as last week so we will reapply wound VAC at 150 mmHg to see if we can close it. Patient is to continue his Giuliano supplements Vital Signs: Vital Signs Temp Pulse Resp BP O2 Del Method 97.3 F L 65 16 113/64 Room Air 04/25/24 10:41 04/25/24 10:41 05/02/24 09:40 04/25/24 10:41 05/02/24 09:40 Oxygen Delivery Method Room Air Lab / Micro Data Attestation: I reviewed the patient's lab results. Physical Exam Const oriented x3 General Appearance: cooperative Exam Limitations: no limitations HEENT normocephalic Eyes General Eye: normal appearance of both eyes Neck General: normal visual inspection Resp normal respiratory effort Effort and Inspection: able to speak in complete sentences Cardio regular rate and regular rhythm GI Palpation: soft and no hepatosplenomegaly external exam normal Extremity normal to inspection Skin Wounds: wounds noted Wound Narrative: Open wound right buttocks with tunneling x 2 and undermining some odor cultures were obtained Neuro oriented x3 Psych Appearance: grossly normal Speech: normal speech Thought Content: normal thought content Judgement: judgement good Debridement Note Debridement Note Wound debrided: Right buttocks abscess wound Laterality: Right Type of Debridement: Excisional debridement Anesthesia Used: 5% Lidocaine Gel Depth: Down to and including healthy tissue, in the subcutaneous layer and to muscle Percentage of wound debrided: 100 Instrument Used: 3mm curette Tissue Removed: Nonviable tissue and slough into the muscle. Severity: Fat Layer Exposed Amount of bleeding with debridement: None Bleeding Controlled with: Pressure and Compression and gauze Patient tolerated procedure: Patient tolerated procedure well Post-Debridement Measurements and Additional Note: Post-Debridement Measurements/Treatment - Nurse 1 - General Ulcer Assessment Start: 04/18/24 13:08 Freq: Status: Active Protocol: BRIELLE Activity Type Activity Date Activity User E-sign Co-sign Detail Recorded Client Recorded Date Recorded By Document 04/18/24 13:08 DL [id number] 04/18/24 13:14 DL Document 04/25/24 10:41 CP [id number] 04/25/24 10:43 CP Document 05/02/24 09:40 BMF [id number] 05/02/24 09:48 BMF 04/18/24 04/25/24 05/02/24 13:08 10:41 09:40 - Today's Visit Information Type of service Follow-up Visit Follow-up Visit Follow-up Visit (Physician/HIDE AND 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 (Physician/HIDE AND 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 (Physician/HIDE AND 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 ) ) ) Arrival Mode Ambulatory, Ambulatory, Ambulatory,Cane Walker Walker Transfer Assistance None None Accompanied by AND DAUGHTER Patient Identification Verified (Name & Yes Yes Yes ) Patient Requires Transmission-Based No No No Precautions Safety Precautions Fall Prevention Vital Signs Temperature (97.8 F-99.1 F) 97.7 F L 97.3 F L Temperature Source Temporal Temporal Temporal Pulse Rate (60-100) 63 65 Pulse Location Monitor Monitor Monitor Respiratory Rate (12-18) 18 16 16 Respiratory rate source Observation Observation Observation Oxygen Delivery Method Room Air Room Air Blood Pressure (90/60-120/80) 119/67 113/64 Blood Pressure Mean (mm Hg) 84 80 Source Monitor Monitor Monitor Position Sitting Sitting Blood Pressure Location Right Arm Left Arm History Since Last Visit- (Skip if this is Patient's initial visit) Have you changed medications since your No No No last visit? Any new allergies or adverse reactions No No No Had a fall/change in ADL's that may No No No increase risk of falls Signs or symptoms of abuse and/or No No No neglect since last visit Have you been in the hospital since your No No No last visit? Has dressing in place as prescribed Yes Yes Yes Has compression in place as prescribed N/A N/A N/A Has offloadiing in place as prescribed Yes N/A N/A Experienced any changes in pain level or No No No management Left Footwear Regular Shoe Right Footwear Regular Shoe Pain Scale: 0-10 Numeric Is Patient Pain Free? Yes Yes Yes WC - Nurse 1 - General Ulcer Measurement Start: 04/18/24 13:08 Freq: Status: Active Protocol: Activity Type Activity Date Activity User E-sign Co-sign Detail Recorded Client Recorded Date Recorded By Document 04/18/24 13:08 DL [id number] 04/18/24 13:14 DL Document 04/25/24 10:41 CP [id number] 04/25/24 10:43 CP Document 05/02/24 09:40 BMF [id number] 05/02/24 09:48 BMF 04/18/24 04/25/24 05/02/24 13:08 10:41 09:40 Wound Center Nurse 1 #1 R BUTTOCK -Combined with other wound No -Current Size (cm) - Length 1 0.7 0.6 -Current Size (cm) - Width 0.6 0.5 0.4 -Current Size (cm) - Depth 1.8 1 1 -Total Square Cm 0.6 0.35 0.24 -Date of Last Picture (Recall this 05/02/24 field) -Photo Taken Yes Yes -Epithelialization Small 1-33% -Exudate Amt Small Medium -Exudate Type Serosanguineous Serosanguineous -Wound Margin Thickened Distinct, Outline Attached -Granulation Amt Large (67-100%) Large (67-100%) Large (67-100%) -Granulation Quality [place] -Necrosis Amt Small (1-33%) -Necrotic Tissue Type Adherent Slough -Structure Exposed N/A -Texture (Anne-wound Skin Appearance) Scarring Assessed -Moisture (Anne-wound Skin Appearance) Maceration Maceration Assessed -Color (Anne-wound Skin Appearance) No Abnormality No Abnormality Assessed -Temperature (Anne-wound Skin No Abnormality No Abnormality No Abnormality Appearance) (Pt Warm) (Pt Warm) (Pt Warm) -Tenderness on Palpation (Anne-wound No No Skin Appearance) -Ulcer Cleansing Soap and Water Soap and Water Soap and Water -Foul Odor after Cleansing No No No -Anesthetic Used 5% Lidocaine 4% Lidocaine 5% Lidocaine Gel Solution Gel WC - Nurse 2 - General Ulcer CM Notes Start: 04/18/24 13:08 Freq: Status: Active Protocol: Activity Type Activity Date Activity User E-sign Co-sign Detail Recorded Client Recorded Date Recorded By Document 04/18/24 13:34 [id number] 04/18/24 13:46 Document 04/25/24 10:48 [facility] [id number] 04/25/24 10:55 [facility] Document 05/02/24 10:05 [facility] [id number] 05/02/24 10:11 [facility] 04/18/24 04/25/24 05/02/24 13:34 10:48 10:05 Wound Center Nurse 2 #1 R BUTTOCK -Time 13:34 10:48 10:05 -Correct Patient Yes Yes Yes -Correct Side, Site, Position Yes Yes Yes -Correct Procedure Yes Yes Yes -Procedure Performed Yes Yes Yes -Type of Procedure Debridement Debridement Debridement -Clinical Debridement Subcutaneous Muscle / Fascia Muscle / Fascia -Tissue Removed Subcutaneous Muscle Muscle,Fascia -Post Debridement (cm) - Length 1.2 0.7 0.5 -Post Debridement (cm) - Width 0.8 0.4 0.2 -Post Debridement (cm) - Depth 0.3 1.3 1.6 -Total Square (Post) (cm) 0.96 0.28 0.10 -Area of Debridement (cm) - Length 1.2 0.7 0.5 -Area of Debridement (cm) - Width 0.8 0.4 0.2 -Total Square (Area) (cm) 0.96 0.28 0.10 -Tunneling No No No -Undermining/Tunneling No No No -Circular Undermining No No No -Wound/Ulcer Outcome Not Healed Not Healed Not Healed -Ulcer Cleansing Rinsed/ Rinsed/ Rinsed/ Irrigated with Irrigated with Irrigated with Saline Saline Saline -Foul Odor after Cleansing No No No -Bioengineered Tissue Yes No -Type of Bioengineered Tissue Epifix -Expiration Date 09/11/28 -Product Lot Number [id number] -Percent Used 100 -Lot number of Saline Used [id number] -Bleeding Controlled with Pressure Pressure Pressure -Treatment Response Procedure Procedure Procedure Tolerated Well Tolerated Well Tolerated Well -Assistive Device(s) Walker -Debridement - Subq, 1st 20sq cm No -Debridement - Muscle / Fascia, 1st Yes Yes 20sq cm -Apply Skin Sub - 1st 25 sq cm - Legs 1 -Epifix (per sq cm) 4 Pain Scale: 0-10 Numeric Is Patient Pain Free? Yes Yes Yes - Nurse 3 - General Ulcer D/C NN Start: 04/18/24 13:08 Freq: Status: Active Protocol: Activity Type Activity Date Activity User E-sign Co-sign Detail Recorded Client Recorded Date Recorded By Document 04/18/24 13:51 KW [id number] 04/18/24 13:51 KW Document 04/25/24 11:15 CP [id number] 04/25/24 11:16 CP Document 05/02/24 10:30 BMF [id number] 05/02/24 10:31 BMF 04/18/24 04/25/24 05/02/24 13:51 11:15 10:30 Wound Care Center Nurse 3 #1 R BUTTOCK -Ulcer Cleansing Rinsed/ Rinsed/ Irrigated with Irrigated with Saline Saline -Foul Odor after Cleansing No No -Negative Pressure Wound Therapy Continue Continue -Setting (mmHg) 125 150 -Negative Pressure is Continuous Continuous -Primary Dressing Applied Promogran -Primary Dressing Covered/Secured with Dry Gauze, Secured with Tape -NPWT Application Charge NPWT & NPWT & Debridement (nc Debridement (nc ) ) -Promogran 1 Treatment Response Procedure Procedure Tolerated Well Tolerated Well Pain Scale: 0-10 Numeric Is Patient Pain Free? 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 Patient is to follow-up in 1 week He is to continue taking his Giuliano and supplements as as he has been high- protein diet and offloading.
--- NOTE | 2024-05-03 08:45 | WC ---
PHOTO 05/02/24 RIGHT BUTTOCKS
[2024-05-09 10:33] VITALS: BP 105/49; PULSE 62; RESP 18; TEMP 36.1
--- NOTE | 2024-05-09 12:13 | PN.PCM_ITS ---
History of Present Illness Date of Service: 05/09/24 Chief Complaint: Follow-up on right buttocks abscess that opened and is now tunneling. 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 Eventually got worse and was sent to [facility] for surgical debridement and cultures was treated there with PICC line and a wound VAC. He is currently on a wound VAC draining a lot of fluid slight odor but not anything real bad. Does have 2 tunneling areas. He does have history of A-fib and congestive heart failure and had a DVT in the past and is currently on Coumadin. Progress of Wound: Today the wound healed with the wound VAC. He does have a divot in there but he is completely closed skin is very good and nutritious and he has no break in skin integrity at all. Subjective Subjective and are very thankful that it is over and she will return the machine to the company. Objective Data Objective Data The buttocks ulcer from his surgical wound nonhealing is healed closed with the wound VAC and will no longer need to be seen or have a dressing. Vital Signs: Vital Signs Temp Pulse Resp BP O2 Del Method 97 F L 62 18 105/49 L Room Air 05/09/24 10:33 05/09/24 10:33 05/09/24 10:33 05/09/24 10:33 05/09/24 10:33 Oxygen Delivery Method Room Air Physical Exam Const oriented x3 General Appearance: cooperative Exam Limitations: no limitations HEENT normocephalic Eyes General Eye: normal appearance of both eyes Neck General: normal visual inspection Resp normal respiratory effort Effort and Inspection: able to speak in complete sentences Cardio regular rate and regular rhythm GI Palpation: soft and no hepatosplenomegaly external exam normal Extremity normal to inspection Skin Wound Narrative: Open wound resolved and closed and healed Neuro oriented x3 Psych Appearance: grossly normal Speech: normal speech Thought Content: normal thought content Judgement: judgement good Debridement Note Debridement Note No debridement was completed: No debridement was completed today Post-Debridement Measurements and Additional Note: Post-Debridement Measurements/Treatment [id number] - Nurse 1 - General Ulcer Assessment Start: 04/18/24 13:08 Freq: Status: Active Protocol: WC.LOWEXT Activity Type Activity Date Activity User E-sign Co-sign Detail Recorded Client Recorded Date Recorded By Document 04/18/24 13:08 DL [id number] 04/18/24 13:14 DL Document 04/25/24 10:41 CP [id number] 04/25/24 10:43 CP Document 05/02/24 09:40 BMF [id number] 05/02/24 09:48 BMF Document 05/09/24 10:33 MT [id number] 05/09/24 10:36 MT 04/18/24 04/25/24 05/02/24 13:08 10:41 09:40 - Today's Visit Information Type of service Follow-up Visit Follow-up Visit Follow-up Visit (Physician/INSTRUMENTATION INSTRUCTOR (Physician/INSTRUMENTATION INSTRUCTOR (Physician/INSTRUMENTATION INSTRUCTOR ) ) ) Arrival Mode Ambulatory, Ambulatory, Ambulatory,Cane Walker Walker Transfer Assistance None None Accompanied by AND DAUGHTER Patient Identification Verified (Name & Yes Yes Yes ) Patient Requires Transmission-Based No No No Precautions Safety Precautions Fall Prevention Vital Signs Temperature (97.8 F-99.1 F) 97.7 F L 97.3 F L Temperature Source Temporal Temporal Temporal Pulse Rate (60-100) 63 65 Pulse Location Monitor Monitor Monitor Respiratory Rate (12-18) 18 16 16 Respiratory rate source Observation Observation Observation Oxygen Delivery Method Room Air Room Air Blood Pressure (90/60-120/80) 119/67 113/64 Blood Pressure Mean (mm Hg) 84 80 Source Monitor Monitor Monitor Position Sitting Sitting Blood Pressure Location Right Arm Left Arm History Since Last Visit- (Skip if this is Patient's initial visit) Have you changed medications since your No No No last visit? Any new allergies or adverse reactions No No No Had a fall/change in ADL's that may No No No increase risk of falls Signs or symptoms of abuse and/or No No No neglect since last visit Have you been in the hospital since your No No No last visit? Has dressing in place as prescribed Yes Yes Yes Has compression in place as prescribed N/A N/A N/A Has offloadiing in place as prescribed Yes N/A N/A Experienced any changes in pain level or No No No management Left Footwear Regular Shoe Right Footwear Regular Shoe Pain Scale: 0-10 Numeric Is Patient Pain Free? Yes Yes Yes 05/09/24 10:33 - Today's Visit Information Type of service Follow-up Visit (Physician/INSTRUMENTATION INSTRUCTOR ) Arrival Mode Walker Transfer Assistance Accompanied by SELF Patient Identification Verified (Name & Yes ) Patient Requires Transmission-Based Precautions Safety Precautions Fall Prevention Vital Signs Temperature (97.8 F-99.1 F) 97 F L Temperature Source Temporal Pulse Rate (60-100) 62 Pulse Location Monitor Respiratory Rate (12-18) 18 Respiratory rate source Observation Oxygen Delivery Method Room Air Blood Pressure (90/60-120/80) 105/49 L Blood Pressure Mean (mm Hg) 67 Source Monitor Position Sitting Blood Pressure Location Right Arm History Since Last Visit- (Skip if this is Patient's initial visit) Have you changed medications since your last visit? Any new allergies or adverse reactions Had a fall/change in ADL's that may increase risk of falls Signs or symptoms of abuse and/or neglect since last visit Have you been in the hospital since your last visit? Has dressing in place as prescribed Yes Has compression in place as prescribed Yes Has offloadiing in place as prescribed Yes Experienced any changes in pain level or Yes management Left Footwear Regular Shoe Right Footwear Regular Shoe Pain Scale: 0-10 Numeric Is Patient Pain Free? Yes WC - Nurse 1 - General Ulcer Measurement Start: 04/18/24 13:08 Freq: Status: Active Protocol: Activity Type Activity Date Activity User E-sign Co-sign Detail Recorded Client Recorded Date Recorded By Document 04/18/24 13:08 DL [id number] 04/18/24 13:14 DL Document 04/25/24 10:41 CP [id number] 04/25/24 10:43 CP Document 05/02/24 09:40 [facility] [id number] 05/02/24 09:48 BMF Document 05/09/24 10:33 MT [id number] 05/09/24 10:36 MT 04/18/24 04/25/24 05/02/24 13:08 10:41 09:40 Wound Center Nurse 1 #1 R BUTTOCK -Combined with other wound No -Current Size (cm) - Length 1 0.7 0.6 -Current Size (cm) - Width 0.6 0.5 0.4 -Current Size (cm) - Depth 1.8 1 1 -Total Square Cm 0.6 0.35 0.24 -Date of Last Picture (Recall this 05/02/24 field) -Photo Taken Yes Yes -Epithelialization Small 1-33% -Tunneling -Tunneling Position (O'clock) -Tunneling Distance (cm) -Undermining/Tunneling -Circular Undermining -Exudate Amt Small Medium -Exudate Type Serosanguineous Serosanguineous -Wound Margin Thickened Distinct, Outline Attached -Granulation Amt Large (67-100%) Large (67-100%) Large (67-100%) -Granulation Quality [place] -Necrosis Amt Small (1-33%) -Necrotic Tissue Type Adherent Slough -Structure Exposed N/A -Texture (Anne-wound Skin Appearance) Scarring Assessed -Moisture (Anne-wound Skin Appearance) Maceration Maceration Assessed -Color (Anne-wound Skin Appearance) No Abnormality No Abnormality Assessed -Temperature (Anne-wound Skin No Abnormality No Abnormality No Abnormality Appearance) (Pt Warm) (Pt Warm) (Pt Warm) -Tenderness on Palpation (Anne-wound No No Skin Appearance) -Ulcer Cleansing Soap and Water Soap and Water Soap and Water -Foul Odor after Cleansing No No No -Anesthetic Used 5% Lidocaine 4% Lidocaine 5% Lidocaine Gel Solution Gel Lower Limb Edema Present 05/09/24 10:33 Wound Center Nurse 1 #1 R BUTTOCK -Combined with other wound -Current Size (cm) - Length 0.1 -Current Size (cm) - Width 0.1 -Current Size (cm) - Depth 0.1 -Total Square Cm 0.01 -Date of Last Picture (Recall this 05/09/24 field) -Photo Taken Yes -Epithelialization Large 67-100% -Tunneling Yes -Tunneling Position (O'clock) 12 -Tunneling Distance (cm) 0.4 -Undermining/Tunneling No -Circular Undermining No -Exudate Amt None Present -Exudate Type -Wound Margin Flat & Intact -Granulation Amt None Present (0 %) -Granulation Quality Pale,[place] -Necrosis Amt None Present (0 %) -Necrotic Tissue Type -Structure Exposed -Texture (Anne-wound Skin Appearance) Assessed -Moisture (Anne-wound Skin Appearance) Assessed -Color (Anne-wound Skin Appearance) Assessed -Temperature (Anne-wound Skin No Abnormality Appearance) (Pt Warm) -Tenderness on Palpation (Anne-wound No Skin Appearance) -Ulcer Cleansing Rinsed/ Irrigated with Saline -Foul Odor after Cleansing No -Anesthetic Used 5% Lidocaine Gel Lower Limb Edema Present NA WC - Nurse 2 - General Ulcer CM Notes Start: 04/18/24 13:08 Freq: Status: Active Protocol: Activity Type Activity Date Activity User E-sign Co-sign Detail Recorded Client Recorded Date Recorded By Document 04/18/24 13:34 GM [id number] 04/18/24 13:46 GM Document 04/25/24 10:48 BMF [id number] 04/25/24 10:55 BMF Document 05/02/24 10:05 BMF [id number] 05/02/24 10:11 BMF Document 05/09/24 11:00 CP [id number] 05/09/24 11:01 CP 04/18/24 04/25/24 05/02/24 13:34 10:48 10:05 Wound Center Nurse 2 #1 R BUTTOCK -Time 13:34 10:48 10:05 -Correct Patient Yes Yes Yes -Correct Side, Site, Position Yes Yes Yes -Correct Procedure Yes Yes Yes -Procedure Performed Yes Yes Yes -Type of Procedure Debridement Debridement Debridement -Clinical Debridement Subcutaneous Muscle / Fascia Muscle / Fascia -Tissue Removed Subcutaneous Muscle Muscle,Fascia -Post Debridement (cm) - Length 1.2 0.7 0.5 -Post Debridement (cm) - Width 0.8 0.4 0.2 -Post Debridement (cm) - Depth 0.3 1.3 1.6 -Total Square (Post) (cm) 0.96 0.28 0.10 -Area of Debridement (cm) - Length 1.2 0.7 0.5 -Area of Debridement (cm) - Width 0.8 0.4 0.2 -Total Square (Area) (cm) 0.96 0.28 0.10 -Tunneling No No No -Undermining/Tunneling No No No -Circular Undermining No No No -Wound/Ulcer Outcome Not Healed Not Healed Not Healed -Ulcer Cleansing Rinsed/ Rinsed/ Rinsed/ Irrigated with Irrigated with Irrigated with Saline Saline Saline -Foul Odor after Cleansing No No No -Bioengineered Tissue Yes No -Type of Bioengineered Tissue Epifix -Expiration Date 09/11/28 -Product Lot Number [id number] -Percent Used 100 -Lot number of Saline Used [id number] -Bleeding Controlled with Pressure Pressure Pressure -Treatment Response Procedure Procedure Procedure Tolerated Well Tolerated Well Tolerated Well -Assistive Device(s) Walker -Debridement - Subq, 1st 20sq cm No -Debridement - Muscle / Fascia, 1st Yes Yes 20sq cm -Apply Skin Sub - 1st 25 sq cm - Legs 1 -Epifix (per sq cm) 4 Pain Scale: 0-10 Numeric Is Patient Pain Free? Yes Yes Yes 05/09/24 11:00 Wound Center Nurse 2 #1 R BUTTOCK -Time 11:00 -Correct Patient -Correct Side, Site, Position -Correct Procedure -Procedure Performed -Type of Procedure -Clinical Debridement -Tissue Removed -Post Debridement (cm) - Length 0 -Post Debridement (cm) - Width 0 -Post Debridement (cm) - Depth 0 -Total Square (Post) (cm) 0 -Area of Debridement (cm) - Length -Area of Debridement (cm) - Width -Total Square (Area) (cm) -Tunneling -Undermining/Tunneling -Circular Undermining -Wound/Ulcer Outcome Healed- Epithelialized -Ulcer Cleansing -Foul Odor after Cleansing -Bioengineered Tissue -Type of Bioengineered Tissue -Expiration Date -Product Lot Number -Percent Used -Lot number of Saline Used -Bleeding Controlled with -Treatment Response -Assistive Device(s) -Debridement - Subq, 1st 20sq cm -Debridement - Muscle / Fascia, 1st 20sq cm -Apply Skin Sub - 1st 25 sq cm - Legs -Epifix (per sq cm) Pain Scale: 0-10 Numeric Is Patient Pain Free? Yes WC - Nurse 3 - General Ulcer D/C NN Start: 04/18/24 13:08 Freq: Status: Active Protocol: Activity Type Activity Date Activity User E-sign Co-sign Detail Recorded Client Recorded Date Recorded By Document 04/18/24 13:51 KW [id number] 04/18/24 13:51 KW Document 04/25/24 11:15 CP [id number] 04/25/24 11:16 CP Document 05/02/24 10:30 BMF [id number] 05/02/24 10:31 BMF Document 05/09/24 11:14 DL [id number] 05/09/24 11:17 DL 04/18/24 04/25/24 05/02/24 13:51 11:15 10:30 Wound Care Center Nurse 3 #1 R BUTTOCK -Ulcer Cleansing Rinsed/ Rinsed/ Irrigated with Irrigated with Saline Saline -Foul Odor after Cleansing No No -Negative Pressure Wound Therapy Continue Continue -Setting (mmHg) 125 150 -Negative Pressure is Continuous Continuous -Primary Dressing Applied Promogran -Primary Dressing Covered/Secured with Dry Gauze, Secured with Tape -NPWT Application Charge NPWT & NPWT & Debridement (nc Debridement (nc ) ) -Promogran 1 -Wound Comment(s) Treatment Response Procedure Procedure Tolerated Well Tolerated Well Pain Scale: 0-10 Numeric Is Patient Pain Free? Yes Yes Yes WC - Visit Discharge Discharge Condition Stable Stable Stable Ambulatory Status Ambulatory, Ambulatory,Cane Walker Transportation Private Auto Accompanied by AND LIDYA Medication Reconcilliation completed & Yes provided to patient/care provider 05/09/24 11:14 Wound Care Center Nurse 3 #1 R BUTTOCK -Ulcer Cleansing Rinsed/ Irrigated with Saline -Foul Odor after Cleansing No -Negative Pressure Wound Therapy -Setting (mmHg) -Negative Pressure is -Primary Dressing Applied -Primary Dressing Covered/Secured with -NPWT Application Charge -Promogran -Wound Comment(s) No dressing. Healed. discharged. Treatment Response Procedure Tolerated Well Pain Scale: 0-10 Numeric Is Patient Pain Free? 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
--- NOTE | 2024-05-15 15:00 | WC ---
PHOTO 05/09/24 RIGHT BUTTOCKS
== END 2024-05-12 23:59 | disposition home or self-care (01) ==
LOC: WC 10:30
PROVIDERS: PCP Family Medicine; Referring Provider Family Medicine; Visit Provider Nurse Practitioner
DX: T81.89XA Other complications of procedures, not elsewhere classified, initial encounter (principal); L98.419 Non-pressure chronic ulcer of buttock with unspecified severity; Z86.718 Personal history of other venous thrombosis and embolism; Z79.01 Long term (current) use of anticoagulants; L08.9 Local infection of the skin and subcutaneous tissue, unspecified; S31.819D Unspecified open wound of right buttock, subsequent encounter
CPT/HCPCS: 11043; 15271; 99212; Q4186; G0463